=== PATIENT | male | born 1940 | race African-American/Black ===

== ENCOUNTER 2018-04-10 12:35 | Inpatient (IN) | payer MEDICARE ==
[~2018-04-10] VITALS: Ht 167.6 cm; Wt 79.8 kg
--- NOTE | 2018-04-10 14:04 | RAD ---
Portable chest, 04/10/2018: HISTORY: Dizziness, slurred speech, left-sided weakness The heart size and pulmonary vascularity are normal. There is calcific plaquing of the aorta. There is mild linear atelectasis or scarring in the lung bases. The upper lung elias are clear. There is no evidence of pleural fluid or pneumothorax. Moderate hypertrophic spurring is present in the spine. IMPRESSION: Mild bibasilar linear atelectasis and/or scarring. Electronically signed by: Bright Silverio MD (04/10/2018 2:01 PM) [facility]
[2018-04-10 14:13] LABS: BASO # 0.1 x10^3/uL (0.0-0.2); BASO % 1 % (0-3); EOS # 0.2 x10^3/uL (0.0-0.7); EOS % 4 % (0-3); HEMATOCRIT 43.5 % (39.0-53.0); HEMOGLOBIN 14.8 g/dL (13.0-17.5); LYMPH # 1.6 x10^3/uL (1.0-4.8); LYMPH % 24 % (24-48); MEAN CORPUSCULAR HEMOGLOBIN 33 pg (25-35); MEAN CORPUSCULAR HGB CONC 34 g/dL (31-37); MEAN CORPUSCULAR VOLUME 98 fL (79-100); MONO # 0.5 x10^3/uL (0.0-1.1); MONO % 8 % (0-9); NEUT # 4.1 x10^3uL (1.8-7.7); NEUT % 63 % (31-73); PLATELET COUNT 226 x10^3/uL (140-400); RED BLOOD COUNT 4.46 x10^6/uL (4.30-5.70); RED CELL DISTRIBUTION WIDTH 13.3 % (11.5-14.5); WHITE BLOOD COUNT 6.5 x10^3/uL (4.0-11.0)
[2018-04-10 14:22] LABS: PROTHROMBIN TIME PATIENT 12.4 SEC (11.7-14.0)
[2018-04-10 14:26] LABS: CALCIUM 9.8 mg/dL (8.5-10.1); CREATININE 0.9 mg/dL (0.7-1.3); POTASSIUM 4.1 mmol/L (3.5-5.1)
[2018-04-10 14:31] LABS: ALBUMIN 3.8 g/dL (3.4-5.0); BARBITURATES NEG (NEG); BENZODIAZEPINES NEG (NEG); CANNABINOIDS NEG (NEG); COCAINE NEG (NEG); MAGNESIUM 2.2 mg/dL (1.8-2.4); METHADONE NEG (NEG); OPIATES NEG (NEG); PHENCYCLIDINE NEG (NEG); TOTAL PROTEIN 7.6 g/dL (6.4-8.2)
[2018-04-10 14:32] LABS: AMPHETAMINE/METHAMPHETAMINE NEG (NEG)
--- NOTE | 2018-04-10 14:32 | RAD ---
CT of the head without contrast, 04/10/2018: HISTORY: Weakness, dizziness, fall, slurred speech There is mild bilateral cerebral atrophy. There are moderate bilateral patchy deep white matter lucencies compatible with chronic ischemic change. The ventricles are within normal limits in size. There is no shift of the midline structures. There is no evidence of acute intracranial hemorrhage or mass effect. A tiny lucency along the lateral aspect of the right caudate nucleus is compatible with an old lacunar infarct. No abnormal extra-axial fluid collection or mass is seen. A bony defect in the mastoid sinus region is presumably postsurgical. IMPRESSION: 1. Moderate patchy deep white matter lucencies compatible with chronic ischemic change. 2. Tiny old lacunar infarct in the anterior aspect of the right basal ganglia. 3. No acute intracranial abnormality is detected. 4. MR scanning would be more sensitive method of evaluation, if clinically indicated. PQRS Compliance Statement: One or more of the following individualized dose reduction techniques were utilized for this examination: 1. Automated exposure control 2. Adjustment of the mA and/or kV according to patient size 3. Use of iterative reconstruction technique Electronically signed by: Bright Silverio MD (04/10/2018 2:29 PM) [facility]
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
[2018-04-10] MEDS ORDERED: IBUPROFEN 400 MG TABLET. PO PRN (15:15)
[2018-04-10] MEDS ORDERED: ASPIRIN ENTERIC COATED 325 MG TABLET.DR. PO ONE (15:15)
[2018-04-10] MEDS ORDERED: MAGNESIUM HYDROXIDE 2,400 MG/30 ML ORAL.SUSP. PO PRN (15:15)
[2018-04-10] MEDS ORDERED: LABETALOL 20 MG/4 ML DISP.SYRIN. IVP PRN (15:15)
[2018-04-10] MEDS ORDERED: oxyCODONE IR 5 MG TABLET PO PRN (15:15)
[2018-04-10] MEDS ORDERED: MORPHINE SULFATE 2 MG/ML VIAL. IV PRN (15:15)
[2018-04-10] MEDS ORDERED: LABETALOL 20 MG/4 ML DISP.SYRIN. IVP ONE (15:15)
[2018-04-10] MEDS ORDERED: ASPIRIN 325 MG TABLET PO ONE (15:15)
[2018-04-10] MEDS ORDERED: CALCIUM CARBONATE 500 MG TAB.CHEW PO PRN (15:15)
[2018-04-10] MEDS ORDERED: MAG HYDROX/ALUMINUM HYD/SIMETH 30 ML ORAL.SUSP PO PRN (15:15)
[2018-04-10] MEDS ORDERED: ONDANSETRON PF 4 MG/2 ML VIAL. IV PRN ×2 (15:15)
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
[2018-04-10] MEDS ORDERED: MINERAL OIL/PETROLATUM TOPICAL CREAM 113GM JAR. TP PRN (15:30)
--- NOTE | 2018-04-10 15:32 | PHYS DOC ---
Past Medical History Past Medical History: No Pertinent History Alcohol Use: None Drug Use: None Adult General Chief Complaint Chief Complaint: DIZZY/LIGHT HEADED HPI HPI Patient is a 77 year old male with no significant medical history who presents today complaining of left-sided weakness, slurred speech, and dizziness when up and moving that began yesterday. Patient states symptoms began at 12/ noon yesterday. He states he has trouble moving his left upper extremity as well as left lower extremity. Patient states he felt this morning due to difficulty ambulating, denies any loss of consciousness. Denies any headache, chest pain or shortness of breath. PCP Dr. Mitchell Winters Review of Systems Review of Systems Constitutional: Denies fever or chills [] Eyes: Denies change in visual acuity, redness, or eye pain [] HENT: Denies nasal congestion or sore throat [] Respiratory: Denies cough or shortness of breath [] Cardiovascular: No additional information not addressed in HPI [] GI: Denies abdominal pain, nausea, vomiting, bloody stools or diarrhea [] : Denies dysuria or hematuria [] Musculoskeletal: Denies back pain or joint pain [] Integument: Denies rash or skin lesions [] Neurologic: Reports dizziness and left-sided weakness. Denies headache, focal weakness or sensory changes [] All other systems were reviewed and found to be within normal limits, except as documented in this note. Current Medications Current Medications Allergies Allergies Physical Exam Physical Exam Constitutional: Well developed, well nourished, no acute distress, non-toxic appearance. [] HENT: Normocephalic, atraumatic, bilateral external ears normal, oropharynx moist, no oral exudates, nose normal. [] Eyes: PERRLA, EOMI, conjunctiva normal, no discharge. [] Neck: Normal range of motion, no tenderness, supple, no stridor. [] Cardiovascular:Heart rate regular rhythm, no murmur [] Lungs & Thorax: Bilateral breath sounds clear to auscultation [] Abdomen: Bowel sounds normal, soft, no tenderness, no masses, no pulsatile masses. [] Skin: Warm, dry, no erythema, no rash. [] Back: No tenderness, no CVA tenderness. [] Extremities: No tenderness, no cyanosis, no clubbing, no edema. [] Neurologic: Alert and oriented X 3, normal motor function, normal sensory function, no focal deficits noted. Cranial nerves II through XII intact. Slight weakness noted on the left upper extremity and left lower extremity and physical exam. Psychologic: Affect normal, judgement normal, mood normal. [] Current Patient Data Vital Signs Vital Signs Date Time Temp Pulse Resp B/P (MAP) Pulse Ox O2 Delivery O2 Flow Rate FiO2 04/10/18 14:30 64 14 98 04/10/18 13:16 98.1 149/84 (105) Room Air 98.1 Lab Values Laboratory Tests Test 04/10/18 14:00 White Blood Count 6.5 x10^3/uL (4.0-11.0) Red Blood Count 4.46 x10^6/uL (4.30-5.70) Hemoglobin 14.8 g/dL (13.0-17.5) Hematocrit 43.5 % (39.0-53.0) Mean Corpuscular Volume 98 fL (79-100) Mean Corpuscular Hemoglobin 33 pg (25-35) Mean Corpuscular Hemoglobin Concent 34 g/dL (31-37) Red Cell Distribution Width 13.3 % (11.5-14.5) Platelet Count 226 x10^3/uL (140-400) Neutrophils (%) (Auto) 63 % (31-73) Lymphocytes (%) (Auto) 24 % (24-48) Monocytes (%) (Auto) 8 % (0-9) Eosinophils (%) (Auto) 4 % (0-3) H Basophils (%) (Auto) 1 % (0-3) Neutrophils # (Auto) 4.1 x10^3uL (1.8-7.7) Lymphocytes # (Auto) 1.6 x10^3/uL (1.0-4.8) Monocytes # (Auto) 0.5 x10^3/uL (0.0-1.1) Eosinophils # (Auto) 0.2 x10^3/uL (0.0-0.7) Basophils # (Auto) 0.1 x10^3/uL (0.0-0.2) Prothrombin Time 12.4 SEC (11.7-14.0) Prothrombin Time INR 1.0 (0.8-1.1) PTT 26 SEC (24-38) Sodium Level 139 mmol/L (136-145) Potassium Level 4.1 mmol/L (3.5-5.1) Chloride Level 103 mmol/L (98-107) Carbon Dioxide Level 27 mmol/L (21-32) Anion Gap 9 (6-14) Blood Urea Nitrogen 16 mg/dL (8-26) Creatinine 0.9 mg/dL (0.7-1.3) Estimated GFR (Cockcroft-Gault) 99.0 BUN/Creatinine Ratio 18 (6-20) Glucose Level 116 mg/dL (70-99) H Calcium Level 9.8 mg/dL (8.5-10.1) Magnesium Level 2.2 mg/dL (1.8-2.4) Total Bilirubin 1.0 mg/dL (0.2-1.0) Aspartate Amino Transferase (AST) 19 U/L (15-37) Alanine Aminotransferase (ALT) 20 U/L (16-63) Alkaline Phosphatase 69 U/L (46-116) Troponin I Quantitative < 0.017 ng/mL (0.000-0.055) CQ-Uko-N-Type Natriuretic Peptide 52 pg/mL (0-449) Total Protein 7.6 g/dL (6.4-8.2) Albumin 3.8 g/dL (3.4-5.0) Albumin/Globulin Ratio 1.0 (1.0-1.7) Urine Opiates Screen Neg (NEG) Urine Methadone Screen Neg (NEG) Urine Barbiturates Neg (NEG) Urine Phencyclidine Screen Neg (NEG) Urine Amphetamine/Methamphetamine Neg (NEG) Urine Benzodiazepines Screen Neg (NEG) Urine Cocaine Screen Neg (NEG) Urine Cannabinoids Screen Neg (NEG) Urine Ethyl Alcohol Neg (NEG) Laboratory Tests 04/10/18 14:00 Laboratory Tests 04/10/18 14:00 EKG EKG 13:[address] Momin sinus rhythma Hr 61 no STEMI[] Radiology/Procedures Radiology/Procedures []PROCEDURE: PORTABLE CHEST 1V Portable chest, 04/10/2018: HISTORY: Dizziness, slurred speech, left-sided weakness The heart size and pulmonary vascularity are normal. There is calcific plaquing of the aorta. There is mild linear atelectasis or scarring in the lung bases. The upper lung elias are clear. There is no evidence of pleural fluid or pneumothorax. Moderate hypertrophic spurring is present in the spine. IMPRESSION: Mild bibasilar linear atelectasis and/or scarring. Electronically signed by: Bright Silverio MD (04/10/2018 2:01 PM) [facility] DICTATED and SIGNED BY: BRIGHT SILVERIO MD DATE: 04/10/18 1400 PROCEDURE: CT HEAD WO CONTRAST CT of the head without contrast, 04/10/2018: HISTORY: Weakness, dizziness, fall, slurred speech There is mild bilateral cerebral atrophy. There are moderate bilateral patchy deep white matter lucencies compatible with chronic ischemic change. The ventricles are within normal limits in size. There is no shift of the midline structures. There is no evidence of acute intracranial hemorrhage or mass effect. A tiny lucency along the lateral aspect of the right caudate nucleus is compatible with an old lacunar infarct. No abnormal extra-axial fluid collection or mass is seen. A bony defect in the mastoid sinus region is presumably postsurgical. IMPRESSION: 1. Moderate patchy deep white matter lucencies compatible with chronic ischemic change. 2. Tiny old lacunar infarct in the anterior aspect of the right basal ganglia. 3. No acute intracranial abnormality is detected. 4. MR scanning would be more sensitive method of evaluation, if clinically indicated. PQRS Compliance Statement: One or more of the following individualized dose reduction techniques were utilized for this examination: 1. Automated exposure control 2. Adjustment of the mA and/or kV according to patient size 3. Use of iterative reconstruction technique Electronically signed by: Bright Silverio MD (04/10/2018 2:29 PM) [facility] DICTATED and SIGNED BY: BRIGHT SILVERIO MD DATE: 04/10/18 1425 PROCEDURE: BRAIN W/O CONTRAST MRI of the brain without contrast 04/10/2018 Clinical History: Dizziness with left-sided weakness. Slurred speech. Technique: Unenhanced T1-weighted sagittal and axial, T2-weighted axial and coronal and FLAIR, gradient echo and diffusion-weighted axial images of the brain were obtained. Findings: Comparison is made to the patient's CT scan of the head dated 04/10/2018. There is generalized parenchymal atrophy. Patchy, confluent and multiple focal areas of increased signal intensity are seen within the periventricular and subcortical white matter of both cerebral hemispheres along with the vashti on the FLAIR and T2-weighted images consistent with areas of fairly extensive small vessel ischemic disease. Multiple areas of restricted diffusion are seen scattered throughout the right frontal and parietal lobes. These measure 4 mm to 1.6 cm in size. A 5 mm area of restricted diffusion is seen involving the posterior right temporal lobe. These are consistent with areas of acute ischemia/infarction. There is no significant surrounding edema or associated mass effect at this time. No additional acute parenchymal abnormality is seen. No extra-axial fluid collection is seen. Mild to moderate mucosal thickening in seen scattered throughout the paranasal sinuses. There are small bilateral mastoid effusions. Normal flow voids are seen within the major vascular structures surrounding the brain parenchyma. Impression: Multiple areas of acute ischemia/infarction are seen involving the posterior right temporal lobe and the right frontal and parietal lobes as outlined above. There is no significant surrounding edema or associated mass effect at this time. These findings were discussed with the emergency department. Electronically signed by: Lokesh Raman MD (04/10/2018 4:15 PM) [id number] DICTATED and SIGNED BY: LOKESH RAMAN MD DATE: 04/10/18 1609 Course & Med Decision Making Course & Med Decision Making Pertinent Labs and Imaging studies reviewed. (See chart for details) This is a 77-year-old male patient presenting to the ED today with left-sided weakness, slurred speech, dizziness that began yesterday. Stroke scale 6 BP on arrival 149/84 Patient's labs are negative for any acute findings. CT of the head was negative for any acute findings, noted for old lacunar. 15:09 Consulted with who requested we order an MRI for patient. Admitted under DR. Valadez MRI was done and noted for- Multiple areas of acute ischemia/infarction are seen involving the posterior right temporal lobe and the right frontal and parietal lobes. There is no significant surrounding edema or associated mass effect at this time. 16:[address] Tavarez who is in the Ed with patient right now. Dragon Disclaimer Dragon Disclaimer This electronic medical record was generated, in whole or in part, using a voice recognition dictation system. Departure Departure Impression: Primary Impression: Left-sided weakness Additional Impressions: Slurred speech Stroke Disposition: 09 ADMITTED INPATIENT Condition: STABLE Referrals: ULISSES NOWAK MD (PCP) NIHSS Stroke Scale NIH Stroke Scale: NIH Stroke Scale Response (Comments) Value Level of Consciousness: 0 Alert/Responsive 0 LOC Questions: 0 Answers both correctly 0 LOC Commands: 0 Performs both tasks 0 Best Gaze: 0 Normal 0 Visual: 0 No visual loss 0 Facial Palsy: 1 Minor paralysis 1 Motor - Left Arm 2 Some effort 2 Motor - Right Arm 0 No drift 0 Motor - Left Leg 2 Some effort 2 Motor: Right Leg 0 No drift 0 Limb Ataxia: 1 One limb 1 Sensory: 0 No loss 0 Best Language: 0 Normal 0 Dysathria: 0 Normal 0 Extinction and Inattention: 0 Normal 0 Total 6 Problem Qualifiers Additional Impressions: Stroke CVA mechanism: unspecified Qualified Codes: I63.9 - Cerebral infarction, unspecified ROD CHURCHILL APRN Apr 10, 2018 15:32
[2018-04-10] MEDS ORDERED: ENALAPRILAT 1.25 MG/ML VIAL. IVP PRN ×2 (15:45→16:30)
--- NOTE | 2018-04-10 16:17 | RAD ---
MRI of the brain without contrast 04/10/2018 Clinical History: Dizziness with left-sided weakness. Slurred speech. Technique: Unenhanced T1-weighted sagittal and axial, T2-weighted axial and coronal and FLAIR, gradient echo and diffusion-weighted axial images of the brain were obtained. Findings: Comparison is made to the patient's CT scan of the head dated 04/10/2018. There is generalized parenchymal atrophy. Patchy, confluent and multiple focal areas of increased signal intensity are seen within the periventricular and subcortical white matter of both cerebral hemispheres along with the vashti on the FLAIR and T2-weighted images consistent with areas of fairly extensive small vessel ischemic disease. Multiple areas of restricted diffusion are seen scattered throughout the right frontal and parietal lobes. These measure 4 mm to 1.6 cm in size. A 5 mm area of restricted diffusion is seen involving the posterior right temporal lobe. These are consistent with areas of acute ischemia/infarction. There is no significant surrounding edema or associated mass effect at this time. No additional acute parenchymal abnormality is seen. No extra-axial fluid collection is seen. Mild to moderate mucosal thickening in seen scattered throughout the paranasal sinuses. There are small bilateral mastoid effusions. Normal flow voids are seen within the major vascular structures surrounding the brain parenchyma. Impression: Multiple areas of acute ischemia/infarction are seen involving the posterior right temporal lobe and the right frontal and parietal lobes as outlined above. There is no significant surrounding edema or associated mass effect at this time. These findings were discussed with the emergency department. Electronically signed by: Lokesh Raman MD (04/10/2018 4:15 PM) [id number]
[2018-04-10 17:00] VITALS: BP 176/91
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
[2018-04-10 19:37] VITALS: BP 125/71
[2018-04-10] MEDS ORDERED: ATORVASTATIN CALCIUM 10 MG TABLET. PO SCH (21:00)
[2018-04-10] MEDS: ENOXAPARIN 40 MG/0.4 ML SYRINGE. SQ SCH (21:19)
[2018-04-10 23:31] VITALS: BP 159/69
[2018-04-11] VITALS (7 sets, daily range): BP systolic 121–178; BP diastolic 56–93
[2018-04-11 00:54] LABS: BILIRUBIN,URINE NEGATIVE (NEG); CLARITY,URINE CLEAR; COLOR,URINE YELLOW; NITRITE,URINE NEGATIVE (NEG); PH,URINE 5.5; PROTEIN,URINE NEGATIVE (NEG-TRACE)
[2018-04-11 01:09] LABS: BACTERIA,URINE 0 /HPF (0-FEW); RBC,URINE RARE /HPF (0-2); WBC,URINE RARE /HPF (0-4)
[2018-04-11 04:29] LABS: CHOLESTEROL/HDL RATIO 3.6
[2018-04-11] MEDS ORDERED: ASPIRIN ENTERIC COATED 325 MG TABLET.DR. PO SCH (08:00)
--- NOTE | 2018-04-11 08:28 | RAD ---
Carotid ultrasound, 04/10/2018: HISTORY: Dizziness, slurred speech, left-sided weakness Duplex evaluation of the carotid arteries and neck was performed including grayscale, color-flow and spectral Doppler analysis. There is moderate intimal thickening in the carotid arteries bilaterally with mild smooth plaquing at the left carotid bifurcation. The peak systolic velocity in the left internal carotid artery is 73 cm/s with an end-diastolic velocity of 19 cm/s and an internal carotid to common carotid artery ratio of 0.8. The findings suggest luminal narrowing in the 0-50 percent diameter range. There is extensive partially calcified plaque at the right carotid bifurcation. There is a prominent velocity acceleration in the proximal right internal carotid artery up to 360 cm/s. The end-diastolic velocity at that level is 162 cm/s. The internal carotid to common carotid artery ratio is 4.7. These Doppler findings suggest luminal narrowing in the 70-99 percent diameter range. Antegrade flow is present in both vertebral arteries in the neck. IMPRESSION: 1. Mild atherosclerotic plaquing at the left carotid bifurcation with underlying luminal narrowing in the 0-50 percent diameter range. 2. Moderate to severe atherosclerotic plaquing at the right carotid bifurcation with Doppler evidence of narrowing of the proximal right internal carotid artery in the 70-99 percent diameter range. Note: The findings were called to the patient's nurse on the floor at 8:24 AM on 04/11/2018. Note: Stenosis calculations for CT, MRA and conventional angiography are based upon determination of the distal ICA diameter in accordance with the NASCET methodology. Stenosis calculations for Doppler studies are derived from validated velocity criteria which are known to correlate with NASCET methodology of determining stenosis. Electronically signed by: Bright Silverio MD (04/11/2018 8:25 AM) [facility]
[2018-04-11] MEDS: AMINO AC 3%/ELECTROLYTE/GLYCER 1,000 ML IV SCH ×2 (10:16→23:17)
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
--- NOTE | 2018-04-11 10:57 | PDOC ---
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% History of Present Illness History of Present Illness Multiple strokes on MRI Neurology aware and has ordered echo with bubble study Called by RN this morning, 70-99% high-grade stenosis right ICA bifurcation Patient failed swallow Pt did ambulate around the halls with physical therapy yesterday Plan: [facility]As surgery consult-I have discussed with the service Continue aspirin maybe per rectum for now since failed swallow Start some ProcalAmine Echo with bubble today Intermittent speech eval PT OT-I have reviewed rehabilitation options with family and they seemed agreeable Further conditions pending above course Discussed with RN at bedside Vitals Vitals Vital Signs Date Time Temp Pulse Resp B/P (MAP) Pulse Ox O2 Delivery O2 Flow Rate FiO2 04/11/18 07:20 98.4 66 18 121/56 (77) 97 Room Air 98.4 Physical Exam General: Alert, Oriented X3, No acute distress Heart: Regular rate, Normal S1, Normal S2 Abdomen: Soft, No tenderness Extremities: Normal pulses Skin: No breakdown, Other (very dry skin) Labs LABS Laboratory Tests Test 04/10/18 14:00 04/11/18 00:30 04/11/18 03:15 White Blood Count 6.5 x10^3/uL (4.0-11.0) Red Blood Count 4.46 x10^6/uL (4.30-5.70) Hemoglobin 14.8 g/dL (13.0-17.5) Hematocrit 43.5 % (39.0-53.0) Mean Corpuscular Volume 98 fL (79-100) Mean Corpuscular Hemoglobin 33 pg (25-35) Mean Corpuscular Hemoglobin Concent 34 g/dL (31-37) Red Cell Distribution Width 13.3 % (11.5-14.5) Platelet Count 226 x10^3/uL (140-400) Neutrophils (%) (Auto) 63 % (31-73) Lymphocytes (%) (Auto) 24 % (24-48) Monocytes (%) (Auto) 8 % (0-9) Eosinophils (%) (Auto) 4 % (0-3) Basophils (%) (Auto) 1 % (0-3) Neutrophils # (Auto) 4.1 x10^3uL (1.8-7.7) Lymphocytes # (Auto) 1.6 x10^3/uL (1.0-4.8) Monocytes # (Auto) 0.5 x10^3/uL (0.0-1.1) Eosinophils # (Auto) 0.2 x10^3/uL (0.0-0.7) Basophils # (Auto) 0.1 x10^3/uL (0.0-0.2) Prothrombin Time 12.4 SEC (11.7-14.0) Prothromb Time International Ratio 1.0 (0.8-1.1) Activated Partial Thromboplast Time 26 SEC (24-38) Sodium Level 139 mmol/L (136-145) Potassium Level 4.1 mmol/L (3.5-5.1) Chloride Level 103 mmol/L (98-107) Carbon Dioxide Level 27 mmol/L (21-32) Anion Gap 9 (6-14) Blood Urea Nitrogen 16 mg/dL (8-26) Creatinine 0.9 mg/dL (0.7-1.3) Estimated GFR (Cockcroft-Gault) 99.0 BUN/Creatinine Ratio 18 (6-20) Glucose Level 116 mg/dL (70-99) Calcium Level 9.8 mg/dL (8.5-10.1) Magnesium Level 2.2 mg/dL (1.8-2.4) Total Bilirubin 1.0 mg/dL (0.2-1.0) Aspartate Amino Transf (AST/SGOT) 19 U/L (15-37) Alanine Aminotransferase (ALT/SGPT) 20 U/L (16-63) Alkaline Phosphatase 69 U/L (46-116) Troponin I Quantitative < 0.017 ng/mL (0.000-0.055) HV-Fmg-J-Type Natriuretic Peptide 52 pg/mL (0-449) Total Protein 7.6 g/dL (6.4-8.2) Albumin 3.8 g/dL (3.4-5.0) Albumin/Globulin Ratio 1.0 (1.0-1.7) Thyroid Stimulating Hormone (TSH) 0.659 uIU/mL (0.358-3.74) Urine Opiates Screen Neg (NEG) Urine Methadone Screen Neg (NEG) Urine Barbiturates Neg (NEG) Urine Phencyclidine Screen Neg (NEG) Urine Amphetamine/Methamphetamine Neg (NEG) Urine Benzodiazepines Screen Neg (NEG) Urine Cocaine Screen Neg (NEG) Urine Cannabinoids Screen Neg (NEG) Urine Ethyl Alcohol Neg (NEG) Urine Collection Type Unknown Urine Color Yellow Urine Clarity Clear Urine pH 5.5 Urine Specific [place] 1.020 Urine Protein Negative mg/dL (NEG-TRACE) Urine Glucose (UA) Negative mg/dL (NEG) Urine Ketones (Stick) Trace mg/dL (NEG) Urine Blood Negative (NEG) Urine Nitrite Negative (NEG) Urine Bilirubin Negative (NEG) Urine Urobilinogen Dipstick 1.0 mg/dL (0.2 mg/dL) Urine Leukocyte Esterase Negative (NEG) Urine RBC Rare /HPF (0-2) Urine WBC Rare /HPF (0-4) Urine Squamous Epithelial Cells None /LPF Urine Bacteria 0 /HPF (0-FEW) Urine Mucus Mod /LPF Triglycerides Level 56 mg/dL (0-150) Cholesterol Level 242 mg/dL (0-200) LDL Cholesterol, Calculated 164 mg/dL (0-100) VLDL Cholesterol, Calculated 11 mg/dL (0-40) Non-HDL Cholesterol Calculated 175 mg/dL (0-129) HDL Cholesterol 67 mg/dL (40-60) Cholesterol/HDL Ratio 3.6 Review of Systems Review of Systems Pt voices no complaints Assessment and Plan Assessmemt and Plan Problems Medical Problems: (1) Brain TIA Status: Acute (2) Left-sided weakness Status: Acute (3) Slurred speech Status: Acute (4) Stroke Status: Acute Comment Review of Relevant I have reviewed the following items patsy (where applicable) has been applied. Labs Laboratory Tests Test 04/10/18 14:00 04/11/18 00:30 04/11/18 03:15 White Blood Count 6.5 x10^3/uL (4.0-11.0) Red Blood Count 4.46 x10^6/uL (4.30-5.70) Hemoglobin 14.8 g/dL (13.0-17.5) Hematocrit 43.5 % (39.0-53.0) Mean Corpuscular Volume 98 fL (79-100) Mean Corpuscular Hemoglobin 33 pg (25-35) Mean Corpuscular Hemoglobin Concent 34 g/dL (31-37) Red Cell Distribution Width 13.3 % (11.5-14.5) Platelet Count 226 x10^3/uL (140-400) Neutrophils (%) (Auto) 63 % (31-73) Lymphocytes (%) (Auto) 24 % (24-48) Monocytes (%) (Auto) 8 % (0-9) Eosinophils (%) (Auto) 4 % (0-3) Basophils (%) (Auto) 1 % (0-3) Neutrophils # (Auto) 4.1 x10^3uL (1.8-7.7) Lymphocytes # (Auto) 1.6 x10^3/uL (1.0-4.8) Monocytes # (Auto) 0.5 x10^3/uL (0.0-1.1) Eosinophils # (Auto) 0.2 x10^3/uL (0.0-0.7) Basophils # (Auto) 0.1 x10^3/uL (0.0-0.2) Prothrombin Time 12.4 SEC (11.7-14.0) Prothromb Time International Ratio 1.0 (0.8-1.1) Activated Partial Thromboplast Time 26 SEC (24-38) Sodium Level 139 mmol/L (136-145) Potassium Level 4.1 mmol/L (3.5-5.1) Chloride Level 103 mmol/L (98-107) Carbon Dioxide Level 27 mmol/L (21-32) Anion Gap 9 (6-14) Blood Urea Nitrogen 16 mg/dL (8-26) Creatinine 0.9 mg/dL (0.7-1.3) Estimated GFR (Cockcroft-Gault) 99.0 BUN/Creatinine Ratio 18 (6-20) Glucose Level 116 mg/dL (70-99) Calcium Level 9.8 mg/dL (8.5-10.1) Magnesium Level 2.2 mg/dL (1.8-2.4) Total Bilirubin 1.0 mg/dL (0.2-1.0) Aspartate Amino Transf (AST/SGOT) 19 U/L (15-37) Alanine Aminotransferase (ALT/SGPT) 20 U/L (16-63) Alkaline Phosphatase 69 U/L (46-116) Troponin I Quantitative < 0.017 ng/mL (0.000-0.055) SC-Ghu-B-Type Natriuretic Peptide 52 pg/mL (0-449) Total Protein 7.6 g/dL (6.4-8.2) Albumin 3.8 g/dL (3.4-5.0) Albumin/Globulin Ratio 1.0 (1.0-1.7) Thyroid Stimulating Hormone (TSH) 0.659 uIU/mL (0.358-3.74) Urine Opiates Screen Neg (NEG) Urine Methadone Screen Neg (NEG) Urine Barbiturates Neg (NEG) Urine Phencyclidine Screen Neg (NEG) Urine Amphetamine/Methamphetamine Neg (NEG) Urine Benzodiazepines Screen Neg (NEG) Urine Cocaine Screen Neg (NEG) Urine Cannabinoids Screen Neg (NEG) Urine Ethyl Alcohol Neg (NEG) Urine Collection Type Unknown Urine Color Yellow Urine Clarity Clear Urine pH 5.5 [address]rine Specific [place] 1.020 Urine Protein Negative mg/dL (NEG-TRACE) Urine Glucose (UA) Negative mg/dL (NEG) Urine Ketones (Stick) Trace mg/dL (NEG) Urine Blood Negative (NEG) Urine Nitrite Negative (NEG) Urine Bilirubin Negative (NEG) Urine Urobilinogen Dipstick 1.0 mg/dL (0.2 mg/dL) Urine Leukocyte Esterase Negative (NEG) Urine RBC Rare /HPF (0-2) Urine WBC Rare /HPF (0-4) Urine Squamous Epithelial Cells None /LPF Urine Bacteria 0 /HPF (0-FEW) Urine Mucus Mod /LPF Triglycerides Level 56 mg/dL (0-150) Cholesterol Level 242 mg/dL (0-200) LDL Cholesterol, Calculated 164 mg/dL (0-100) VLDL Cholesterol, Calculated 11 mg/dL (0-40) Non-HDL Cholesterol Calculated 175 mg/dL (0-129) HDL Cholesterol 67 mg/dL (40-60) Cholesterol/HDL Ratio 3.6 Laboratory Tests Test 04/10/18 14:00 04/11/18 00:30 04/11/18 03:15 White Blood Count 6.5 x10^3/uL (4.0-11.0) Red Blood Count 4.46 x10^6/uL (4.30-5.70) Hemoglobin 14.8 g/dL (13.0-17.5) Hematocrit 43.5 % (39.0-53.0) Mean Corpuscular Volume 98 fL (79-100) Mean Corpuscular Hemoglobin 33 pg (25-35) Mean Corpuscular Hemoglobin Concent 34 g/dL (31-37) Red Cell Distribution Width 13.3 % (11.5-14.5) Platelet Count 226 x10^3/uL (140-400) Neutrophils (%) (Auto) 63 % (31-73) Lymphocytes (%) (Auto) 24 % (24-48) Monocytes (%) (Auto) 8 % (0-9) Eosinophils (%) (Auto) 4 % (0-3) Basophils (%) (Auto) 1 % (0-3) Neutrophils # (Auto) 4.1 x10^3uL (1.8-7.7) Lymphocytes # (Auto) 1.6 x10^3/uL (1.0-4.8) Monocytes # (Auto) 0.5 x10^3/uL (0.0-1.1) Eosinophils # (Auto) 0.2 x10^3/uL (0.0-0.7) Basophils # (Auto) 0.1 x10^3/uL (0.0-0.2) Prothrombin Time 12.4 SEC (11.7-14.0) Prothromb Time International Ratio 1.0 (0.8-1.1) Activated Partial Thromboplast Time 26 SEC (24-38) Sodium Level 139 mmol/L (136-145) Potassium Level 4.1 mmol/L (3.5-5.1) Chloride Level 103 mmol/L (98-107) Carbon Dioxide Level 27 mmol/L (21-32) Anion Gap 9 (6-14) Blood Urea Nitrogen 16 mg/dL (8-26) Creatinine 0.9 mg/dL (0.7-1.3) Estimated GFR (Cockcroft-Gault) 99.0 BUN/Creatinine Ratio 18 (6-20) Glucose Level 116 mg/dL (70-99) Calcium Level 9.8 mg/dL (8.5-10.1) Magnesium Level 2.2 mg/dL (1.8-2.4) Total Bilirubin 1.0 mg/dL (0.2-1.0) Aspartate Amino Transf (AST/SGOT) 19 U/L (15-37) Alanine Aminotransferase (ALT/SGPT) 20 U/L (16-63) Alkaline Phosphatase 69 U/L (46-116) Troponin I Quantitative < 0.017 ng/mL (0.000-0.055) KG-Vhe-G-Type Natriuretic Peptide 52 pg/mL (0-449) Total Protein 7.6 g/dL (6.4-8.2) Albumin 3.8 g/dL (3.4-5.0) Albumin/Globulin Ratio 1.0 (1.0-1.7) Thyroid Stimulating Hormone (TSH) 0.659 uIU/mL (0.358-3.74) Urine Opiates Screen Neg (NEG) Urine Methadone Screen Neg (NEG) Urine Barbiturates Neg (NEG) Urine Phencyclidine Screen Neg (NEG) Urine Amphetamine/Methamphetamine Neg (NEG) Urine Benzodiazepines Screen Neg (NEG) Urine Cocaine Screen Neg (NEG) Urine Cannabinoids Screen Neg (NEG) Urine Ethyl Alcohol Neg (NEG) Urine Collection Type Unknown Urine Color Yellow Urine Clarity Clear Urine pH 5.5 [address]rine Specific [place] 1.020 Urine Protein Negative mg/dL (NEG-TRACE) Urine Glucose (UA) Negative mg/dL (NEG) Urine Ketones (Stick) Trace mg/dL (NEG) Urine Blood Negative (NEG) Urine Nitrite Negative (NEG) Urine Bilirubin Negative (NEG) Urine Urobilinogen Dipstick 1.0 mg/dL (0.2 mg/dL) Urine Leukocyte Esterase Negative (NEG) Urine RBC Rare /HPF (0-2) Urine WBC Rare /HPF (0-4) Urine Squamous Epithelial Cells None /LPF Urine Bacteria 0 /HPF (0-FEW) Urine Mucus Mod /LPF Triglycerides Level 56 mg/dL (0-150) Cholesterol Level 242 mg/dL (0-200) LDL Cholesterol, Calculated 164 mg/dL (0-100) VLDL Cholesterol, Calculated 11 mg/dL (0-40) Non-HDL Cholesterol Calculated 175 mg/dL (0-129) HDL Cholesterol 67 mg/dL (40-60) Cholesterol/HDL Ratio 3.6 Medications Current Medications Ondansetron HCl (Zofran) 4 mg PRN Q4HRS PRN IV NAUSEA/VOMITING; Start at 15:15; Status UNV Aspirin (Kamran Aspirin) 325 mg 1X ONCE PO ; Start 10/24/18 at 15:15; Stop at 15:20; Status DC Ondansetron HCl (Zofran) 4 mg PRN Q6HRS PRN IV NAUSEA/VOMITING; Start at 15:15 Al Hydroxide/Mg Hydroxide (Mylanta Plus Xs) 30 ml PRN Q3HRS PRN PO HEARTBURN / GAS; Start 04/10/18 at 15:15 Calcium Carbonate/ Glycine (Tums) 500 mg PRN Q3HRS PRN PO UPSET STOMACH; Start 04/10/18 at 15:15 Oxycodone HCl (Roxicodone) 5 mg PRN Q3HRS PRN PO MODERATE-SEVERE PAIN; Start 04/10/18 at 15:15 Morphine Sulfate (Morphine Sulfate) 1 mg PRN Q1HR PRN IV PAIN; Start 04/10/18 at 15:15 Acetaminophen (Tylenol) 650 mg PRN Q6HRS PRN PO Headaches, Temp > 101.5F; Start 04/10/18 at 15:15 Ibuprofen (Motrin) 400 mg PRN Q6HRS PRN PO MILD PAIN; Start 04/10/18 at 15:15 ; Stop 04/11/18 at 08:36; Status DC Magnesium Hydroxide (Milk Of Magnesia) 2,400 mg PRN Q12HR PRN PO CONSTIPATION; Start 04/10/18 at 15:15 Enoxaparin Sodium (Lovenox 40mg Syringe) 40 mg Q24H SQ Last administered on at 21:19; Start 04/10/18 at 21:00 Aspirin (Ecotrin) 325 mg DAILYWBKFT PO Last administered on 04/11/18at 08:48; Start 04/11/18 at 08:00 Aspirin (Ecotrin) 325 mg 1X ONCE PO ; Start 04/10/18 at 15:15; Stop 04/10/18 at 15:16; Status UNV Labetalol HCl (Normodyne Iv Push) 20 mg PRN Q2HR PRN IVP HYPERTENSION, SEE COMMENTS; Start 04/10/18 at 15:15; Stop 04/10/18 at 15:36; Status DC Labetalol HCl (Normodyne Iv Push) 10 mg 1X ONCE IVP ; Start 04/10/18 at 15:15 ; Stop 04/10/18 at 15:36; Status DC Multi-Ingred Cream/Lotion/Oil/ Oint (Hydrocerin Cream) 1 gerson PRN Q1HR PRN TP DRY SKIN / SCALING; Start 04/10/18 at 15:30 Enalaprilat (Vasotec Inj) 1.25 mg PRN Q6HRS PRN IVP HYPERTENSION, SEE COMMENTS ; Start 04/10/18 at 15:45; Stop 04/10/18 at 16:37; Status DC Enalaprilat (Vasotec Inj) 1.25 mg PRN Q6HRS PRN IVP HYPERTENSION, SEE COMMENTS ; Start 04/10/18 at 16:30 Atorvastatin Calcium (Lipitor) 10 mg QHS PO ; Start 04/10/18 at 21:00 Influenza Virus Vaccine (Afluria Trivalent [id number] Syringe) 0.5 ml ONCE ONCE VAX IM Last administered on 04/10/18at 21:26; Start 04/10/18 at 18:30; Stop 04/10/18 at 18:34; Status DC Amino Acids/ Glycerin/ Electrolytes 1,000 ml @ 80 mls/hr [id number] IV Last administered on 04/11/18at 10:16; Start 04/11/18 at 09:00 Vitals/I & O Vital Sign - Last 24 Hours 04/10/18 04/10/18 04/10/18 04/10/18 13:16 14:01 14:30 14:59 Temp 98.1 98.1 Pulse 68 56 64 72 Resp 16 16 14 18 B/P (MAP) 149/84 (105) Pulse Ox 98 98 98 98 O2 Delivery Room Air 04/10/18 04/10/18 04/10/18 04/10/18 15:15 15:24 16:10 17:00 Temp 98.1 97.5 98.1 97.5 Pulse 54 62 54 83 Resp 16 18 20 B/P (MAP) 162/76 176/91 (119) Pulse Ox 98 98 96 O2 Delivery Room Air 04/10/18 04/10/18 04/10/18 04/10/18 17:00 19:37 20:05 23:31 Temp 97.7 97.8 97.7 97.8 Pulse 69 87 Resp 18 18 B/P (MAP) 125/71 (89) 159/69 (99) Pulse Ox 97 98 O2 Delivery Room Air Room Air Room Air Room Air 04/11/18 04/11/18 03:00 07:20 Temp 98.1 98.4 98.1 98.4 Pulse 75 66 Resp 18 18 B/P (MAP) 149/84 (105) 121/56 (77) Pulse Ox 95 97 O2 Delivery Room Air Room Air Intake and Output 04/10/18 04/10/18 04/11/18 15:00 23:00 07:00 Intake Total 0 ml Output Total 150 ml Balance -150 ml KELY ZAMORA MD Apr 11, 2018 10:56
[2018-04-11] MEDS: ASPIRIN 300 MG SUPP.RECT PR SCH (12:00)
--- NOTE | 2018-04-11 12:58 | CARD ---
MR#: [id number] Date of Study: 04/11/2018 Ordering Physician: CHADWICK MEDEL, Referring Physician: KELY ZAMORA Tech: Mercy Unger EILEEN APPROVED REPORT EXAM: Two-dimensional and M-mode echocardiogram with Doppler and color Doppler. Other Information Quality : Good INDICATION CVA/TIA Echo Enhancing Agent Agent/Amount Used: Agitated Saline 8mL 2D DIMENSIONS RVDd2.1 (2.9-3.5cm)Left Atrium(2D)3.2 (1.6-4.0cm) IVSd1.3 (0.7-1.1cm)Aortic Root(2D)2.4 (2.0-3.7cm) LVDd4.1 (3.9-5.9cm)LVOT Diameter2.1 (1.8-2.4cm) PWd1.3 (0.7-1.1cm)LVDs2.4 (2.5-4.0cm) FS (%) 30.0 %SV51.5 ml LVEF(%)60.0 (>50%) Aortic Valve AoV Peak Asim.152.2cm/sAoV VTI29.8cm AO Peak GR.9.3mmHgLVOT Peak Asim.102.1cm/s AO Mean GR.5mmHgAVA (VMAX)2.29cm2 BRE (VTI)2.82hi1LV P 1/2 Kzfu616as Mitral Valve MV E Dvucforj38.6cm/sMV DECEL [id number] MV A Jsofzytf778.1cm/sE/A Ratio0.6 Tricuspid Valve TR P. Dunamrjd841jw/sRAP DVZXAVFN1reFj TR Peak Gr.95dkHfYWKN77wpZy Pulmonary Vein S1 Oqxswjdi95.8cm/sD2 Bicemljw53.2cm/s LEFT VENTRICLE The left ventricle is normal size. There is mild concentric left ventricular hypertrophy. The left ve ntricular systolic function is normal. The Ejection Fraction is 55-60%. There is normal LV segmental wall motion. Transmitral Doppler flow pattern is Grade I-abnormal relaxation pattern. RIGHT VENTRICLE The right ventricle is normal size. The right ventricular systolic function is normal. ATRIA The left atrium size is normal. The right atrium size is normal. The interatrial septum is intact wit h no evidence for an atrial septal defect or patent foramen ovale as noted on 2-D or Doppler imaging. Injection of bubbles documented no interatrial shunt. AORTIC VALVE The aortic valve is calcified but opens well. Doppler and Color Flow revealed mild aortic regurgitati on. There is no significant aortic valvular stenosis. MITRAL VALVE The mitral valve is calcified but opens well. There is no evidence of mitral valve prolapse. There is no mitral valve stenosis. Doppler and Color Flow revealed no mitral valve regurgitation noted. TRICUSPID VALVE The tricuspid valve is normal in structure and function. Doppler and Color Flow revealed trace tricus pid regurgitation. The PA pressure was estimated at 24 mmHg. There is no tricuspid valve stenosis. PULMONIC VALVE The pulmonic valve is not well visualized. Doppler and Color Flow revealed no pulmonic valvular regur gitation. There is no pulmonic valvular stenosis. GREAT VESSELS The aortic root is normal in size. The ascending aorta is normal in size. The IVC was not visualized. PERICARDIAL EFFUSION There is no evidence of significant pericardial effusion. Critical Notification Critical Value: No <Conclusion> The left ventricular systolic function is normal. The Ejection Fraction is 55-60%. There is normal LV segmental wall motion. Transmitral Doppler flow pattern is Grade I-abnormal relaxation pattern. Mild aortic regurgitation. Trace tricuspid regurgitation. The PA pressure was estimated at 24 mmHg. There is no evidence of significant pericardial effusion. Injection of bubbles documented no interatrial shunt. Signed by : Dagoberto Londono, Electronically Approved : 04/11/2018 12:57:16
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
[2018-04-11] MEDS: ENOXAPARIN 40 MG/0.4 ML SYRINGE. SQ SCH (20:48)
[2018-04-11] MEDS: ATORVASTATIN CALCIUM 40 MG TABLET. PO SCH (20:48)
[2018-04-12] MEDS ORDERED: HALOPERIDOL LACTATE 5 MG/ML VIAL. IVP ONE (04:30)
[2018-04-12] MEDS ORDERED: HALOPERIDOL LACTATE 5 MG/ML VIAL. IM ONE (04:30)
[2018-04-12] MEDS ORDERED: HEPARIN SODIUM 5,000 UNIT in IV RINGERS,LACTATED 500ML 500 ML IRR ONE (06:00)
[2018-04-12] MEDS ORDERED: LIDOCAINE 1% PF 30ML 48 ML, SODIUM BICARBONATE VIAL 12 MEQ in TOTAL VOLUME SYRINGE 60 ML ID ONE (06:00)
[2018-04-12 07:00] VITALS: BP 177/83
[2018-04-12] MEDS ORDERED: BARIUM SULFATE 40% (APPLE) 148 GM PWD. PO ONE (10:45)
[2018-04-12 11:00] VITALS: BP 135/83
--- NOTE | 2018-04-12 11:22 | RAD ---
Video dysphasia study, 04/12/2018: History: Dysphasia The swallowing mechanism was examined fluoroscopically in the lateral projection with the patient ingested a variety of food materials mixed with barium. 1.5 minutes of fluoroscopy time was utilized. One video fluoroscopic loop was recorded by a member of the speech Department. When ingesting the thin liquids there was premature spillage of the barium from the vallecula into the piriform sinuses prior to initiation of pharyngeal peristalsis. This resulted in laryngeal penetration and lyly aspiration when the patient ingested thin liquids through the straw. This did elicit a cough reflex. When the thicker materials were utilized there was a lesser degree of premature spillage and no further laryngeal penetration or aspiration. The patient ingested the pudding consistency material and the barium coated solids without difficulty. There was very little vallecular or piriform sinus residue. IMPRESSION: 1. One episode of aspiration of the thin liquids related to delayed initiation of pharyngeal peristalsis and premature spillage from the vallecula. 2. No aspiration was observed with the thicker materials.
--- NOTE | 2018-04-12 12:40 | PDOC ---
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 Met enceph sec to stroke and possibly cognitive delay/vs undiagnosed dementia Accelerated hypertension POA Never smoker, never drinker Dry skin Dysphagia, neurogenic - failed swallow HIgh grade stenosis, Rt ICA bifurcation 70-99% - OP vasc sx appt has been set up History of Present Illness History of Present Illness Multiple strokes on MRI BUbble Study is negative-I have provided a copy and discussed findings with the had a lot of questions about rehabilitation, about vasc surgery plans for the high-grade ICA stenosis on RT on US Discussed with vascular surgery, no acute intervention currently but there is a follow-up set up already next week PT recommends [facility] he failed swallow, [employer] recommends video swallow Plan: social work for rehabilitation screening Video swallow today Continue aspirin per rectum Continue ProcalAmine for now since nothing by mouth Now has a sitter-this will cause problems in discharging to rehabilitation if sitter remains We'll give some Haldol or Ativan during the night Agitation started last night 04/11/18 Vitals Vitals Vital Signs Date Time Temp Pulse Resp B/P (MAP) Pulse Ox O2 Delivery O2 Flow Rate FiO2 04/12/18 11:00 99.9 75 16 135/83 (100) 97 Room Air 99.9 Physical Exam General: Alert, Oriented X3, No acute distress Heart: Regular rate, Normal S1, Normal S2 Abdomen: Soft, No tenderness Extremities: Normal pulses Skin: No breakdown, Other (very dry skin) Review of Systems Review of Systems Confused, sitter present, limited rOS Assessment and Plan Assessmemt and Plan Problems Medical Problems: (1) Brain TIA Status: Acute (2) Left-sided weakness Status: Acute (3) Slurred speech Status: Acute (4) Stroke Status: Acute Comment Review of Relevant I have reviewed the following items patsy (where applicable) has been applied. Labs Laboratory Tests Test 04/10/18 14:00 04/11/18 00:30 04/11/18 03:15 White Blood Count 6.5 x10^3/uL (4.0-11.0) Red Blood Count 4.46 x10^6/uL (4.30-5.70) Hemoglobin 14.8 g/dL (13.0-17.5) Hematocrit 43.5 % (39.0-53.0) Mean Corpuscular Volume 98 fL (79-100) Mean Corpuscular Hemoglobin 33 pg (25-35) Mean Corpuscular Hemoglobin Concent 34 g/dL (31-37) Red Cell Distribution Width 13.3 % (11.5-14.5) Platelet Count 226 x10^3/uL (140-400) Neutrophils (%) (Auto) 63 % (31-73) Lymphocytes (%) (Auto) 24 % (24-48) Monocytes (%) (Auto) 8 % (0-9) Eosinophils (%) (Auto) 4 % (0-3) Basophils (%) (Auto) 1 % (0-3) Neutrophils # (Auto) 4.1 x10^3uL (1.8-7.7) Lymphocytes # (Auto) 1.6 x10^3/uL (1.0-4.8) Monocytes # (Auto) 0.5 x10^3/uL (0.0-1.1) Eosinophils # (Auto) 0.2 x10^3/uL (0.0-0.7) Basophils # (Auto) 0.1 x10^3/uL (0.0-0.2) Prothrombin Time 12.4 SEC (11.7-14.0) Prothromb Time International Ratio 1.0 (0.8-1.1) Activated Partial Thromboplast Time 26 SEC (24-38) Sodium Level 139 mmol/L (136-145) Potassium Level 4.1 mmol/L (3.5-5.1) Chloride Level 103 mmol/L (98-107) Carbon Dioxide Level 27 mmol/L (21-32) Anion Gap 9 (6-14) Blood Urea Nitrogen 16 mg/dL (8-26) Creatinine 0.9 mg/dL (0.7-1.3) Estimated GFR (Cockcroft-Gault) 99.0 BUN/Creatinine Ratio 18 (6-20) Glucose Level 116 mg/dL (70-99) Calcium Level 9.8 mg/dL (8.5-10.1) Magnesium Level 2.2 mg/dL (1.8-2.4) Total Bilirubin 1.0 mg/dL (0.2-1.0) Aspartate Amino Transf (AST/SGOT) 19 U/L (15-37) Alanine Aminotransferase (ALT/SGPT) 20 U/L (16-63) Alkaline Phosphatase 69 U/L (46-116) Troponin I Quantitative < 0.017 ng/mL (0.000-0.055) WB-Mrg-L-Type Natriuretic Peptide 52 pg/mL (0-449) Total Protein 7.6 g/dL (6.4-8.2) Albumin 3.8 g/dL (3.4-5.0) Albumin/Globulin Ratio 1.0 (1.0-1.7) Thyroid Stimulating Hormone (TSH) 0.659 uIU/mL (0.358-3.74) Urine Opiates Screen Neg (NEG) Urine Methadone Screen Neg (NEG) Urine Barbiturates Neg (NEG) Urine Phencyclidine Screen Neg (NEG) Urine Amphetamine/Methamphetamine Neg (NEG) Urine Benzodiazepines Screen Neg (NEG) Urine Cocaine Screen Neg (NEG) Urine Cannabinoids Screen Neg (NEG) Urine Ethyl Alcohol Neg (NEG) Urine Collection Type Unknown Urine Color Yellow Urine Clarity Clear Urine pH 5.5 Urine Specific [place] 1.020 Urine Protein Negative mg/dL (NEG-TRACE) Urine Glucose (UA) Negative mg/dL (NEG) Urine Ketones (Stick) Trace mg/dL (NEG) Urine Blood Negative (NEG) Urine Nitrite Negative (NEG) Urine Bilirubin Negative (NEG) Urine Urobilinogen Dipstick 1.0 mg/dL (0.2 mg/dL) Urine Leukocyte Esterase Negative (NEG) Urine RBC Rare /HPF (0-2) Urine WBC Rare /HPF (0-4) Urine Squamous Epithelial Cells None /LPF Urine Bacteria 0 /HPF (0-FEW) Urine Mucus Mod /LPF Triglycerides Level 56 mg/dL (0-150) Cholesterol Level 242 mg/dL (0-200) LDL Cholesterol, Calculated 164 mg/dL (0-100) VLDL Cholesterol, Calculated 11 mg/dL (0-40) Non-HDL Cholesterol Calculated 175 mg/dL (0-129) HDL Cholesterol 67 mg/dL (40-60) Cholesterol/HDL Ratio 3.6 Medications Current Medications Ondansetron HCl (Zofran) 4 mg PRN Q4HRS PRN IV NAUSEA/VOMITING; Start at 15:15; Status UNV Aspirin (Kamran Aspirin) 325 mg 1X ONCE PO ; Start 04/10/18 at 15:15; Stop 10/ 24/18 at 15:20; Status DC Ondansetron HCl (Zofran) 4 mg PRN Q6HRS PRN IV NAUSEA/VOMITING; Start at 15:15 Al Hydroxide/Mg Hydroxide (Mylanta Plus Xs) 30 ml PRN Q3HRS PRN PO HEARTBURN / GAS; Start 04/10/18 at 15:15 Calcium Carbonate/ Glycine (Tums) 500 mg PRN Q3HRS PRN PO UPSET STOMACH; Start 04/10/18 at 15:15 Oxycodone HCl (Roxicodone) 5 mg PRN Q3HRS PRN PO MODERATE-SEVERE PAIN; Start 04/10/18 at 15:15; Stop 04/11/18 at 10:58; Status DC Morphine Sulfate (Morphine Sulfate) 1 mg PRN Q1HR PRN IV PAIN; Start 04/10/18 at 15:15 Acetaminophen (Tylenol) 650 mg PRN Q6HRS PRN PO Headaches, Temp > 101.5F; Start 04/10/18 at 15:15 Ibuprofen (Motrin) 400 mg PRN Q6HRS PRN PO MILD PAIN; Start 04/10/18 at 15:15 ; Stop 04/11/18 at 08:36; Status DC Magnesium Hydroxide (Milk Of Magnesia) 2,400 mg PRN Q12HR PRN PO CONSTIPATION; Start 04/10/18 at 15:15; Stop 04/11/18 at 10:58; Status DC Enoxaparin Sodium (Lovenox 40mg Syringe) 40 mg Q24H SQ Last administered on at 20:48; Start 04/10/18 at 21:00 Aspirin (Ecotrin) 325 mg DAILYWBKFT PO Last administered on 04/11/18at 08:48; Start 04/11/18 at 08:00; Stop 04/11/18 at 10:58; Status DC Aspirin (Ecotrin) 325 mg 1X ONCE PO ; Start 04/10/18 at 15:15; Stop 04/10/18 at 15:16; Status UNV Labetalol HCl (Normodyne Iv Push) 20 mg PRN Q2HR PRN IVP HYPERTENSION, SEE COMMENTS; Start 04/10/18 at 15:15; Stop 04/10/18 at 15:36; Status DC Labetalol HCl (Normodyne Iv Push) 10 mg 1X ONCE IVP ; Start 04/10/18 at 15:15 ; Stop 04/10/18 at 15:36; Status DC Multi-Ingred Cream/Lotion/Oil/ Oint (Hydrocerin Cream) 1 gerson PRN Q1HR PRN TP DRY SKIN / SCALING; Start 04/10/18 at 15:30 Enalaprilat (Vasotec Inj) 1.25 mg PRN Q6HRS PRN IVP HYPERTENSION, SEE COMMENTS ; Start 04/10/18 at 15:45; Stop 04/10/18 at 16:37; Status DC Enalaprilat (Vasotec Inj) 1.25 mg PRN Q6HRS PRN IVP HYPERTENSION, SEE COMMENTS ; Start 04/10/18 at 16:30 Atorvastatin Calcium (Lipitor) 10 mg QHS PO ; Start 04/10/18 at 21:00; Stop at 10:58; Status DC Influenza Virus Vaccine (Afluria Trivalent [id number] Syringe) 0.5 ml ONCE ONCE VAX IM Last administered on 04/10/18at 21:26; Start 04/10/18 at 18:30; Stop 04/10/18 at 18:34; Status DC Amino Acids/ Glycerin/ Electrolytes 1,000 ml @ 80 mls/hr [id number] IV Last administered on 04/11/18at 23:17; Start 04/11/18 at 09:00 Aspirin (Aspirin) 300 mg DAILY AR ; Start 04/11/18 at 12:00 Atorvastatin Calcium (Lipitor) 40 mg QHS PO ; Start 04/11/18 at 21:00 Heparin Sodium (Porcine) 5000 unit/Ringer's Solution 505 ml @ 505 mls/hr 1X ONCE IRR ; Start 04/12/18 at 06:00; Stop 04/12/18 at 06:59; Status Cancel Lidocaine HCl 48 ml/Sodium Bicarbonate 12 meq/Miscellaneous 60 ml @ 60 mls/hr 1X ONCE ID ; Start 04/12/18 at 06:00; Stop 04/12/18 at 06:59; Status Cancel Lorazepam (Ativan) 1 mg PRN Q4HRS PRN IV ANXIETY / AGITATION Last administered on 04/12/18at 03:43; Start 04/11/18 at 13:15 Haloperidol Lactate (Haldol Inj) 1 mg 1X ONCE IM ; Start 04/12/18 at 04:30; Stop 04/12/18 at 04:30; Status DC Haloperidol Lactate (Haldol Inj) 1 mg 1X ONCE IVP ; Start 04/12/18 at 04:30; Stop 04/12/18 at 04:31; Status DC Barium Sulfate (Varibar Thin Liquid Apple) 148 gm 1X ONCE PO ; Start 04/12/18 at 10:45; Stop 04/12/18 at 10:46; Status DC Vitals/I & O Vital Sign - Last 24 Hours 04/11/18 04/11/18 04/11/18 04/11/18 15:30 19:51 19:51 20:00 Temp 97.9 98.4 97.9 98.4 Pulse 87 84 73 Resp 20 20 B/P (MAP) 156/80 (105) 178/93 (121) 135/70 (91) Pulse Ox 97 100 O2 Delivery Room Air Room Air Room Air 04/11/18 04/12/18 04/12/18 04/12/18 23:56 03:10 07:00 11:00 Temp 98.3 99.7 99.9 98.3 99.7 99.9 Pulse 84 86 75 Resp 20 20 16 16 B/P (MAP) 156/90 (112) 177/83 (114) 135/83 (100) Pulse Ox 96 95 97 O2 Delivery Room Air Room Air Room Air Intake and Output 04/11/18 04/11/18 04/12/18 15:00 23:00 07:00 Intake Total 0 ml 0 ml Output Total 3 ml 350 ml Balance 0 ml -3 ml -350 ml KELY ZAMORA MD Apr 12, 2018 12:40
[2018-04-12] MEDS ORDERED: HALOPERIDOL LACTATE 5 MG/ML VIAL. IVP PRN (12:45)
[2018-04-12] MEDS: ASPIRIN 300 MG SUPP.RECT PR SCH (15:22)
[2018-04-12 15:32] VITALS: BP 177/67
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
[2018-04-12] MEDS: AMINO AC 3%/ELECTROLYTE/GLYCER 1,000 ML IV SCH ×2 (17:31→21:19)
[2018-04-12 19:43] VITALS: BP 128/72
[2018-04-12] MEDS: ATORVASTATIN CALCIUM 40 MG TABLET. PO SCH (20:10)
[2018-04-12] MEDS: ENOXAPARIN 40 MG/0.4 ML SYRINGE. SQ SCH (20:16)
[2018-04-13] VITALS (7 sets, daily range): BP systolic 133–182; BP diastolic 67–116
[2018-04-13] MEDS: ASPIRIN 300 MG SUPP.RECT PR SCH (08:08)
[2018-04-13] MEDS: AMINO AC 3%/ELECTROLYTE/GLYCER 1,000 ML IV SCH ×2 (08:38→20:00)
--- NOTE | 2018-04-13 12:28 | PDOC ---
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 Met enceph sec to stroke and possibly cognitive delay/vs undiagnosed dementia Accelerated hypertension POA Never smoker, never drinker Dry skin Dysphagia, neurogenic - failed swallow HIgh grade stenosis, Rt ICA bifurcation 70-99% - OP vasc sx appt has been set up History of Present Illness History of Present Illness Multiple strokes on MRI BUbble Study is negative-I have provided a copy and discussed findings with the Passed swallow, dysphagia 1 on thickened liquids now Again other family members are asking about vascular surgery for the ICA-they had a lot of questions and was quite apprehensive about surgery Asking about a pill that can dissolve the clot Discussed with vascular surgery, no acute intervention currently but there is a follow-up set up already next week PT recommends [facility] Plan: social work for rehabilitation screening Cont dysphagia, cont procalamine for now for supplementation Check ASA to PO from [place] Some agitation 2 days ago and seems that medications are still lingering Decreased morphine and Ativan to much lower dose SW rehab dc on Sunday Vitals Vitals Vital Signs Date Time Temp Pulse Resp B/P (MAP) Pulse Ox O2 Delivery O2 Flow Rate FiO2 04/13/18 11:05 98.8 95 19 145/80 (101) 97 Room Air 98.8 Physical Exam General: Alert, Oriented X3, No acute distress Heart: Regular rate, Normal S1, Normal S2 Abdomen: Soft, No tenderness Extremities: Normal pulses Skin: No breakdown, Other (very dry skin) Review of Systems Review of Systems Sleep I did not awaken Assessment and Plan Assessmemt and Plan Problems Medical Problems: (1) Brain TIA Status: Acute (2) Left-sided weakness Status: Acute (3) Slurred speech Status: Acute (4) Stroke Status: Acute Comment Review of Relevant I have reviewed the following items patsy (where applicable) has been applied. Medications Current Medications Ondansetron HCl (Zofran) 4 mg PRN Q4HRS PRN IV NAUSEA/VOMITING; Start at 15:15; Status UNV Aspirin (Kamran Aspirin) 325 mg 1X ONCE PO ; Start 04/10/18 at 15:15; Stop at 15:20; Status DC Ondansetron HCl (Zofran) 4 mg PRN Q6HRS PRN IV NAUSEA/VOMITING; Start at 15:15 Al Hydroxide/Mg Hydroxide (Mylanta Plus Xs) 30 ml PRN Q3HRS PRN PO HEARTBURN / GAS; Start 04/10/18 at 15:15 Calcium Carbonate/ Glycine (Tums) 500 mg PRN Q3HRS PRN PO UPSET STOMACH; Start 04/10/18 at 15:15 Oxycodone HCl (Roxicodone) 5 mg PRN Q3HRS PRN PO MODERATE-SEVERE PAIN; Start 04/10/18 at 15:15; Stop 04/11/18 at 10:58; Status DC Morphine Sulfate (Morphine Sulfate) 1 mg PRN Q1HR PRN IV PAIN; Start 04/10/18 at 15:15 Acetaminophen (Tylenol) 650 mg PRN Q6HRS PRN PO Headaches, Temp > 101.5F; Start 04/10/18 at 15:15 Ibuprofen (Motrin) 400 mg PRN Q6HRS PRN PO MILD PAIN; Start 04/10/18 at 15:15 ; Stop 04/11/18 at 08:36; Status DC Magnesium Hydroxide (Milk Of Magnesia) 2,400 mg PRN Q12HR PRN PO CONSTIPATION; Start 04/10/18 at 15:15; Stop 04/11/18 at 10:58; Status DC Enoxaparin Sodium (Lovenox 40mg Syringe) 40 mg Q24H SQ Last administered on at 20:16; Start 04/10/18 at 21:00 Aspirin (Ecotrin) 325 mg DAILYWBKFT PO Last administered on 04/11/18at 08:48; Start 04/11/18 at 08:00; Stop 04/11/18 at 10:58; Status DC Aspirin (Ecotrin) 325 mg 1X ONCE PO ; Start 04/10/18 at 15:15; Stop 04/10/18 at 15:16; Status UNV Labetalol HCl (Normodyne Iv Push) 20 mg PRN Q2HR PRN IVP HYPERTENSION, SEE COMMENTS; Start 04/10/18 at 15:15; Stop 04/10/18 at 15:36; Status DC Labetalol HCl (Normodyne Iv Push) 10 mg 1X ONCE IVP ; Start 04/10/18 at 15:15 ; Stop 04/10/18 at 15:36; Status DC Multi-Ingred Cream/Lotion/Oil/ Oint (Hydrocerin Cream) 1 gerson PRN Q1HR PRN TP DRY SKIN / SCALING; Start 04/10/18 at 15:30 Enalaprilat (Vasotec Inj) 1.25 mg PRN Q6HRS PRN IVP HYPERTENSION, SEE COMMENTS ; Start 04/10/18 at 15:45; Stop 04/10/18 at 16:37; Status DC Enalaprilat (Vasotec Inj) 1.25 mg PRN Q6HRS PRN IVP HYPERTENSION, SEE COMMENTS Last administered on 04/13/18at 08:08; Start 04/10/18 at 16:30 Atorvastatin Calcium (Lipitor) 10 mg QHS PO ; Start 04/10/18 at 21:00; Stop at 10:58; Status DC Influenza Virus Vaccine (Afluria Trivalent [id number] Syringe) 0.5 ml ONCE ONCE VAX IM Last administered on 04/10/18at 21:26; Start 04/10/18 at 18:30; Stop 04/10/18 at 18:34; Status DC Amino Acids/ Glycerin/ Electrolytes 1,000 ml @ 80 mls/hr [id number] IV Last administered on 04/13/18at 08:38; Start 04/11/18 at 09:00 Aspirin (Aspirin) 300 mg DAILY GA Last administered on 04/13/18at 08:08; Start 04/11/18 at 12:00 Atorvastatin Calcium (Lipitor) 40 mg QHS PO Last administered on 04/12/18at 20: 10; Start 04/11/18 at 21:00 Heparin Sodium (Porcine) 5000 unit/Ringer's Solution 505 ml @ 505 mls/hr 1X ONCE IRR ; Start 04/12/18 at 06:00; Stop 04/12/18 at 06:59; Status Cancel Lidocaine HCl 48 ml/Sodium Bicarbonate 12 meq/Miscellaneous 60 ml @ 60 mls/hr 1X ONCE ID ; Start 04/12/18 at 06:00; Stop 04/12/18 at 06:59; Status Cancel Lorazepam (Ativan) 1 mg PRN Q4HRS PRN IV ANXIETY / AGITATION Last administered on 04/12/18at 03:43; Start 04/11/18 at 13:15; Stop 04/12/18 at 12:41; Status DC Haloperidol Lactate (Haldol Inj) 1 mg 1X ONCE IM ; Start 04/12/18 at 04:30; Stop 04/12/18 at 04:30; Status DC Haloperidol Lactate (Haldol Inj) 1 mg 1X ONCE IVP ; Start 04/12/18 at 04:30; Stop 04/12/18 at 04:31; Status DC Barium Sulfate (Varibar Thin Liquid Apple) 148 gm 1X ONCE PO ; Start 04/12/18 at 10:45; Stop 04/12/18 at 10:46; Status DC Lorazepam (Ativan) 2 mg PRN Q4HRS PRN IV ANXIETY / AGITATION; Start 04/12/18 at 12:45 Haloperidol Lactate (Haldol Inj) 5 mg PRN Q6HRS PRN IVP AGITATION 2nd choice; Start 04/12/18 at 12:45 Vitals/I & O Vital Sign - Last 24 Hours 04/12/18 04/12/18 04/12/18 04/12/18 15:32 19:43 20:00 23:18 Temp 98.2 97.9 98.2 97.9 Pulse 75 90 Resp 20 20 20 B/P (MAP) 177/67 (103) 128/72 (90) Pulse Ox 95 95 O2 Delivery Room Air Room Air Room Air Room Air 04/13/18 04/13/18 04/13/18 04/13/18 03:54 07:50 08:00 08:00 Temp 98.0 97.9 98.0 97.9 Pulse 69 138 Resp 20 20 B/P (MAP) 153/75 (101) 182/116 (138) Pulse Ox 95 97 O2 Delivery Room Air Room Air Room Air Room Air 04/13/18 04/13/18 04/13/18 08:08 08:35 11:05 Temp 98.8 98.8 Pulse 82 73 95 Resp 19 B/P (MAP) 182/116 166/81 (109) 145/80 (101) Pulse Ox 97 O2 Delivery Room Air Intake and Output 04/12/18 04/12/18 04/13/18 15:00 23:00 07:00 Intake Total 600 ml 0 ml Balance 600 ml 0 ml KELY ZAMORA MD Apr 13, 2018 12:28
[2018-04-13] MEDS ORDERED: MORPHINE SULFATE 2 MG/ML VIAL. IV PRN (12:30)
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
[2018-04-13] MEDS: ATORVASTATIN CALCIUM 40 MG TABLET. PO SCH (20:15)
[2018-04-13] MEDS: ENOXAPARIN 40 MG/0.4 ML SYRINGE. SQ SCH (20:16)
[2018-04-14 03:00] VITALS: BP 141/71
[2018-04-14] MEDS: AMINO AC 3%/ELECTROLYTE/GLYCER 1,000 ML IV SCH ×2 (05:31→18:53)
[2018-04-14 07:50] VITALS: BP 138/50
[2018-04-14] MEDS: ASPIRIN ENTERIC COATED 325 MG TABLET.DR. PO SCH (08:46)
[2018-04-14 11:14] VITALS: BP 145/71
[2018-04-14] MEDS ORDERED: ASPI325T11 PO (11:59)
[2018-04-14] MEDS ORDERED: LORA-434 PO (11:59)
[2018-04-14] MEDS ORDERED: ATOR40TA59 PO (11:59)
--- NOTE | 2018-04-14 12:02 | PDOC3 ---
Discharge Summary Visit Information Date of Admission: Apr 10, 2018 Date of Discharge: Apr 14, 2018 Admitting Diagnosis Comment: Multiple areas of acute ischemia/infarction posterior right temporal lobe and the right frontal and parietal lobes .Old right basal ganglia infarct on CT Met enceph sec to stroke and possibly cognitive delay/vs undiagnosed dementia Accelerated hypertension POA Never smoker, never drinker Dry skin Dysphagia, neurogenic - failed swallow HIgh grade stenosis, Rt ICA bifurcation 70-99% - OP vasc sx appt has been set up Final Diagnosis Problems Medical Problems: (1) Brain TIA Status: Acute (2) Left-sided weakness Status: Acute (3) Slurred speech Status: Acute (4) Stroke Status: Acute Brief Hospital Course Allergies Allergies Coded Allergies Type Severity Reaction Last Updated Verified No Known Drug Allergies 04/10/18 No Vital Signs Vital Signs Date Time Temp Pulse Resp B/P (MAP) Pulse Ox O2 Delivery O2 Flow Rate FiO2 04/14/18 11:14 98.1 82 18 145/71 (95) 96 Room Air 98.1 Brief Hospital Course Mr. Lopez is a 77 old [place] male with good ADLs prior to admission, came from home, comes in because of acute stroke, CVA on multiple areas, right frontal right parietal lobes. Neg bubble study. He has evidence of old right basal ganglia infarct on CT but with no residuals. Course remarkable for dysphagia and dementia or encephalopathy needing Haldol , Ativan. Now passed swallow, on dysphagia diet. Initially we were giving aspirin per rectum. Now back to aspirin per oral. Blood pressure good. Allow permissive hypertension. Accepted at [facility]. Full code, course remarkable for consulting vasc surgery because of significant stenosis ICA in the light of acute CVA. He already has a follow-up with vascular surgery at [facility] that has been arranged by vascular surgery [employer]> might need stenting., Consults performed vas surgery neurology Procedures performed brain imaging, ultrasound carotids Discharge disposition to [facility] dc 34 mins Discharge Information Condition at Discharge: Improved, Stable Disposition/Orders: Other (snu) Scheduled Aspirin (Aspirin Ec) 325 Mg Tablet., 325 MG PO DAILYWBKFT, #30 Prescribed by: KELY ZAMORA on 04/14/18 1159 Atorvastatin Calcium (Atorvastatin Calcium) 40 Mg Tablet, 40 MG PO QHS, #30 Prescribed by: KELY ZAMORA on 04/14/18 1159 Lorazepam (Ativan) 1 Mg Tablet, 1 MG PO TID, #30 Prescribed by: KELY ZAMORA on 04/14/18 1159 KELY ZAMORA MD Apr 14, 2018 12:02
--- NOTE | 2018-04-14 12:12 | DISCH ---
DISCHARGE DISCHARGE INFORMATION: DISCHARGE DATE: Apr 14, 2018 FINAL DIAGNOSIS Problems Medical Problems: (1) Brain TIA Status: Acute (2) Left-sided weakness Status: Acute (3) Slurred speech Status: Acute (4) Stroke Status: Acute CODE STATUS: Code Status: Full PENITENTIARY: SNF STAY <30 DAYS: Yes HOSPICE: HOSPICE: No HOSPICE EVAL & TREAT: No LTAC: ADMIT TO LTAC: No POST DISCHARGE ORDERS: ACTIVITY ORDERS: Activity as tolerated WEIGHT BEARING STATUS: As tolerated DIET AFTER DISCHARGE: Cardiac CHECKS AFTER DISCHARGE: CHECKS AFTER DISCHARGE: Check blood press - daily TREATMENT/EQUIPMENT ORDERS: ADAPTIVE EQUIPMENT NEEDED: Four wheeled walker Physical Therapy For: Evalulation/Treatment Occupational Therapy For: Evaluation/Treatment Speech Language Pathology For: Swallow Cognition DISCHARGE MEDICATIONS: Home Meds Active Scripts Lorazepam (ATIVAN) 1 Mg Tablet, 1 MG PO TID, #30 TAB Prov:KELY ZAMORA MD 04/14/18 Aspirin (ASPIRIN EC) 325 Mg Tablet.dr, 325 MG PO DAILYWBKFT, #30 TAB.SR Prov:KELY ZAMORA MD 04/14/18 Atorvastatin Calcium (ATORVASTATIN CALCIUM) 40 Mg Tablet, 40 MG PO QHS, #30 TAB Prov:KELY ZAMORA MD 04/14/18 KELY ZAMORA MD Apr 14, 2018 12:12
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
[2018-04-14 15:19] VITALS: BP 158/75
[2018-04-14] MEDS: ACETAMINOPHEN 325 MG TABLET. PO PRN (15:25)
[2018-04-14] MEDS ORDERED: BISACODYL 10 MG SUPP.RECT. PR ONE (15:30)
--- NOTE | 2018-04-14 16:25 | RAD ---
Examination: CT HEAD WO CONTRAST History: MS changes. Stroke. F/U
PREVIOUS Comparison/Correlation: CT head without contrast 04/10/2018, MRI brain without contrast 04/10/2018 Findings: The topogram is normal. Axial images of the head were obtained without contrast. Atrophy and chronic ischemic changes white matter are present. There is progression of low-attenuation involving the right frontal deep white matter superiorly. This low-attenuation extends to the right basal ganglia more inferiorly. Old right caudate head lacunar infarct is present. No intracranial hemorrhage, midline shift, or significant mass effect. Impression: Infarct involving the right high frontal deep white matter and adjacent basal ganglia is more evident in the interval as compared to 04/10/2018 CT head without contrast. No intracranial hemorrhage or significant mass effect. Electronically signed by: Cipriano Akhtar MD (04/14/2018 4:22 PM) [facility]
[2018-04-14 19:30] VITALS: BP 167/73
[2018-04-14] MEDS: ATORVASTATIN CALCIUM 40 MG TABLET. PO SCH (20:54)
[2018-04-14] MEDS: ENOXAPARIN 40 MG/0.4 ML SYRINGE. SQ SCH (20:54)
[2018-04-14 23:30] VITALS: BP 167/69
[2018-04-15] MEDS: ACETAMINOPHEN 325 MG TABLET. PO PRN (00:28)
[2018-04-15 03:50] VITALS: BP 136/58
[2018-04-15] MEDS: AMINO AC 3%/ELECTROLYTE/GLYCER 1,000 ML IV SCH (06:09)
[2018-04-15 07:37] VITALS: BP 150/79
[2018-04-15] MEDS: ASPIRIN ENTERIC COATED 325 MG TABLET.DR. PO SCH (08:00)
[2018-04-15 11:06] VITALS: BP 139/78
--- NOTE | 2018-04-15 12:17 | PDOC ---
PROGRESS NOTES Assessment Problems Medical Problems: (1) Brain TIA Status: Acute (2) Left-sided weakness Status: Acute (3) Slurred speech Status: Acute (4) Stroke Status: Acute Acute multiple right frontal, parietal and temporal lobe infarcts. Repeat head CT unremarkable Metabolic encephalopathy. Plan ASA 325 mg daily. Lipitor 40 mg HS. Consulted Vascular Surgery for carotid artery stenosis, agree with deferring endarterectomy and tell he has had some rehab. Rehab, transfer to inpatient facility anytime. Discussed with family Subjective He denies pain Objective Vital Signs Date Time Temp Pulse Resp B/P (MAP) Pulse Ox O2 Delivery O2 Flow Rate FiO2 04/15/18 11:06 98.9 67 20 139/78 (98) 97 Room Air 98.9 Intake and Output 04/15/18 07:00 Intake Total 610 ml Balance 610 ml Intake Oral 610 ml # Voids 6 PHYSICAL EXAM Alert. Oriented to person, Follows a few commands, does not know date or location. PERRL. EOMI. CN: left central facial weakness, otherwise no focal findings. Muscle tone: Increased on left Muscle strength: 1-2/5 left hemiparesis DTR: 1+ Plantar reflex: extensor on left, flexor on right Gait: not examined in bed. Sensory exam: no abnormal findings. No cerebellar signs elicited out of proportion to the left hemiparesis Review of Relevant I have reviewed the following items patsy (where applicable) has been applied. Labs Laboratory Tests Test 04/14/18 14:40 Glucose (Fingerstick) 103 mg/dL (70-99) Laboratory Tests Test 04/14/18 14:40 Glucose (Fingerstick) 103 mg/dL (70-99) Medications Current Medications Ondansetron HCl (Zofran) 4 mg PRN Q4HRS PRN IV NAUSEA/VOMITING; Start at 15:15; Status UNV Aspirin (Kamran Aspirin) 325 mg 1X ONCE PO ; Start 04/10/18 at 15:15; Stop at 15:20; Status DC Ondansetron HCl (Zofran) 4 mg PRN Q6HRS PRN IV NAUSEA/VOMITING; Start at 15:15 Al Hydroxide/Mg Hydroxide (Mylanta Plus Xs) 30 ml PRN Q3HRS PRN PO HEARTBURN / GAS; Start 04/10/18 at 15:15 Calcium Carbonate/ Glycine (Tums) 500 mg PRN Q3HRS PRN PO UPSET STOMACH; Start 04/10/18 at 15:15 Oxycodone HCl (Roxicodone) 5 mg PRN Q3HRS PRN PO MODERATE-SEVERE PAIN; Start 04/10/18 at 15:15; Stop 04/11/18 at 10:58; Status DC Morphine Sulfate (Morphine Sulfate) 1 mg PRN Q1HR PRN IV PAIN; Start 04/10/18 at 15:15; Stop 04/13/18 at 12:26; Status DC Acetaminophen (Tylenol) 650 mg PRN Q6HRS PRN PO Headaches, Temp > 101.5F Last administered on 04/15/18at 00:28; Start 04/10/18 at 15:15 Ibuprofen (Motrin) 400 mg PRN Q6HRS PRN PO MILD PAIN; Start 04/10/18 at 15:15 ; Stop 04/11/18 at 08:36; Status DC Magnesium Hydroxide (Milk Of Magnesia) 2,400 mg PRN Q12HR PRN PO CONSTIPATION; Start 04/10/18 at 15:15; Stop 04/11/18 at 10:58; Status DC Enoxaparin Sodium (Lovenox 40mg Syringe) 40 mg Q24H SQ Last administered on at 20:54; Start 04/10/18 at 21:00 Aspirin (Ecotrin) 325 mg DAILYWBKFT PO Last administered on 04/11/18at 08:48; Start 04/11/18 at 08:00; Stop 04/11/18 at 10:58; Status DC Aspirin (Ecotrin) 325 mg 1X ONCE PO ; Start 04/10/18 at 15:15; Stop 04/10/18 at 15:16; Status UNV Labetalol HCl (Normodyne Iv Push) 20 mg PRN Q2HR PRN IVP HYPERTENSION, SEE COMMENTS; Start 04/10/18 at 15:15; Stop 04/10/18 at 15:36; Status DC Labetalol HCl (Normodyne Iv Push) 10 mg 1X ONCE IVP ; Start 04/10/18 at 15:15 ; Stop 04/10/18 at 15:36; Status DC Multi-Ingred Cream/Lotion/Oil/ Oint (Hydrocerin Cream) 1 gerson PRN Q1HR PRN TP DRY SKIN / SCALING; Start 04/10/18 at 15:30 Enalaprilat (Vasotec Inj) 1.25 mg PRN Q6HRS PRN IVP HYPERTENSION, SEE COMMENTS ; Start 04/10/18 at 15:45; Stop 04/10/18 at 16:37; Status DC Enalaprilat (Vasotec Inj) 1.25 mg PRN Q6HRS PRN IVP HYPERTENSION, SEE COMMENTS Last administered on 04/13/18at 08:08; Start 04/10/18 at 16:30 Atorvastatin Calcium (Lipitor) 10 mg QHS PO ; Start 04/10/18 at 21:00; Stop at 10:58; Status DC Influenza Virus Vaccine (Afluria Trivalent [id number] Syringe) 0.5 ml ONCE ONCE VAX IM Last administered on 04/10/18at 21:26; Start 04/10/18 at 18:30; Stop 04/10/18 at 18:34; Status DC Amino Acids/ Glycerin/ Electrolytes 1,000 ml @ 80 mls/hr [id number] IV Last administered on 04/15/18at 06:09; Start 04/11/18 at 09:00 Aspirin (Aspirin) 300 mg DAILY OK Last administered on 04/13/18at 08:08; Start 04/11/18 at 12:00; Stop 04/13/18 at 12:26; Status DC Atorvastatin Calcium (Lipitor) 40 mg QHS PO Last administered on 04/14/18at 20: 54; Start 04/11/18 at 21:00 Heparin Sodium (Porcine) 5000 unit/Ringer's Solution 505 ml @ 505 mls/hr 1X ONCE IRR ; Start 04/12/18 at 06:00; Stop 04/12/18 at 06:59; Status Cancel Lidocaine HCl 48 ml/Sodium Bicarbonate 12 meq/Miscellaneous 60 ml @ 60 mls/hr 1X ONCE ID ; Start 04/12/18 at 06:00; Stop 04/12/18 at 06:59; Status Cancel Lorazepam (Ativan) 1 mg PRN Q4HRS PRN IV ANXIETY / AGITATION Last administered on 04/12/18at 03:43; Start 04/11/18 at 13:15; Stop 04/12/18 at 12:41; Status DC Haloperidol Lactate (Haldol Inj) 1 mg 1X ONCE IM ; Start 04/12/18 at 04:30; Stop 04/12/18 at 04:30; Status DC Haloperidol Lactate (Haldol Inj) 1 mg 1X ONCE IVP ; Start 04/12/18 at 04:30; Stop 04/12/18 at 04:31; Status DC Barium Sulfate (Varibar Thin Liquid Apple) 148 gm 1X ONCE PO ; Start 04/12/18 at 10:45; Stop 04/12/18 at 10:46; Status DC Lorazepam (Ativan) 2 mg PRN Q4HRS PRN IV ANXIETY / AGITATION; Start 04/12/18 at 12:45; Stop 04/13/18 at 12:26; Status DC Haloperidol Lactate (Haldol Inj) 5 mg PRN Q6HRS PRN IVP AGITATION 2nd choice; Start 04/12/18 at 12:45 Lorazepam (Ativan) 1 mg PRN Q4HRS PRN IV ANXIETY / AGITATION; Start 04/13/18 at 12:30 Morphine Sulfate (Morphine Sulfate) 1 mg PRN Q2HR PRN IV PAIN Last administered on 04/15/18at 01:28; Start 04/13/18 at 12:30 Aspirin (Ecotrin) 325 mg DAILYWBKFT PO Last administered on 04/15/18at 08:00; Start 04/14/18 at 08:00 Bisacodyl (Dulcolax Supp) 10 mg 1X ONCE OK Last administered on 04/14/18at 15: 30; Start 04/14/18 at 15:30; Stop 04/14/18 at 15:35; Status DC Active Scripts Active Ativan (Lorazepam) 1 Mg Tablet 1 Mg PO TID Aspirin Ec (Aspirin) 325 Mg Tablet.dr 325 Mg PO DAILYWBKFT Atorvastatin Calcium 40 Mg Tablet 40 Mg PO QHS Vitals/I & O Vital Sign - Last 24 Hours 04/14/18 04/14/18 04/14/18 04/14/18 15:19 19:30 20:00 23:30 Temp 98.2 97.9 98.2 98.2 97.9 98.2 Pulse 90 79 86 Resp 18 20 20 B/P (MAP) 158/75 (102) 167/73 (104) 167/69 (101) Pulse Ox 100 95 96 O2 Delivery Room Air Room Air Room Air Room Air 04/15/18 04/15/18 04/15/18 04/15/18 01:28 01:58 03:50 07:37 Temp 98.0 98.9 98.0 98.9 Pulse 70 74 Resp 20 20 B/P (MAP) 136/58 (84) 150/79 (102) Pulse Ox 96 98 O2 Delivery Room Air Room Air Room Air Room Air 04/15/18 04/15/18 04/15/18 08:00 09:35 11:06 Temp 98.9 98.9 Pulse 67 Resp 20 B/P (MAP) 139/78 (98) Pulse Ox 97 O2 Delivery Room Air Room Air Room Air Intake and Output 04/14/18 04/14/18 04/15/18 15:00 23:00 07:00 Intake Total 240 ml 320 ml 50 ml Balance 240 ml 320 ml [address] yesterday:: The topogram is normal. Axial images of the head were obtained without contrast. Atrophy and chronic ischemic changes white matter are present. There is progression of low-attenuation involving the right frontal deep white matter superiorly. This low-attenuation extends to the right basal ganglia more inferiorly. Old right caudate head lacunar infarct is present. No intracranial hemorrhage, midline shift, or significant mass effect. Impression: Infarct involving the right high frontal deep white matter and adjacent basal ganglia is more evident in the interval as compared to 04/10/2018 CT head without contrast. No intracranial hemorrhage or significant mass effect. JOSE CRUZ LATHAM MD Apr 15, 2018 12:17
== END 2018-04-15 14:15 | DRG 64 ==
LOC: ER 12:35 → 6 SOUTH 14:51
PROVIDERS: ADMIT Internal Medicine; ATTEND Internal Medicine
DX: I63.9 Cerebral infarction, unspecified (principal); G93.41 Metabolic encephalopathy; G81.94 Hemiplegia, unspecified affecting left nondominant side; F03.90 Unspecified dementia, unspecified severity, without behavioral disturbance, psychotic disturbance, mood disturbance, and anxiety; I10 Essential (primary) hypertension; I65.21 Occlusion and stenosis of right carotid artery; R13.19 Other dysphagia; E66.3 Overweight; R26.9 Unspecified abnormalities of gait and mobility; Z68.28 Body mass index [BMI] 28.0-28.9, adult; Z87.891 Personal history of nicotine dependence; Z79.82 Long term (current) use of aspirin; Z86.73 Personal history of transient ischemic attack (TIA), and cerebral infarction without residual deficits; Z82.3 Family history of stroke; Z82.49 Family history of ischemic heart disease and other diseases of the circulatory system
CPT/HCPCS: 99285; C8929; 36415; 70450; 70551; 71045; 74230; 80053; 80061; 80307; 81001; 82962; 83735; 83880; 84443; 84484; 85025; 85610; 85730; 90471; 90756; 93005; 93880; J1650; J2060; J2270; 92526; 92610; 92611; 97110; 97530; 97535; G0479; Q2035

== ENCOUNTER 2018-04-17 12:18 | Inpatient (IN) | payer MEDICARE ==
[~2018-04-17] VITALS: Ht 165.1 cm; Wt 74.8 kg
[~2018-04-17 12:18] MED LIST: ASPI325T11 PO; ATOR40TA59 PO; LORA-434 PO
--- NOTE | 2018-04-17 13:08 | PHYS DOC ---
Past Medical History Past Medical History: CVA Alcohol Use: None Drug Use: None Adult General Chief Complaint Chief Complaint: NEURO SYMPTOMS/DEFICITS HPI HPI Patient is a 77 year old male who presents with worsening left sided weakness. Patient was recently admitted due to a CVA. His reports that since Sunday, 3 days ago, he's had worsening left-sided weakness. Patient was being evaluated today for the possibility of a carotid endarterectomy and was sent from that physician's office to the emergency department. Patient is currently in an out patient rehabilitation facility. History is limited from the patient due to somnolence, and reports that he has not had any sedation medicine for the past several days since arriving at the rehabilitation facility. Patient's denies any cough. And she was not aware of any fever until the temperature was taken in the emergency department. Review of Systems Review of Systems Constitutional: Denies fever or chills [] Eyes: Denies change in visual acuity, redness, or eye pain [] HENT: Denies nasal congestion or sore throat [] Respiratory: Denies cough or shortness of breath [] Cardiovascular: No chest pain or palpitation[] GI: Denies abdominal pain, nausea, vomiting, bloody stools or diarrhea [] : Denies dysuria or hematuria [] Musculoskeletal: Denies back pain or joint pain [] Integument: Denies rash or skin lesions [] Neurologic: See history of present illness[] Endocrine: Denies polyuria or polydipsia [] All other systems were reviewed and found to be within normal limits, except as documented in this note. Current Medications Current Medications Current Medications Medications (Trade) Dose Ordered Sig/Stephan Start Time Stop Time Status Last Admin Dose Admin Sodium Chloride 1,000 ml @ 125 mls/hr 1X ONCE 04/17/18 14:30 04/17/18 22:29 04/17/18 15:58 125 MLS/HR Allergies Allergies Allergies Coded Allergies Type Severity Reaction Last Updated Verified No Known Drug Allergies 04/10/18 No Physical Exam Physical Exam Constitutional: Well developed, well nourished, somnolent, maintaining his airway, non-toxic appearance. [] HENT: Normocephalic, atraumatic, bilateral external ears normal, oropharynx moist, no oral exudates, nose normal. [] Eyes: PERRLA, EOMI, conjunctiva normal, no discharge. [] Neck: Normal range of motion, no tenderness, supple, no stridor. [] Cardiovascular:Heart rate regular rhythm, no murmur [] Lungs & Thorax: Bilateral breath sounds clear to auscultation [] Abdomen: Bowel sounds normal, soft, no tenderness, no masses, no pulsatile masses. [] Skin: Warm, dry, no erythema, no rash. [] Back: No tenderness, no CVA tenderness. [] Extremities: No tenderness, no cyanosis, no clubbing, ROM intact, no edema. [] Neurologic: Somnolent, arousable with verbal stimuli, oriented 3, no motor function in the left upper or lower extremity. [] Psychologic: Not evaluated. [] Current Patient Data Vital Signs Vital Signs Date Time Temp Pulse Resp B/P (MAP) Pulse Ox O2 Delivery O2 Flow Rate FiO2 04/17/18 14:30 82 20 97 04/17/18 12:35 99.1 144/79 (100) Room Air 99.1 Lab Values Laboratory Tests Test 04/17/18 13:00 04/17/18 13:20 Urine Collection Type Unknown Urine Color Ina Urine Clarity Clear Urine pH 5.0 Urine Specific [place] 1.025 Urine Protein Negative mg/dL (NEG-TRACE) Urine Glucose (UA) Negative mg/dL (NEG) Urine Ketones (Stick) Trace mg/dL (NEG) Urine Blood Negative (NEG) Urine Nitrite Negative (NEG) Urine Bilirubin Small (NEG) Urine Urobilinogen Dipstick 1.0 mg/dL (0.2 mg/dL) Urine Leukocyte Esterase Negative (NEG) Urine RBC Occ /HPF (0-2) Urine WBC 1-4 /HPF (0-4) Urine Squamous Epithelial Cells Few /LPF Urine Bacteria 0 /HPF (0-FEW) Urine Hyaline Casts Many /HPF Urine Mucus Marked /LPF White Blood Count 8.4 x10^3/uL (4.0-11.0) Red Blood Count 4.60 x10^6/uL (4.30-5.70) Hemoglobin 15.2 g/dL (13.0-17.5) Hematocrit 44.3 % (39.0-53.0) Mean Corpuscular Volume 96 fL (79-100) Mean Corpuscular Hemoglobin 33 pg (25-35) Mean Corpuscular Hemoglobin Concent 34 g/dL (31-37) Red Cell Distribution Width 12.8 % (11.5-14.5) Platelet Count 257 x10^3/uL (140-400) Neutrophils (%) (Auto) 78 % (31-73) H Lymphocytes (%) (Auto) 13 % (24-48) L Monocytes (%) (Auto) 8 % (0-9) Eosinophils (%) (Auto) 1 % (0-3) Basophils (%) (Auto) 0 % (0-3) Neutrophils # (Auto) 6.5 x10^3uL (1.8-7.7) Lymphocytes # (Auto) 1.1 x10^3/uL (1.0-4.8) Monocytes # (Auto) 0.6 x10^3/uL (0.0-1.1) Eosinophils # (Auto) 0.1 x10^3/uL (0.0-0.7) Basophils # (Auto) 0.0 x10^3/uL (0.0-0.2) Prothrombin Time 13.6 SEC (11.7-14.0) Prothrombin Time INR 1.1 (0.8-1.1) PTT 29 SEC (24-38) Sodium Level 140 mmol/L (136-145) Potassium Level 4.3 mmol/L (3.5-5.1) Chloride Level 102 mmol/L (98-107) Carbon Dioxide Level 27 mmol/L (21-32) Anion Gap 11 (6-14) Blood Urea Nitrogen 33 mg/dL (8-26) H Creatinine 1.0 mg/dL (0.7-1.3) Estimated GFR (Cockcroft-Gault) 87.7 BUN/Creatinine Ratio 33 (6-20) H Glucose Level 119 mg/dL (70-99) H Calcium Level 10.0 mg/dL (8.5-10.1) Magnesium Level 2.3 mg/dL (1.8-2.4) Total Bilirubin 0.9 mg/dL (0.2-1.0) Aspartate Amino Transferase (AST) 23 U/L (15-37) Alanine Aminotransferase (ALT) 27 U/L (16-63) Alkaline Phosphatase 81 U/L (46-116) Ammonia 12 mcmol/L (11-34) Troponin I Quantitative < 0.017 ng/mL (0.000-0.055) Total Protein 8.0 g/dL (6.4-8.2) Albumin 3.8 g/dL (3.4-5.0) Albumin/Globulin Ratio 0.9 (1.0-1.7) L Laboratory Tests 04/17/18 13:20 Laboratory Tests 04/17/18 13:20 EKG EKG [] Radiology/Procedures Radiology/Procedures [] Course & Med Decision Making Course & Med Decision Making Pertinent Labs and Imaging studies reviewed. (See chart for details) [] Dragon Disclaimer Dragon Disclaimer This electronic medical record was generated, in whole or in part, using a voice recognition dictation system. Departure Departure Impression: Primary Impression: Stroke Disposition: ADMITTED INPATIENT Admitting Physician: Xie. Almeida Condition: STABLE Referrals: ULISSES NOWAK MD (PCP) Problem Qualifiers Primary Impression: Stroke CVA mechanism: unspecified Qualified Codes: I63.9 - Cerebral infarction, unspecified DEBORAH COHEN DO Apr 17, 2018 13:08
[2018-04-17 13:20] LABS: BILIRUBIN,URINE SMALL (NEG); CLARITY,URINE CLEAR; COLOR,URINE AMBER; NITRITE,URINE NEGATIVE (NEG); PROTEIN,URINE NEGATIVE (NEG-TRACE)
--- NOTE | 2018-04-17 13:26 | RAD ---
Portable chest, 04/17/2018: HISTORY: Altered mental status, fever Comparison is made to a study from 04/10/2018. The heart is at the upper limits of normal in size. There is calcific plaquing the aorta. The pulmonary vascularity is normal. No pulmonary infiltrate is seen. There is no evidence of pleural fluid. Contrast material in the colon is apparently secondary to a recent video dysphagia study. IMPRESSION: No acute cardiopulmonary abnormality is detected. Electronically signed by: Bright Silverio MD (04/17/2018 1:22 PM) [facility]
[2018-04-17 13:31] LABS: HYALINE CASTS, URINE MANY /HPF; SQUAMOUS EPITHELIAL CELL,UR FEW /LPF
[2018-04-17 13:32] LABS: BACTERIA,URINE 0 /HPF (0-FEW); RBC,URINE OCC /HPF (0-2)
[2018-04-17 13:39] LABS: BASO % 0 % (0-3); EOS # 0.1 x10^3/uL (0.0-0.7); EOS % 1 % (0-3); HEMATOCRIT 44.3 % (39.0-53.0); HEMOGLOBIN 15.2 g/dL (13.0-17.5); LYMPH # 1.1 x10^3/uL (1.0-4.8); LYMPH % 13 % (24-48); MEAN CORPUSCULAR HEMOGLOBIN 33 pg (25-35); MEAN CORPUSCULAR HGB CONC 34 g/dL (31-37); MEAN CORPUSCULAR VOLUME 96 fL (79-100); MONO # 0.6 x10^3/uL (0.0-1.1); MONO % 8 % (0-9); NEUT # 6.5 x10^3uL (1.8-7.7); NEUT % 78 % (31-73); PLATELET COUNT 257 x10^3/uL (140-400); RED CELL DISTRIBUTION WIDTH 12.8 % (11.5-14.5); WHITE BLOOD COUNT 8.4 x10^3/uL (4.0-11.0)
[2018-04-17 13:48] LABS: GFR 87.7; POTASSIUM 4.3 mmol/L (3.5-5.1)
[2018-04-17 13:49] LABS: PROTHROMBIN TIME PATIENT 13.6 SEC (11.7-14.0)
[2018-04-17 13:53] LABS: ALBUMIN 3.8 g/dL (3.4-5.0); ALBUMIN/GLOBULIN RATIO 0.9 (1.0-1.7); MAGNESIUM 2.3 mg/dL (1.8-2.4); TOTAL BILIRUBIN 0.9 mg/dL (0.2-1.0)
--- NOTE | 2018-04-17 13:55 | EKG ---
[facility] [address] [place] [address] Test Date: 2018-04-17 Test Time: 12:50:44 Pat Name: LOGAN GARCIA Department: Room: Gender: M [employer] Floorperson: : 1940 Requested By: DEBORAH COHEN Order Number: [id number] Reading MD: Tyrone Chahal Measurements Intervals Bennett Rate: 86 P: 58 NE: 166 QRS: 13 QRSD: 88 T: 67 QT: 344 QTc: 414 Interpretive Statements SINUS RHYTHM LEFT ATRIAL ABNORMALITY NON SPECIFIC T ABNORMALITY ANTERIOR ST ELEVATION ABNORMAL ECG Electronically Signed On 04-22-2018 12:34:17 [employer] by Tyrone Chahal
[2018-04-17] MEDS ORDERED: IV NORMAL SALINE 1000ML BAG 1,000 ML IV ONE ×2 (14:30→17:00)
--- NOTE | 2018-04-17 14:35 | RAD ---
CT HEAD WO CONTRAST Indication: LEFT SIDE WEAKNESS, AMS, S/P CVA X1WEEK, PRIORS SENT Exposure: One or more of the following individualized dose reduction techniques were utilized for this examination: 1. Automated exposure control 2. Adjustment of the mA and/or kV according to patient size 3. Use of iterative reconstruction technique. Comparison: April 14, 2018 Contrast: None FINDINGS: Progression of hypoattenuation in the right frontal and temporal region, with lesser involvement of the right parietal region. This extends into the deep white matter and basal ganglia. This is compatible with further evolution of cerebral infarction. No evidence of acute intracranial hemorrhage or abnormal extra-axial fluid collection. No midline shift. The partially visualized sinuses are clear. Sclerotic change of the mastoids is again identified. IMPRESSION: Progression of low-attenuation associated with right cerebral infarction, now extensively involving the right periventricular white matter in the frontal, temporal and parietal regions. Electronically signed by: Dominic Wright MD (04/17/2018 2:32 PM) [facility]
--- NOTE | 2018-04-17 16:38 | PDOC1 ---
History and Physical Date of Admission Date of Admission 04/17/18 Identification/Chief Complaint Chief Complaint worse stroke symptoms Source Source: Caregiver, Chart review History of Present Illness History of Present Illness Patient is a 77 year old male who presents with worsening left sided weakness. Pt is not communicatable. He said he is at home. at bedside contributes the history. Pt was dced to [facility] on Sunday, with asa, lipitor, diagnosed with rt side stroke with left side weakness. said pt was doing worse since Sunday, but still was dced. He went to see dr. Chua as planed for rt carotid stenosis 70-99% today, who think he is doing worse compared to Sunday and asked them to come back to hosp. said he was able to move left side a little bit, but not since Sunday. ct Today in ER showed worsening rt stroke. on honey thickened liquid diet. Past Medical History Cardiovascular: No pertinent hx Pulmonary: No pertinent hx GI: No pertinent hx Heme/Onc: No pertinent hx Hepatobiliary: No pertinent hx Psych: No pertinent hx Rheumatologic: No pertinent hx Infectious disease: No pertinent hx Renal/: No pertinent hx Endocrine: No pertinent hx Past Surgical History Past Surgical History: Other Family History Family History: Hypertension, Stroke Social History Smoke: No ALCOHOL: none Drugs: None Current Medications Current Medications Current Medications Medications (Trade) Dose Ordered Sig/Stephan Start Time Stop Time Status Last Admin Dose Admin Sodium Chloride 1,000 ml @ 125 mls/hr 1X ONCE 04/17/18 14:30 04/17/18 22:29 04/17/18 15:58 125 MLS/HR Allergies Allergies Allergies Coded Allergies Type Severity Reaction Last Updated Verified No Known Drug Allergies 04/10/18 No ROS Review of System CONSTITUTIONAL: No fever or chills EYES: No recent changes SKIN: No rash or itching CARDIOVASCULAR: No chest pain, syncope, palpitations, or edema RESPIRATORY: No SOB or cough GASTROINTESTINAL: No nausea, vomiting or abdominal pain NEUROLOGICAL: No headaches or weakness ENDOCRINE: No cold or heat intolerance GENITOURINARY: No urgency or frequency of urination MUSCULOSKELETAL: No back pain or joint pain LYMPHATICS: No enlarged lymph nodes PSYCHIATRIC: No anxiety or depression Physical Exam Physical Exam GEN.: No apparent distress. Alert and oriented x0. HEENT: Head is normocephalic, atraumatic NECK: Supple. LUNGS: Clear to auscultation. HEART: RRR, S1, S2 present. Peripheral pulses intact ABDOMEN: Soft, nontender. Positive bowel sounds. EXTREMITIES: Without any cyanosis. left side paralysed. NEUROLOGIC: Normal speech, normal tone PSYCHIATRIC: Normal affect, normal mood. SKIN: No ulcerations Vitals Vitals Vital Signs Date Time Temp Pulse Resp B/P (MAP) Pulse Ox O2 Delivery O2 Flow Rate FiO2 04/17/18 16:03 94 20 96 04/17/18 12:35 99.1 144/79 (100) Room Air 99.1 Labs Labs Laboratory Tests Test 04/17/18 13:00 04/17/18 13:20 Urine Collection Type Unknown Urine Color Ina Urine Clarity Clear Urine pH 5.0 Urine Specific [place] 1.025 Urine Protein Negative mg/dL (NEG-TRACE) Urine Glucose (UA) Negative mg/dL (NEG) Urine Ketones (Stick) Trace mg/dL (NEG) Urine Blood Negative (NEG) Urine Nitrite Negative (NEG) Urine Bilirubin Small (NEG) Urine Urobilinogen Dipstick 1.0 mg/dL (0.2 mg/dL) Urine Leukocyte Esterase Negative (NEG) Urine RBC Occ /HPF (0-2) Urine WBC 1-4 /HPF (0-4) Urine Squamous Epithelial Cells Few /LPF Urine Bacteria 0 /HPF (0-FEW) Urine Hyaline Casts Many /HPF Urine Mucus Marked /LPF White Blood Count 8.4 x10^3/uL (4.0-11.0) Red Blood Count 4.60 x10^6/uL (4.30-5.70) Hemoglobin 15.2 g/dL (13.0-17.5) Hematocrit 44.3 % (39.0-53.0) Mean Corpuscular Volume 96 fL (79-100) Mean Corpuscular Hemoglobin 33 pg (25-35) Mean Corpuscular Hemoglobin Concent 34 g/dL (31-37) Red Cell Distribution Width 12.8 % (11.5-14.5) Platelet Count 257 x10^3/uL (140-400) Neutrophils (%) (Auto) 78 % (31-73) Lymphocytes (%) (Auto) 13 % (24-48) Monocytes (%) (Auto) 8 % (0-9) Eosinophils (%) (Auto) 1 % (0-3) Basophils (%) (Auto) 0 % (0-3) Neutrophils # (Auto) 6.5 x10^3uL (1.8-7.7) Lymphocytes # (Auto) 1.1 x10^3/uL (1.0-4.8) Monocytes # (Auto) 0.6 x10^3/uL (0.0-1.1) Eosinophils # (Auto) 0.1 x10^3/uL (0.0-0.7) Basophils # (Auto) 0.0 x10^3/uL (0.0-0.2) Prothrombin Time 13.6 SEC (11.7-14.0) Prothromb Time International Ratio 1.1 (0.8-1.1) Activated Partial Thromboplast Time 29 SEC (24-38) Sodium Level 140 mmol/L (136-145) Potassium Level 4.3 mmol/L (3.5-5.1) Chloride Level 102 mmol/L (98-107) Carbon Dioxide Level 27 mmol/L (21-32) Anion Gap 11 (6-14) Blood Urea Nitrogen 33 mg/dL (8-26) Creatinine 1.0 mg/dL (0.7-1.3) Estimated GFR (Cockcroft-Gault) 87.7 BUN/Creatinine Ratio 33 (6-20) Glucose Level 119 mg/dL (70-99) Calcium Level 10.0 mg/dL (8.5-10.1) Magnesium Level 2.3 mg/dL (1.8-2.4) Total Bilirubin 0.9 mg/dL (0.2-1.0) Aspartate Amino Transf (AST/SGOT) 23 U/L (15-37) Alanine Aminotransferase (ALT/SGPT) 27 U/L (16-63) Alkaline Phosphatase 81 U/L (46-116) Ammonia 12 mcmol/L (11-34) Troponin I Quantitative < 0.017 ng/mL (0.000-0.055) Total Protein 8.0 g/dL (6.4-8.2) Albumin 3.8 g/dL (3.4-5.0) Albumin/Globulin Ratio 0.9 (1.0-1.7) Laboratory Tests Test 04/17/18 13:00 04/17/18 13:20 Urine Collection Type Unknown Urine Color Ina Urine Clarity Clear Urine pH 5.0 Urine Specific [place] 1.025 Urine Protein Negative mg/dL (NEG-TRACE) Urine Glucose (UA) Negative mg/dL (NEG) Urine Ketones (Stick) Trace mg/dL (NEG) Urine Blood Negative (NEG) Urine Nitrite Negative (NEG) Urine Bilirubin Small (NEG) Urine Urobilinogen Dipstick 1.0 mg/dL (0.2 mg/dL) Urine Leukocyte Esterase Negative (NEG) Urine RBC Occ /HPF (0-2) Urine WBC 1-4 /HPF (0-4) Urine Squamous Epithelial Cells Few /LPF Urine Bacteria 0 /HPF (0-FEW) Urine Hyaline Casts Many /HPF Urine Mucus Marked /LPF White Blood Count 8.4 x10^3/uL (4.0-11.0) Red Blood Count 4.60 x10^6/uL (4.30-5.70) Hemoglobin 15.2 g/dL (13.0-17.5) Hematocrit 44.3 % (39.0-53.0) Mean Corpuscular Volume 96 fL (79-100) Mean Corpuscular Hemoglobin 33 pg (25-35) Mean Corpuscular Hemoglobin Concent 34 g/dL (31-37) Red Cell Distribution Width 12.8 % (11.5-14.5) Platelet Count 257 x10^3/uL (140-400) Neutrophils (%) (Auto) 78 % (31-73) Lymphocytes (%) (Auto) 13 % (24-48) Monocytes (%) (Auto) 8 % (0-9) Eosinophils (%) (Auto) 1 % (0-3) Basophils (%) (Auto) 0 % (0-3) Neutrophils # (Auto) 6.5 x10^3uL (1.8-7.7) Lymphocytes # (Auto) 1.1 x10^3/uL (1.0-4.8) Monocytes # (Auto) 0.6 x10^3/uL (0.0-1.1) Eosinophils # (Auto) 0.1 x10^3/uL (0.0-0.7) Basophils # (Auto) 0.0 x10^3/uL (0.0-0.2) Prothrombin Time 13.6 SEC (11.7-14.0) Prothromb Time International Ratio 1.1 (0.8-1.1) Activated Partial Thromboplast Time 29 SEC (24-38) Sodium Level 140 mmol/L (136-145) Potassium Level 4.3 mmol/L (3.5-5.1) Chloride Level 102 mmol/L (98-107) Carbon Dioxide Level 27 mmol/L (21-32) Anion Gap 11 (6-14) Blood Urea Nitrogen 33 mg/dL (8-26) Creatinine 1.0 mg/dL (0.7-1.3) Estimated GFR (Cockcroft-Gault) 87.7 BUN/Creatinine Ratio 33 (6-20) Glucose Level 119 mg/dL (70-99) Calcium Level 10.0 mg/dL (8.5-10.1) Magnesium Level 2.3 mg/dL (1.8-2.4) Total Bilirubin 0.9 mg/dL (0.2-1.0) Aspartate Amino Transf (AST/SGOT) 23 U/L (15-37) Alanine Aminotransferase (ALT/SGPT) 27 U/L (16-63) Alkaline Phosphatase 81 U/L (46-116) Ammonia 12 mcmol/L (11-34) Troponin I Quantitative < 0.017 ng/mL (0.000-0.055) Total Protein 8.0 g/dL (6.4-8.2) Albumin 3.8 g/dL (3.4-5.0) Albumin/Globulin Ratio 0.9 (1.0-1.7) VTE Prophylaxis Ordered VTE Prophylaxis Devices: Yes VTE Pharmacological Prophylaxi: Yes Assessment/Plan Assessment/Plan worsening recent acute ischemia/infarction extensively involving the right periventricular white matter in the frontal, temporal and parietal regions .Old right basal ganglia infarct on CT Met enceph sec to stroke and possibly cognitive delay/vs undiagnosed dementia Accelerated hypertension POA Never smoker, never drinker Dry skin Dysphagia, neurogenic on honey thicken liquid HIgh grade stenosis, Rt ICA bifurcation 70-99% plan: neuro consult npo, swallow eval if can take po, resume asa, lipitor add plavix for now ivf gentle PTOT dvt ppx vascular consult to see if wanna do endarterectomy SANDIP SAINI MD Apr 17, 2018 16:38
[2018-04-17] MEDS ORDERED: MORPHINE SULFATE 2 MG/ML VIAL. IV PRN (16:45)
[2018-04-17] MEDS ORDERED: CLOPIDOGREL BISULFATE 75 MG TABLET PO ONE (16:45)
[2018-04-17] MEDS ORDERED: ONDANSETRON PF 4 MG/2 ML VIAL. IV PRN (16:45)
[2018-04-17] MEDS ORDERED: LABETALOL 20 MG/4 ML DISP.SYRIN. IVP PRN (16:45)
[2018-04-17] MEDS ORDERED: traMADol 50 MG TABLET PO PRN (16:45)
[2018-04-17] MEDS ORDERED: ACETAMINOPHEN 325 MG TABLET. PO PRN (16:45)
[2018-04-17] MEDS ORDERED: DOCUSATE SODIUM 100 MG CAPSULE. PO PRN (16:45)
[2018-04-17 20:00] VITALS: BP 165/60
[2018-04-17] MEDS: ATORVASTATIN CALCIUM 40 MG TABLET. PO SCH (20:48)
[2018-04-17] MEDS ORDERED: ASPIRIN 300 MG SUPP.RECT PR SCH (21:00)
[2018-04-17 23:51] VITALS: BP 168/65
[2018-04-18 03:21] VITALS: BP 153/75
[2018-04-18 07:00] VITALS: BP 140/69
[2018-04-18] MEDS ORDERED: ASPIRIN ENTERIC COATED 325 MG TABLET.DR. PO SCH (08:00)
[2018-04-18 08:57] LABS: BASO # 0.1 x10^3/uL (0.0-0.2); BASO % 1 % (0-3); EOS # 0.3 x10^3/uL (0.0-0.7); EOS % 3 % (0-3); HEMOGLOBIN 14.5 g/dL (13.0-17.5); LYMPH # 1.9 x10^3/uL (1.0-4.8); LYMPH % 23 % (24-48); MEAN CORPUSCULAR HEMOGLOBIN 33 pg (25-35); MEAN CORPUSCULAR HGB CONC 34 g/dL (31-37); MEAN CORPUSCULAR VOLUME 97 fL (79-100); MONO # 0.8 x10^3/uL (0.0-1.1); MONO % 10 % (0-9); NEUT # 5.3 x10^3uL (1.8-7.7); NEUT % 63 % (31-73); PLATELET COUNT 241 x10^3/uL (140-400); RED BLOOD COUNT 4.44 x10^6/uL (4.30-5.70); RED CELL DISTRIBUTION WIDTH 12.8 % (11.5-14.5); WHITE BLOOD COUNT 8.4 x10^3/uL (4.0-11.0)
[2018-04-18] MEDS ORDERED: IOHEXOL 300 MG/ML 100ML VIAL. IV ONE (09:00)
[2018-04-18] MEDS ORDERED: ENOXAPARIN 40 MG/0.4 ML SYRINGE. SQ SCH (09:00)
[2018-04-18 09:25] LABS: CALCIUM 9.3 mg/dL (8.5-10.1); CREATININE 0.9 mg/dL (0.7-1.3); POTASSIUM 4.1 mmol/L (3.5-5.1)
--- NOTE | 2018-04-18 10:29 | PDOC ---
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 endarterectomy Vitals Vitals Vital Signs Date Time Temp Pulse Resp B/P (MAP) Pulse Ox O2 Delivery O2 Flow Rate FiO2 04/18/18 07:00 99.3 79 18 140/69 (92) 98 Nasal Cannula 2.0 99.3 Physical Exam Physical Exam Physical Exam GEN.: No apparent distress. HEENT: Head is normocephalic, atraumatic NECK: Supple. LUNGS: Clear to auscultation. HEART: RRR, S1, S2 present. Peripheral pulses intact ABDOMEN: Soft, nontender. Positive bowel sounds. EXTREMITIES: no cyanosis. left side paralysis. General: Cooperative Abdomen: Soft Extremities: No cyanosis Labs LABS Laboratory Tests Test 04/17/18 13:00 04/17/18 13:20 04/18/18 08:30 Urine Collection Type Unknown Urine Color Ina Urine Clarity Clear Urine pH 5.0 Urine Specific [place] 1.025 Urine Protein Negative mg/dL (NEG-TRACE) Urine Glucose (UA) Negative mg/dL (NEG) Urine Ketones (Stick) Trace mg/dL (NEG) Urine Blood Negative (NEG) Urine Nitrite Negative (NEG) Urine Bilirubin Small (NEG) Urine Urobilinogen Dipstick 1.0 mg/dL (0.2 mg/dL) Urine Leukocyte Esterase Negative (NEG) Urine RBC Occ /HPF (0-2) Urine WBC 1-4 /HPF (0-4) Urine Squamous Epithelial Cells Few /LPF Urine Bacteria 0 /HPF (0-FEW) Urine Hyaline Casts Many /HPF Urine Mucus Marked /LPF White Blood Count 8.4 x10^3/uL (4.0-11.0) 8.4 x10^3/uL (4.0-11.0) Red Blood Count 4.60 x10^6/uL (4.30-5.70) 4.44 x10^6/uL (4.30-5.70) Hemoglobin 15.2 g/dL (13.0-17.5) 14.5 g/dL (13.0-17.5) Hematocrit 44.3 % (39.0-53.0) 43.0 % (39.0-53.0) Mean Corpuscular Volume 96 fL (79-100) 97 fL (79-100) Mean Corpuscular Hemoglobin 33 pg (25-35) 33 pg (25-35) Mean Corpuscular Hemoglobin Concent 34 g/dL (31-37) 34 g/dL (31-37) Red Cell Distribution Width 12.8 % (11.5-14.5) 12.8 % (11.5-14.5) Platelet Count 257 x10^3/uL (140-400) 241 x10^3/uL (140-400) Neutrophils (%) (Auto) 78 % (31-73) 63 % (31-73) Lymphocytes (%) (Auto) 13 % (24-48) 23 % (24-48) Monocytes (%) (Auto) 8 % (0-9) 10 % (0-9) Eosinophils (%) (Auto) 1 % (0-3) 3 % (0-3) Basophils (%) (Auto) 0 % (0-3) 1 % (0-3) Neutrophils # (Auto) 6.5 x10^3uL (1.8-7.7) 5.3 x10^3uL (1.8-7.7) Lymphocytes # (Auto) 1.1 x10^3/uL (1.0-4.8) 1.9 x10^3/uL (1.0-4.8) Monocytes # (Auto) 0.6 x10^3/uL (0.0-1.1) 0.8 x10^3/uL (0.0-1.1) Eosinophils # (Auto) 0.1 x10^3/uL (0.0-0.7) 0.3 x10^3/uL (0.0-0.7) Basophils # (Auto) 0.0 x10^3/uL (0.0-0.2) 0.1 x10^3/uL (0.0-0.2) Prothrombin Time 13.6 SEC (11.7-14.0) Prothromb Time International Ratio 1.1 (0.8-1.1) Activated Partial Thromboplast Time 29 SEC (24-38) Sodium Level 140 mmol/L (136-145) 144 mmol/L (136-145) Potassium Level 4.3 mmol/L (3.5-5.1) 4.1 mmol/L (3.5-5.1) Chloride Level 102 mmol/L (98-107) 107 mmol/L (98-107) Carbon Dioxide Level 27 mmol/L (21-32) 27 mmol/L (21-32) Anion Gap 11 (6-14) 10 (6-14) Blood Urea Nitrogen 33 mg/dL (8-26) 31 mg/dL (8-26) Creatinine 1.0 mg/dL (0.7-1.3) 0.9 mg/dL (0.7-1.3) Estimated GFR (Cockcroft-Gault) 87.7 99.0 BUN/Creatinine Ratio 33 (6-20) Glucose Level 119 mg/dL (70-99) 99 mg/dL (70-99) Calcium Level 10.0 mg/dL (8.5-10.1) 9.3 mg/dL (8.5-10.1) Magnesium Level 2.3 mg/dL (1.8-2.4) Total Bilirubin 0.9 mg/dL (0.2-1.0) Aspartate Amino Transf (AST/SGOT) 23 U/L (15-37) Alanine Aminotransferase (ALT/SGPT) 27 U/L (16-63) Alkaline Phosphatase 81 U/L (46-116) Ammonia 12 mcmol/L (11-34) Troponin I Quantitative < 0.017 ng/mL (0.000-0.055) Total Protein 8.0 g/dL (6.4-8.2) Albumin 3.8 g/dL (3.4-5.0) Albumin/Globulin Ratio 0.9 (1.0-1.7) Assessment and Plan Assessmemt and Plan Problems Medical Problems: (1) Stroke Status: Acute Comment Review of Relevant I have reviewed the following items patsy (where applicable) has been applied. Labs Laboratory Tests Test 04/17/18 13:00 04/17/18 13:20 04/18/18 08:30 Urine Collection Type Unknown Urine Color Ina Urine Clarity Clear Urine pH 5.0 Urine Specific [place] 1.025 Urine Protein Negative mg/dL (NEG-TRACE) Urine Glucose (UA) Negative mg/dL (NEG) Urine Ketones (Stick) Trace mg/dL (NEG) Urine Blood Negative (NEG) Urine Nitrite Negative (NEG) Urine Bilirubin Small (NEG) Urine Urobilinogen Dipstick 1.0 mg/dL (0.2 mg/dL) Urine Leukocyte Esterase Negative (NEG) Urine RBC Occ /HPF (0-2) Urine WBC 1-4 /HPF (0-4) Urine Squamous Epithelial Cells Few /LPF Urine Bacteria 0 /HPF (0-FEW) Urine Hyaline Casts Many /HPF Urine Mucus Marked /LPF White Blood Count 8.4 x10^3/uL (4.0-11.0) 8.4 x10^3/uL (4.0-11.0) Red Blood Count 4.60 x10^6/uL (4.30-5.70) 4.44 x10^6/uL (4.30-5.70) Hemoglobin 15.2 g/dL (13.0-17.5) 14.5 g/dL (13.0-17.5) Hematocrit 44.3 % (39.0-53.0) 43.0 % (39.0-53.0) Mean Corpuscular Volume 96 fL (79-100) 97 fL (79-100) Mean Corpuscular Hemoglobin 33 pg (25-35) 33 pg (25-35) Mean Corpuscular Hemoglobin Concent 34 g/dL (31-37) 34 g/dL (31-37) Red Cell Distribution Width 12.8 % (11.5-14.5) 12.8 % (11.5-14.5) Platelet Count 257 x10^3/uL (140-400) 241 x10^3/uL (140-400) Neutrophils (%) (Auto) 78 % (31-73) 63 % (31-73) Lymphocytes (%) (Auto) 13 % (24-48) 23 % (24-48) Monocytes (%) (Auto) 8 % (0-9) 10 % (0-9) Eosinophils (%) (Auto) 1 % (0-3) 3 % (0-3) Basophils (%) (Auto) 0 % (0-3) 1 % (0-3) Neutrophils # (Auto) 6.5 x10^3uL (1.8-7.7) 5.3 x10^3uL (1.8-7.7) Lymphocytes # (Auto) 1.1 x10^3/uL (1.0-4.8) 1.9 x10^3/uL (1.0-4.8) Monocytes # (Auto) 0.6 x10^3/uL (0.0-1.1) 0.8 x10^3/uL (0.0-1.1) Eosinophils # (Auto) 0.1 x10^3/uL (0.0-0.7) 0.3 x10^3/uL (0.0-0.7) Basophils # (Auto) 0.0 x10^3/uL (0.0-0.2) 0.1 x10^3/uL (0.0-0.2) Prothrombin Time 13.6 SEC (11.7-14.0) Prothromb Time International Ratio 1.1 (0.8-1.1) Activated Partial Thromboplast Time 29 SEC (24-38) Sodium Level 140 mmol/L (136-145) 144 mmol/L (136-145) Potassium Level 4.3 mmol/L (3.5-5.1) 4.1 mmol/L (3.5-5.1) Chloride Level 102 mmol/L (98-107) 107 mmol/L (98-107) Carbon Dioxide Level 27 mmol/L (21-32) 27 mmol/L (21-32) Anion Gap 11 (6-14) 10 (6-14) Blood Urea Nitrogen 33 mg/dL (8-26) 31 mg/dL (8-26) Creatinine 1.0 mg/dL (0.7-1.3) 0.9 mg/dL (0.7-1.3) Estimated GFR (Cockcroft-Gault) 87.7 99.0 BUN/Creatinine Ratio 33 (6-20) Glucose Level 119 mg/dL (70-99) 99 mg/dL (70-99) Calcium Level 10.0 mg/dL (8.5-10.1) 9.3 mg/dL (8.5-10.1) Magnesium Level 2.3 mg/dL (1.8-2.4) Total Bilirubin 0.9 mg/dL (0.2-1.0) Aspartate Amino Transf (AST/SGOT) 23 U/L (15-37) Alanine Aminotransferase (ALT/SGPT) 27 U/L (16-63) Alkaline Phosphatase 81 U/L (46-116) Ammonia 12 mcmol/L (11-34) Troponin I Quantitative < 0.017 ng/mL (0.000-0.055) Total Protein 8.0 g/dL (6.4-8.2) Albumin 3.8 g/dL (3.4-5.0) Albumin/Globulin Ratio 0.9 (1.0-1.7) Laboratory Tests Test 04/17/18 13:00 04/17/18 13:20 04/18/18 08:30 Urine Collection Type Unknown Urine Color Ina Urine Clarity Clear Urine pH 5.0 Urine Specific [place] 1.025 Urine Protein Negative mg/dL (NEG-TRACE) Urine Glucose (UA) Negative mg/dL (NEG) Urine Ketones (Stick) Trace mg/dL (NEG) Urine Blood Negative (NEG) Urine Nitrite Negative (NEG) Urine Bilirubin Small (NEG) Urine Urobilinogen Dipstick 1.0 mg/dL (0.2 mg/dL) Urine Leukocyte Esterase Negative (NEG) Urine RBC Occ /HPF (0-2) Urine WBC 1-4 /HPF (0-4) Urine Squamous Epithelial Cells Few /LPF Urine Bacteria 0 /HPF (0-FEW) Urine Hyaline Casts Many /HPF Urine Mucus Marked /LPF White Blood Count 8.4 x10^3/uL (4.0-11.0) 8.4 x10^3/uL (4.0-11.0) Red Blood Count 4.60 x10^6/uL (4.30-5.70) 4.44 x10^6/uL (4.30-5.70) Hemoglobin 15.2 g/dL (13.0-17.5) 14.5 g/dL (13.0-17.5) Hematocrit 44.3 % (39.0-53.0) 43.0 % (39.0-53.0) Mean Corpuscular Volume 96 fL (79-100) 97 fL (79-100) Mean Corpuscular Hemoglobin 33 pg (25-35) 33 pg (25-35) Mean Corpuscular Hemoglobin Concent 34 g/dL (31-37) 34 g/dL (31-37) Red Cell Distribution Width 12.8 % (11.5-14.5) 12.8 % (11.5-14.5) Platelet Count 257 x10^3/uL (140-400) 241 x10^3/uL (140-400) Neutrophils (%) (Auto) 78 % (31-73) 63 % (31-73) Lymphocytes (%) (Auto) 13 % (24-48) 23 % (24-48) Monocytes (%) (Auto) 8 % (0-9) 10 % (0-9) Eosinophils (%) (Auto) 1 % (0-3) 3 % (0-3) Basophils (%) (Auto) 0 % (0-3) 1 % (0-3) Neutrophils # (Auto) 6.5 x10^3uL (1.8-7.7) 5.3 x10^3uL (1.8-7.7) Lymphocytes # (Auto) 1.1 x10^3/uL (1.0-4.8) 1.9 x10^3/uL (1.0-4.8) Monocytes # (Auto) 0.6 x10^3/uL (0.0-1.1) 0.8 x10^3/uL (0.0-1.1) Eosinophils # (Auto) 0.1 x10^3/uL (0.0-0.7) 0.3 x10^3/uL (0.0-0.7) Basophils # (Auto) 0.0 x10^3/uL (0.0-0.2) 0.1 x10^3/uL (0.0-0.2) Prothrombin Time 13.6 SEC (11.7-14.0) Prothromb Time International Ratio 1.1 (0.8-1.1) Activated Partial Thromboplast Time 29 SEC (24-38) Sodium Level 140 mmol/L (136-145) 144 mmol/L (136-145) Potassium Level 4.3 mmol/L (3.5-5.1) 4.1 mmol/L (3.5-5.1) Chloride Level 102 mmol/L (98-107) 107 mmol/L (98-107) Carbon Dioxide Level 27 mmol/L (21-32) 27 mmol/L (21-32) Anion Gap 11 (6-14) 10 (6-14) Blood Urea Nitrogen 33 mg/dL (8-26) 31 mg/dL (8-26) Creatinine 1.0 mg/dL (0.7-1.3) 0.9 mg/dL (0.7-1.3) Estimated GFR (Cockcroft-Gault) 87.7 99.0 BUN/Creatinine Ratio 33 (6-20) Glucose Level 119 mg/dL (70-99) 99 mg/dL (70-99) Calcium Level 10.0 mg/dL (8.5-10.1) 9.3 mg/dL (8.5-10.1) Magnesium Level 2.3 mg/dL (1.8-2.4) Total Bilirubin 0.9 mg/dL (0.2-1.0) Aspartate Amino Transf (AST/SGOT) 23 U/L (15-37) Alanine Aminotransferase (ALT/SGPT) 27 U/L (16-63) Alkaline Phosphatase 81 U/L (46-116) Ammonia 12 mcmol/L (11-34) Troponin I Quantitative < 0.017 ng/mL (0.000-0.055) Total Protein 8.0 g/dL (6.4-8.2) Albumin 3.8 g/dL (3.4-5.0) Albumin/Globulin Ratio 0.9 (1.0-1.7) Medications Current Medications Sodium Chloride 1,000 ml @ 125 mls/hr 1X ONCE IV Last administered on at 15:58; Start 04/17/18 at 14:30; Stop 04/17/18 at 22:29; Status DC Aspirin (Ecotrin) 325 mg DAILYWBKFT PO ; Start 04/18/18 at 08:00; Stop 04/18/18 at 08:00; Status DC Atorvastatin Calcium (Lipitor) 40 mg QHS PO ; Start 04/17/18 at 21:00 Acetaminophen (Tylenol) 650 mg PRN Q6HRS PRN PO FEVER; Start 04/17/18 at 16:45 Ondansetron HCl (Zofran) 4 mg PRN Q6HRS PRN IV NAUSEA/VOMITING; Start at 16:45 Morphine Sulfate (Morphine Sulfate) 2 mg PRN Q2HR PRN IV MODERATE TO SEVERE PAIN; Start 04/17/18 at 16:45 Tramadol HCl (Ultram) 50 mg PRN Q6HRS PRN PO MILD TO MODERATE PAIN; Start at 16:45 Docusate Sodium (Colace) 100 mg PRN DAILY PRN PO CONSTIPATION; Start 04/17/18 at 16:45 Labetalol HCl (Normodyne Iv Push) 20 mg PRN Q2HR PRN IVP HYPERTENSION, SEE COMMENTS; Start 04/17/18 at 16:45 Clopidogrel Bisulfate (Plavix) 300 mg 1X ONCE PO ; Start 04/17/18 at 16:45; Stop 04/17/18 at 16:49; Status DC Sodium Chloride 1,000 ml @ 75 mls/hr 1X ONCE IV Last administered on at 23:05; Start 04/17/18 at 17:00; Stop 04/18/18 at 06:19; Status DC Enoxaparin Sodium (Lovenox 40mg Syringe) 40 mg DAILY SQ ; Start 04/18/18 at 09: 00; Stop 04/18/18 at 09:00; Status DC Aspirin (Aspirin) 300 mg DAILY OR Last administered on 04/17/18at 23:05; Start 04/17/18 at 21:00 Iohexol (Omnipaque 300 Mg/ml) 75 ml 1X ONCE IV ; Start 04/18/18 at 09:00; Stop 04/18/18 at 09:01; Status DC Active Scripts Active Aspirin Ec (Aspirin) 325 Mg Tablet.dr 325 Mg PO DAILYWBKFT Atorvastatin Calcium 40 Mg Tablet 40 Mg PO QHS Vitals/I & O Vital Sign - Last 24 Hours 04/17/18 04/17/18 04/17/18 04/17/18 12:35 13:30 14:30 15:30 Temp 99.1 99.1 Pulse 95 84 82 76 Resp 20 20 20 22 B/P (MAP) 144/79 (100) Pulse Ox 86 96 97 96 O2 Delivery Room Air 04/17/18 04/17/18 04/17/18 04/17/18 16:03 16:30 17:30 18:30 Pulse 94 70 88 92 Resp 20 20 20 20 Pulse Ox 96 99 96 98 04/17/18 04/17/18 04/17/18 04/17/18 19:00 20:00 20:00 23:51 Temp 98.0 98.0 98.0 98.0 Pulse 92 83 85 Resp 20 18 18 B/P (MAP) 165/60 (95) 168/65 (99) Pulse Ox 99 98 98 O2 Delivery Nasal Cannula Room Air Nasal Cannula O2 Flow Rate 2.0 2.0 04/18/18 04/18/18 03:21 07:00 Temp 97.8 99.3 97.8 99.3 Pulse 83 79 Resp 18 18 B/P (MAP) 153/75 (101) 140/69 (92) Pulse Ox 97 98 O2 Delivery Nasal Cannula Nasal Cannula O2 Flow Rate 2.0 2.0 Intake and Output 04/17/18 04/17/18 04/18/18 15:00 23:00 07:00 Intake Total 450 ml Balance 450 ml GANESH ASENCIO MD Apr 18, 2018 10:29
--- NOTE | 2018-04-18 10:33 | PDOC2 ---
CONSULT Date of Consult Date of Consult DATE: 04/18/18 TIME: 10:30 Past Medical History Cardiovascular: No pertinent hx Pulmonary: No pertinent hx GI: No pertinent hx Heme/Onc: No pertinent hx Hepatobiliary: No pertinent hx Psych: No pertinent hx Rheumatologic: No pertinent hx Infectious disease: No pertinent hx Renal/: No pertinent hx Endocrine: No pertinent hx Past Surgical History Past Surgical History: Other Family History Family History: Hypertension, Stroke Social History No ALCOHOL: none Drugs: None Lives: with Family Current Problem List Problem List Problems Medical Problems: (1) Stroke Status: Acute Current Medications Current Medications Current Medications Sodium Chloride 1,000 ml @ 125 mls/hr 1X ONCE IV Last administered on at 15:58; Start 04/17/18 at 14:30; Stop 04/17/18 at 22:29; Status DC Aspirin (Ecotrin) 325 mg DAILYWBKFT PO ; Start 04/18/18 at 08:00; Stop 04/18/18 at 08:00; Status DC Atorvastatin Calcium (Lipitor) 40 mg QHS PO ; Start 04/17/18 at 21:00 Acetaminophen (Tylenol) 650 mg PRN Q6HRS PRN PO FEVER; Start 04/17/18 at 16:45 Ondansetron HCl (Zofran) 4 mg PRN Q6HRS PRN IV NAUSEA/VOMITING; Start at 16:45 Morphine Sulfate (Morphine Sulfate) 2 mg PRN Q2HR PRN IV MODERATE TO SEVERE PAIN; Start 04/17/18 at 16:45 Tramadol HCl (Ultram) 50 mg PRN Q6HRS PRN PO MILD TO MODERATE PAIN; Start at 16:45 Docusate Sodium (Colace) 100 mg PRN DAILY PRN PO CONSTIPATION; Start 04/17/18 at 16:45 Labetalol HCl (Normodyne Iv Push) 20 mg PRN Q2HR PRN IVP HYPERTENSION, SEE COMMENTS; Start 04/17/18 at 16:45 Clopidogrel Bisulfate (Plavix) 300 mg 1X ONCE PO ; Start 04/17/18 at 16:45; Stop 04/17/18 at 16:49; Status DC Sodium Chloride 1,000 ml @ 75 mls/hr 1X ONCE IV Last administered on at 23:05; Start 04/17/18 at 17:00; Stop 04/18/18 at 06:19; Status DC Enoxaparin Sodium (Lovenox 40mg Syringe) 40 mg DAILY SQ ; Start 04/18/18 at 09: 00; Stop 04/18/18 at 09:00; Status DC Aspirin (Aspirin) 300 mg DAILY [place] Last administered on 04/17/18at 23:05; Start 04/17/18 at 21:00 Iohexol (Omnipaque 300 Mg/ml) 75 ml 1X ONCE IV ; Start 04/18/18 at 09:00; Stop 04/18/18 at 09:01; Status DC Active Scripts Active Aspirin Ec (Aspirin) 325 Mg Tablet.dr 325 Mg PO DAILYWBKFT Atorvastatin Calcium 40 Mg Tablet 40 Mg PO QHS Allergies Allergies: Coded Allergies: No Known Drug Allergies (Unverified , 04/10/18) Vitals VITALS Vital Signs Date Time Temp Pulse Resp B/P (MAP) Pulse Ox O2 Delivery O2 Flow Rate FiO2 04/18/18 07:00 99.3 79 18 140/69 (92) 98 Nasal Cannula 2.0 99.3 Labs Labs Laboratory Tests Test 04/17/18 13:00 04/17/18 13:20 04/18/18 08:30 Urine Collection Type Unknown Urine Color Ina Urine Clarity Clear Urine pH 5.0 Urine Specific [place] 1.025 Urine Protein Negative mg/dL (NEG-TRACE) Urine Glucose (UA) Negative mg/dL (NEG) Urine Ketones (Stick) Trace mg/dL (NEG) Urine Blood Negative (NEG) Urine Nitrite Negative (NEG) Urine Bilirubin Small (NEG) Urine Urobilinogen Dipstick 1.0 mg/dL (0.2 mg/dL) Urine Leukocyte Esterase Negative (NEG) Urine RBC Occ /HPF (0-2) Urine WBC 1-4 /HPF (0-4) Urine Squamous Epithelial Cells Few /LPF Urine Bacteria 0 /HPF (0-FEW) Urine Hyaline Casts Many /HPF Urine Mucus Marked /LPF White Blood Count 8.4 x10^3/uL (4.0-11.0) 8.4 x10^3/uL (4.0-11.0) Red Blood Count 4.60 x10^6/uL (4.30-5.70) 4.44 x10^6/uL (4.30-5.70) Hemoglobin 15.2 g/dL (13.0-17.5) 14.5 g/dL (13.0-17.5) Hematocrit 44.3 % (39.0-53.0) 43.0 % (39.0-53.0) Mean Corpuscular Volume 96 fL (79-100) 97 fL (79-100) Mean Corpuscular Hemoglobin 33 pg (25-35) 33 pg (25-35) Mean Corpuscular Hemoglobin Concent 34 g/dL (31-37) 34 g/dL (31-37) Red Cell Distribution Width 12.8 % (11.5-14.5) 12.8 % (11.5-14.5) Platelet Count 257 x10^3/uL (140-400) 241 x10^3/uL (140-400) Neutrophils (%) (Auto) 78 % (31-73) 63 % (31-73) Lymphocytes (%) (Auto) 13 % (24-48) 23 % (24-48) Monocytes (%) (Auto) 8 % (0-9) 10 % (0-9) Eosinophils (%) (Auto) 1 % (0-3) 3 % (0-3) Basophils (%) (Auto) 0 % (0-3) 1 % (0-3) Neutrophils # (Auto) 6.5 x10^3uL (1.8-7.7) 5.3 x10^3uL (1.8-7.7) Lymphocytes # (Auto) 1.1 x10^3/uL (1.0-4.8) 1.9 x10^3/uL (1.0-4.8) Monocytes # (Auto) 0.6 x10^3/uL (0.0-1.1) 0.8 x10^3/uL (0.0-1.1) Eosinophils # (Auto) 0.1 x10^3/uL (0.0-0.7) 0.3 x10^3/uL (0.0-0.7) Basophils # (Auto) 0.0 x10^3/uL (0.0-0.2) 0.1 x10^3/uL (0.0-0.2) Prothrombin Time 13.6 SEC (11.7-14.0) Prothromb Time International Ratio 1.1 (0.8-1.1) Activated Partial Thromboplast Time 29 SEC (24-38) Sodium Level 140 mmol/L (136-145) 144 mmol/L (136-145) Potassium Level 4.3 mmol/L (3.5-5.1) 4.1 mmol/L (3.5-5.1) Chloride Level 102 mmol/L (98-107) 107 mmol/L (98-107) Carbon Dioxide Level 27 mmol/L (21-32) 27 mmol/L (21-32) Anion Gap 11 (6-14) 10 (6-14) Blood Urea Nitrogen 33 mg/dL (8-26) 31 mg/dL (8-26) Creatinine 1.0 mg/dL (0.7-1.3) 0.9 mg/dL (0.7-1.3) Estimated GFR (Cockcroft-Gault) 87.7 99.0 BUN/Creatinine Ratio 33 (6-20) Glucose Level 119 mg/dL (70-99) 99 mg/dL (70-99) Calcium Level 10.0 mg/dL (8.5-10.1) 9.3 mg/dL (8.5-10.1) Magnesium Level 2.3 mg/dL (1.8-2.4) Total Bilirubin 0.9 mg/dL (0.2-1.0) Aspartate Amino Transf (AST/SGOT) 23 U/L (15-37) Alanine Aminotransferase (ALT/SGPT) 27 U/L (16-63) Alkaline Phosphatase 81 U/L (46-116) Ammonia 12 mcmol/L (11-34) Troponin I Quantitative < 0.017 ng/mL (0.000-0.055) Total Protein 8.0 g/dL (6.4-8.2) Albumin 3.8 g/dL (3.4-5.0) Albumin/Globulin Ratio 0.9 (1.0-1.7) Laboratory Tests Test 04/17/18 13:00 04/17/18 13:20 04/18/18 08:30 Urine Collection Type Unknown Urine Color Ina Urine Clarity Clear Urine pH 5.0 Urine Specific [place] 1.025 Urine Protein Negative mg/dL (NEG-TRACE) Urine Glucose (UA) Negative mg/dL (NEG) Urine Ketones (Stick) Trace mg/dL (NEG) Urine Blood Negative (NEG) Urine Nitrite Negative (NEG) Urine Bilirubin Small (NEG) Urine Urobilinogen Dipstick 1.0 mg/dL (0.2 mg/dL) Urine Leukocyte Esterase Negative (NEG) Urine RBC Occ /HPF (0-2) Urine WBC 1-4 /HPF (0-4) Urine Squamous Epithelial Cells Few /LPF Urine Bacteria 0 /HPF (0-FEW) Urine Hyaline Casts Many /HPF Urine Mucus Marked /LPF White Blood Count 8.4 x10^3/uL (4.0-11.0) 8.4 x10^3/uL (4.0-11.0) Red Blood Count 4.60 x10^6/uL (4.30-5.70) 4.44 x10^6/uL (4.30-5.70) Hemoglobin 15.2 g/dL (13.0-17.5) 14.5 g/dL (13.0-17.5) Hematocrit 44.3 % (39.0-53.0) 43.0 % (39.0-53.0) Mean Corpuscular Volume 96 fL (79-100) 97 fL (79-100) Mean Corpuscular Hemoglobin 33 pg (25-35) 33 pg (25-35) Mean Corpuscular Hemoglobin Concent 34 g/dL (31-37) 34 g/dL (31-37) Red Cell Distribution Width 12.8 % (11.5-14.5) 12.8 % (11.5-14.5) Platelet Count 257 x10^3/uL (140-400) 241 x10^3/uL (140-400) Neutrophils (%) (Auto) 78 % (31-73) 63 % (31-73) Lymphocytes (%) (Auto) 13 % (24-48) 23 % (24-48) Monocytes (%) (Auto) 8 % (0-9) 10 % (0-9) Eosinophils (%) (Auto) 1 % (0-3) 3 % (0-3) Basophils (%) (Auto) 0 % (0-3) 1 % (0-3) Neutrophils # (Auto) 6.5 x10^3uL (1.8-7.7) 5.3 x10^3uL (1.8-7.7) Lymphocytes # (Auto) 1.1 x10^3/uL (1.0-4.8) 1.9 x10^3/uL (1.0-4.8) Monocytes # (Auto) 0.6 x10^3/uL (0.0-1.1) 0.8 x10^3/uL (0.0-1.1) Eosinophils # (Auto) 0.1 x10^3/uL (0.0-0.7) 0.3 x10^3/uL (0.0-0.7) Basophils # (Auto) 0.0 x10^3/uL (0.0-0.2) 0.1 x10^3/uL (0.0-0.2) Prothrombin Time 13.6 SEC (11.7-14.0) Prothromb Time International Ratio 1.1 (0.8-1.1) Activated Partial Thromboplast Time 29 SEC (24-38) Sodium Level 140 mmol/L (136-145) 144 mmol/L (136-145) Potassium Level 4.3 mmol/L (3.5-5.1) 4.1 mmol/L (3.5-5.1) Chloride Level 102 mmol/L (98-107) 107 mmol/L (98-107) Carbon Dioxide Level 27 mmol/L (21-32) 27 mmol/L (21-32) Anion Gap 11 (6-14) 10 (6-14) Blood Urea Nitrogen 33 mg/dL (8-26) 31 mg/dL (8-26) Creatinine 1.0 mg/dL (0.7-1.3) 0.9 mg/dL (0.7-1.3) Estimated GFR (Cockcroft-Gault) 87.7 99.0 BUN/Creatinine Ratio 33 (6-20) Glucose Level 119 mg/dL (70-99) 99 mg/dL (70-99) Calcium Level 10.0 mg/dL (8.5-10.1) 9.3 mg/dL (8.5-10.1) Magnesium Level 2.3 mg/dL (1.8-2.4) Total Bilirubin 0.9 mg/dL (0.2-1.0) Aspartate Amino Transf (AST/SGOT) 23 U/L (15-37) Alanine Aminotransferase (ALT/SGPT) 27 U/L (16-63) Alkaline Phosphatase 81 U/L (46-116) Ammonia 12 mcmol/L (11-34) Troponin I Quantitative < 0.017 ng/mL (0.000-0.055) Total Protein 8.0 g/dL (6.4-8.2) Albumin 3.8 g/dL (3.4-5.0) Albumin/Globulin Ratio 0.9 (1.0-1.7) Assessment/Plan Assessment/Plan Vascular consult dictated Imp: 1. right hemispheric CVA extension, recurrent with left hemiparesis 2. right carotid artery stenosis, >70% Rec: 1. rehab 2. consider right CEA 4-6 weeks depending on degree of recovery. He is not a candidate for CEA at this time due to risk of intracerebral hemorrhage. Discussed with patient. KELLY SANTOS II, MD Apr 18, 2018 10:33
[2018-04-18 11:00] VITALS: BP 127/68
[2018-04-18 15:00] VITALS: BP 145/79
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
--- NOTE | 2018-04-18 17:08 | RAD ---
CTA of the head and neck with contrast, 04/18/2018: HISTORY: Left-sided weakness, CVA Multidetector CT imaging was performed following an IV bolus injection of iodinated contrast material. Multiplanar reconstructions were produced including MIP images and 3-D volume rendered reconstructions of the major arteries. There is moderate calcific plaquing of the aortic arch. No high-grade stenosis is seen at the cervicocephalic arterial origins from the arch. There is moderate calcific plaquing at the right carotid bifurcation. There is severe stenosis at the right internal carotid artery origin. The residual lumen is estimated at only 1-2 mm. The distal right internal carotid artery is patent up to the level the unga of [place]. The middle cerebral artery is unremarkable. The right anterior cerebral artery is patent but small compared to the left side. No prominent anterior communicating artery is seen. There is mild calcific plaquing at the left carotid bifurcation. There is only minimal associated narrowing of the proximal left internal carotid artery. The distal left internal carotid artery is patent up through the level the unga of [place]. There is mild calcific plaquing involving its cavernous segments. The left anterior cerebral and middle cerebral arteries and their major branches are unremarkable. Both vertebral arteries in the neck are widely patent up through their junction with the basilar artery. The right vertebral artery is dominant. The basilar artery is unremarkable. The posterior cerebral arteries show no abnormality. No large posterior communicating artery is evident. Moderate multilevel hypertrophic degenerative change is present in the cervical spine. IMPRESSION: 1. Moderate calcific plaquing of the right carotid bifurcation with severe focal stenosis of the proximal right internal carotid artery. 2. Minimal calcific plaquing at the left carotid bifurcation without significant stenosis. 3. No major intracranial arterial occlusion is identified. 4. Patent, but small right anterior cerebral artery. PQRS Compliance Statement: One or more of the following individualized dose reduction techniques were utilized for this examination: 1. Automated exposure control 2. Adjustment of the mA and/or kV according to patient size 3. Use of iterative reconstruction technique 4. Electronically signed by: Bright Silverio MD (04/18/2018 5:05 PM) [facility]
[2018-04-18] MEDS: CLOPIDOGREL BISULFATE 75 MG TABLET PO SCH (18:00)
[2018-04-18] MEDS: ASPIRIN ENTERIC COATED 325 MG TABLET.DR. PO SCH (18:00)
[2018-04-18 19:42] VITALS: BP 136/69
[2018-04-18] MEDS: ATORVASTATIN CALCIUM 40 MG TABLET. PO SCH (20:07)
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
[2018-04-19 03:40] VITALS: BP 171/77
[2018-04-19] MEDS ORDERED: HEPARIN SODIUM 5,000 UNIT in IV RINGERS,LACTATED 500ML 500 ML IRR ONE (06:00)
[2018-04-19] MEDS ORDERED: LIDOCAINE 1% PF 30ML 48 ML, SODIUM BICARBONATE VIAL 12 MEQ in TOTAL VOLUME SYRINGE 60 ML ID ONE (06:00)
[2018-04-19 07:00] VITALS: BP 130/79
[2018-04-19] MEDS ORDERED: HYDROmorphone 2 MG/ML VIAL IV PRN (07:00)
[2018-04-19] MEDS ORDERED: fentaNYL PF VIAL 100 MCG/2 ML VIAL IV PRN ×2 (07:00)
[2018-04-19] MEDS ORDERED: PROCHLORPERAZINE 10 MG/2 ML VIAL. IV PRN (07:00)
[2018-04-19] MEDS ORDERED: LIDOCAINE 1% PF 2 ML VIAL. ID PRN (07:00)
[2018-04-19] MEDS ORDERED: MORPHINE SULFATE 2 MG/ML VIAL. IV PRN (07:00)
[2018-04-19] MEDS ORDERED: ONDANSETRON PF 4 MG/2 ML VIAL. IV PRN (07:00)
[2018-04-19] MEDS ORDERED: IV RINGERS,LACTATED 1000ML 1,000 ML IV SCH (07:00)
--- NOTE | 2018-04-19 07:53 | PDOC ---
Provider Note Provider Note Vascular S: Patient seen and examined in room, patient lying in bed, states he "wants to get up to go to bathroom and to check on his kids", he is oriented to being in hospital. O: VSS, afebrile Awake and alert HRR Non-labored respirations Full movement right arm and leg, supervisor paper machine strong, unable to move right arm or leg or supervisor paper machine hand Speech is clear Imp: 1. right hemispheric CVA extension, recurrent with left hemiparesis 2. right carotid artery stenosis, >70% Rec: 1. rehab 2. consider right CEA 4-6 weeks depending on degree of recovery. He is not a candidate for CEA at this time due to risk of intracerebral hemorrhage. Discussed with patient. Will arrange follow up with Dr. Thapa. 05/28/2018 11:00 Continue dual antiplatelet therapy ASA and Plavix FRANCIE OLSEN APRN Apr 19, 2018 07:53
[2018-04-19] MEDS: CLOPIDOGREL BISULFATE 75 MG TABLET PO SCH (09:24)
[2018-04-19] MEDS: ASPIRIN ENTERIC COATED 325 MG TABLET.DR. PO SCH (09:24)
[2018-04-19 09:29] LABS: BASO % 1 % (0-3); EOS % 0 % (0-3); HEMATOCRIT 42.8 % (39.0-53.0); HEMOGLOBIN 14.4 g/dL (13.0-17.5); LYMPH # 1.1 x10^3/uL (1.0-4.8); LYMPH % 12 % (24-48); MEAN CORPUSCULAR HEMOGLOBIN 32 pg (25-35); MEAN CORPUSCULAR HGB CONC 34 g/dL (31-37); MEAN CORPUSCULAR VOLUME 96 fL (79-100); MONO # 0.6 x10^3/uL (0.0-1.1); MONO % 7 % (0-9); NEUT # 7.7 x10^3uL (1.8-7.7); NEUT % 81 % (31-73); PLATELET COUNT 249 x10^3/uL (140-400); RED BLOOD COUNT 4.44 x10^6/uL (4.30-5.70); RED CELL DISTRIBUTION WIDTH 12.9 % (11.5-14.5); WHITE BLOOD COUNT 9.5 x10^3/uL (4.0-11.0)
--- NOTE | 2018-04-19 09:30 | PDOC ---
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 Plan Okay to transfer back to rehabilitation today, but does not want to go back to [facility]. Continue rehabilitation modalities here. Continue aspirin Continue atorvastatin Add clopidogrel Avoid Ativan Carotid revascularization in 2-6 weeks depending on his course Objective Vital Signs Date Time Temp Pulse Resp B/P (MAP) Pulse Ox O2 Delivery O2 Flow Rate FiO2 04/19/18 07:00 98.1 94 16 130/79 (96) 95 Room Air 98.1 04/18/18 15:00 2.0 Intake and Output 04/19/18 07:00 Intake Total 200 ml Balance 200 ml Intake Oral 200 ml # Voids 6 PHYSICAL EXAM Alert. Oriented to place and person. PERRL. EOMI. CN: left homonymous hemianopsia, left central facial weakness. Muscle tone: Increased on the left. Muscle strength: 1-2/5 left hemiparesis DTR: 2+ Plantar reflex: flexor Gait: not examined in bed. Sensory exam: left sided neglect and sensory loss. No cerebellar signs elicited out of proportion to weakness. Review of Relevant I have reviewed the following items patsy (where applicable) has been applied. Labs Laboratory Tests Test 04/17/18 13:00 04/17/18 13:20 04/17/18 13:32 04/18/18 06:30 Urine Collection Type Unknown Urine Color Ina Urine Clarity Clear Urine pH 5.0 Urine Specific [place] 1.025 Urine Protein Negative mg/dL (NEG-TRACE) Urine Glucose (UA) Negative mg/dL (NEG) Urine Ketones (Stick) Trace mg/dL (NEG) Urine Blood Negative (NEG) Urine Nitrite Negative (NEG) Urine Bilirubin Small (NEG) Urine Urobilinogen Dipstick 1.0 mg/dL (0.2 mg/dL) Urine Leukocyte Esterase Negative (NEG) Urine RBC Occ /HPF (0-2) Urine WBC 1-4 /HPF (0-4) Urine Squamous Epithelial Cells Few /LPF Urine Bacteria 0 /HPF (0-FEW) Urine Hyaline Casts Many /HPF Urine Mucus Marked /LPF White Blood Count 8.4 x10^3/uL (4.0-11.0) Red Blood Count 4.60 x10^6/uL (4.30-5.70) Hemoglobin 15.2 g/dL (13.0-17.5) Hematocrit 44.3 % (39.0-53.0) Mean Corpuscular Volume 96 fL (79-100) Mean Corpuscular Hemoglobin 33 pg (25-35) Mean Corpuscular Hemoglobin Concent 34 g/dL (31-37) Red Cell Distribution Width 12.8 % (11.5-14.5) Platelet Count 257 x10^3/uL (140-400) Neutrophils (%) (Auto) 78 % (31-73) Lymphocytes (%) (Auto) 13 % (24-48) Monocytes (%) (Auto) 8 % (0-9) Eosinophils (%) (Auto) 1 % (0-3) Basophils (%) (Auto) 0 % (0-3) Neutrophils # (Auto) 6.5 x10^3uL (1.8-7.7) Lymphocytes # (Auto) 1.1 x10^3/uL (1.0-4.8) Monocytes # (Auto) 0.6 x10^3/uL (0.0-1.1) Eosinophils # (Auto) 0.1 x10^3/uL (0.0-0.7) Basophils # (Auto) 0.0 x10^3/uL (0.0-0.2) Prothrombin Time 13.6 SEC (11.7-14.0) Prothromb Time International Ratio 1.1 (0.8-1.1) Activated Partial Thromboplast Time 29 SEC (24-38) Sodium Level 140 mmol/L (136-145) Potassium Level 4.3 mmol/L (3.5-5.1) Chloride Level 102 mmol/L (98-107) Carbon Dioxide Level 27 mmol/L (21-32) Anion Gap 11 (6-14) Blood Urea Nitrogen 33 mg/dL (8-26) Creatinine 1.0 mg/dL (0.7-1.3) Estimated GFR (Cockcroft-Gault) 87.7 BUN/Creatinine Ratio 33 (6-20) Glucose Level 119 mg/dL (70-99) Calcium Level 10.0 mg/dL (8.5-10.1) Magnesium Level 2.3 mg/dL (1.8-2.4) Total Bilirubin 0.9 mg/dL (0.2-1.0) Aspartate Amino Transf (AST/SGOT) 23 U/L (15-37) Alanine Aminotransferase (ALT/SGPT) 27 U/L (16-63) Alkaline Phosphatase 81 U/L (46-116) Ammonia 12 mcmol/L (11-34) Troponin I Quantitative < 0.017 ng/mL (0.000-0.055) Total Protein 8.0 g/dL (6.4-8.2) Albumin 3.8 g/dL (3.4-5.0) Albumin/Globulin Ratio 0.9 (1.0-1.7) Glucose (Fingerstick) 115 mg/dL (70-99) Nasal Screen MRSA (PCR) Negative (Negative) Test 04/18/18 08:30 White Blood Count 8.4 x10^3/uL (4.0-11.0) Red Blood Count 4.44 x10^6/uL (4.30-5.70) Hemoglobin 14.5 g/dL (13.0-17.5) Hematocrit 43.0 % (39.0-53.0) Mean Corpuscular Volume 97 fL (79-100) Mean Corpuscular Hemoglobin 33 pg (25-35) Mean Corpuscular Hemoglobin Concent 34 g/dL (31-37) Red Cell Distribution Width 12.8 % (11.5-14.5) Platelet Count 241 x10^3/uL (140-400) Neutrophils (%) (Auto) 63 % (31-73) Lymphocytes (%) (Auto) 23 % (24-48) Monocytes (%) (Auto) 10 % (0-9) Eosinophils (%) (Auto) 3 % (0-3) Basophils (%) (Auto) 1 % (0-3) Neutrophils # (Auto) 5.3 x10^3uL (1.8-7.7) Lymphocytes # (Auto) 1.9 x10^3/uL (1.0-4.8) Monocytes # (Auto) 0.8 x10^3/uL (0.0-1.1) Eosinophils # (Auto) 0.3 x10^3/uL (0.0-0.7) Basophils # (Auto) 0.1 x10^3/uL (0.0-0.2) Sodium Level 144 mmol/L (136-145) Potassium Level 4.1 mmol/L (3.5-5.1) Chloride Level 107 mmol/L (98-107) Carbon Dioxide Level 27 mmol/L (21-32) Anion Gap 10 (6-14) Blood Urea Nitrogen 31 mg/dL (8-26) Creatinine 0.9 mg/dL (0.7-1.3) Estimated GFR (Cockcroft-Gault) 99.0 Glucose Level 99 mg/dL (70-99) Calcium Level 9.3 mg/dL (8.5-10.1) Microbiology 04/17/18 Blood Culture - Preliminary, Resulted NO GROWTH AFTER 1 DAY Medications Current Medications Sodium Chloride 1,000 ml @ 125 mls/hr 1X ONCE IV Last administered on at 15:58; Start 04/17/18 at 14:30; Stop 04/17/18 at 22:29; Status DC Aspirin (Ecotrin) 325 mg DAILYWBKFT PO ; Start 04/18/18 at 08:00; Stop 04/18/18 at 08:00; Status DC Atorvastatin Calcium (Lipitor) 40 mg QHS PO Last administered on 04/18/18at 20: 07; Start 04/17/18 at 21:00 Acetaminophen (Tylenol) 650 mg PRN Q6HRS PRN PO FEVER; Start 04/17/18 at 16:45 Ondansetron HCl (Zofran) 4 mg PRN Q6HRS PRN IV NAUSEA/VOMITING; Start at 16:45 Morphine Sulfate (Morphine Sulfate) 2 mg PRN Q2HR PRN IV MODERATE TO SEVERE PAIN; Start 04/17/18 at 16:45 Tramadol HCl (Ultram) 50 mg PRN Q6HRS PRN PO MILD TO MODERATE PAIN; Start at 16:45 Docusate Sodium (Colace) 100 mg PRN DAILY PRN PO CONSTIPATION; Start 04/17/18 at 16:45 Labetalol HCl (Normodyne Iv Push) 20 mg PRN Q2HR PRN IVP HYPERTENSION, SEE COMMENTS; Start 04/17/18 at 16:45 Clopidogrel Bisulfate (Plavix) 300 mg 1X ONCE PO ; Start 04/17/18 at 16:45; Stop 04/17/18 at 16:49; Status DC Sodium Chloride 1,000 ml @ 75 mls/hr 1X ONCE IV Last administered on at 23:05; Start 04/17/18 at 17:00; Stop 04/18/18 at 06:19; Status DC Enoxaparin Sodium (Lovenox 40mg Syringe) 40 mg DAILY SQ ; Start 04/18/18 at 09: 00; Stop 04/18/18 at 09:00; Status DC Aspirin (Aspirin) 300 mg DAILY [place] Last administered on 04/17/18at 23:05; Start 04/17/18 at 21:00; Stop 04/18/18 at 13:33; Status DC Iohexol (Omnipaque 300 Mg/ml) 75 ml 1X ONCE IV Last administered on 04/18/18at 09:00; Start 04/18/18 at 09:00; Stop 04/18/18 at 09:01; Status DC Ondansetron HCl (Zofran) 4 mg PRN Q6HRS PRN IV NAUSEA/VOMITING; Start 04/19/18 at 07:00; Stop 04/20/18 at 06:59 Fentanyl Citrate (Fentanyl 2ml Vial) 25 mcg PRN Q5MIN PRN IV MILD PAIN; Start 04/19/18 at 07:00; Stop 04/20/18 at 06:59 Fentanyl Citrate (Fentanyl 2ml Vial) 50 mcg PRN Q5MIN PRN IV MODERATE TO SEVERE PAIN; Start 04/19/18 at 07:00; Stop 04/20/18 at 06:59 Morphine Sulfate (Morphine Sulfate) 1 mg PRN Q10MIN PRN IV SEVERE PAIN; Start 04/19/18 at 07:00; Stop 04/20/18 at 06:59 Ringer's Solution 1,000 ml @ 30 mls/hr Q24H IV ; Start 04/19/18 at 07:00; Stop 04/19/18 at 18:59 Lidocaine HCl (Xylocaine-Mpf 1% 2ml Vial) 2 ml PRN 1X PRN ID IV START; Start 04/19/18 at 07:00; Stop 04/20/18 at 06:59 Hydromorphone HCl (Dilaudid) 0.5 mg PRN Q10MIN PRN IV SEV PAIN, Second choice; Start 04/19/18 at 07:00; Stop 04/20/18 at 06:59 Prochlorperazine Edisylate (Compazine) 5 mg PACU PRN PRN IV NAUSEA, MRX1; Start 04/19/18 at 07:00; Stop 04/20/18 at 06:59 Aspirin (Ecotrin) 325 mg DAILYWBKFT PO Last administered on 04/18/18at 18:00; Start 04/18/18 at 13:30 Heparin Sodium (Porcine) 5000 unit/Ringer's Solution 505 ml @ 505 mls/hr 1X ONCE IRR ; Start 04/19/18 at 06:00; Stop 04/19/18 at 06:59; Status Cancel Lidocaine HCl 48 ml/Sodium Bicarbonate 12 meq/Miscellaneous 60 ml @ 60 mls/hr 1X ONCE ID ; Start 04/19/18 at 06:00; Stop 04/19/18 at 06:59; Status Cancel Clopidogrel Bisulfate (Plavix) 75 mg DAILYWBKFT PO Last administered on at 18:00; Start 04/18/18 at 17:30 Active Scripts Active Aspirin Ec (Aspirin) 325 Mg Tablet. 325 Mg PO DAILYWBKFT Atorvastatin Calcium 40 Mg Tablet 40 Mg PO QHS Vitals/I & O Vital Sign - Last 24 Hours 04/18/18 04/18/18 04/18/18 04/18/18 11:00 15:00 19:42 20:00 Temp 98.2 93.2 98.1 98.2 93.2 98.1 Pulse 82 78 95 Resp 18 18 16 B/P (MAP) 127/68 (87) 145/79 (101) 136/69 (91) Pulse Ox 99 98 94 O2 Delivery Room Air Nasal Cannula Room Air Room Air O2 Flow Rate 2.0 04/18/18 04/19/18 04/19/18 23:30 03:40 07:00 Temp 98.1 98.1 Pulse 92 94 Resp 16 20 16 B/P (MAP) 171/77 (108) 130/79 (96) Pulse Ox 97 95 O2 Delivery Room Air Room Air Intake and Output 04/18/18 04/18/18 04/19/18 15:00 23:00 07:00 Intake Total 200 ml Balance 200 ml Images There is moderate calcific plaquing of the aortic arch. No high-grade stenosis is seen at the cervicocephalic arterial origins from the arch. There is moderate calcific plaquing at the right carotid bifurcation. There is severe stenosis at the right internal carotid artery origin. The residual lumen is estimated at only 1-2 mm. The distal right internal carotid artery is patent up to the level the [place]. The middle cerebral artery is unremarkable. The right anterior cerebral artery is patent but small compared to the left side. No prominent anterior communicating artery is seen. There is mild calcific plaquing at the left carotid bifurcation. There is only minimal associated narrowing of the proximal left internal carotid artery. The distal left internal carotid artery is patent up through the level the [place]. There is mild calcific plaquing involving its cavernous segments. The left anterior cerebral and middle cerebral arteries and their major branches are unremarkable. Both vertebral arteries in the neck are widely patent up through their junction with the basilar artery. The right vertebral artery is dominant. The basilar artery is unremarkable. The posterior cerebral arteries show no abnormality. No large posterior communicating artery is evident. Moderate multilevel hypertrophic degenerative change is present in the cervical spine. IMPRESSION: 1. Moderate calcific plaquing of the right carotid bifurcation with severe focal stenosis of the proximal right internal carotid artery. 2. Minimal calcific plaquing at the left carotid bifurcation without significant stenosis. 3. No major intracranial arterial occlusion is identified. 4. Patent, but small right anterior cerebral artery. JOSE CRUZ LATHAM MD Apr 19, 2018 09:30
[2018-04-19 09:54] LABS: ALBUMIN 3.5 g/dL (3.4-5.0); ALBUMIN/GLOBULIN RATIO 0.8 (1.0-1.7); CALCIUM 9.7 mg/dL (8.5-10.1); CREATININE 0.9 mg/dL (0.7-1.3); TOTAL BILIRUBIN 1.1 mg/dL (0.2-1.0); TOTAL PROTEIN 8.1 g/dL (6.4-8.2)
--- NOTE | 2018-04-19 10:57 | PDOC ---
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 endarterectomy Vitals Vitals Vital Signs Date Time Temp Pulse Resp B/P (MAP) Pulse Ox O2 Delivery O2 Flow Rate FiO2 04/19/18 08:00 Room Air 04/19/18 07:00 98.1 94 16 130/79 (96) 95 98.1 04/18/18 15:00 2.0 Physical Exam Physical Exam Physical Exam GEN.: No apparent distress. HEENT: Head is normocephalic, atraumatic NECK: Supple. LUNGS: Clear to auscultation. HEART: RRR, S1, S2 present. Peripheral pulses intact ABDOMEN: Soft, nontender. Positive bowel sounds. EXTREMITIES: no cyanosis. left side paralysis. General: Cooperative Abdomen: Soft Extremities: No cyanosis Labs LABS Laboratory Tests Test 04/19/18 08:45 White Blood Count 9.5 x10^3/uL (4.0-11.0) Red Blood Count 4.44 x10^6/uL (4.30-5.70) Hemoglobin 14.4 g/dL (13.0-17.5) Hematocrit 42.8 % (39.0-53.0) Mean Corpuscular Volume 96 fL (79-100) Mean Corpuscular Hemoglobin 32 pg (25-35) Mean Corpuscular Hemoglobin Concent 34 g/dL (31-37) Red Cell Distribution Width 12.9 % (11.5-14.5) Platelet Count 249 x10^3/uL (140-400) Neutrophils (%) (Auto) 81 % (31-73) Lymphocytes (%) (Auto) 12 % (24-48) Monocytes (%) (Auto) 7 % (0-9) Eosinophils (%) (Auto) 0 % (0-3) Basophils (%) (Auto) 1 % (0-3) Neutrophils # (Auto) 7.7 x10^3uL (1.8-7.7) Lymphocytes # (Auto) 1.1 x10^3/uL (1.0-4.8) Monocytes # (Auto) 0.6 x10^3/uL (0.0-1.1) Eosinophils # (Auto) 0.0 x10^3/uL (0.0-0.7) Basophils # (Auto) 0.0 x10^3/uL (0.0-0.2) Sodium Level 143 mmol/L (136-145) Potassium Level 4.0 mmol/L (3.5-5.1) Chloride Level 104 mmol/L (98-107) Carbon Dioxide Level 28 mmol/L (21-32) Anion Gap 11 (6-14) Blood Urea Nitrogen 30 mg/dL (8-26) Creatinine 0.9 mg/dL (0.7-1.3) Estimated GFR (Cockcroft-Gault) 99.0 BUN/Creatinine Ratio 33 (6-20) Glucose Level 120 mg/dL (70-99) Calcium Level 9.7 mg/dL (8.5-10.1) Total Bilirubin 1.1 mg/dL (0.2-1.0) Aspartate Amino Transf (AST/SGOT) 26 U/L (15-37) Alanine Aminotransferase (ALT/SGPT) 29 U/L (16-63) Alkaline Phosphatase 82 U/L (46-116) Total Protein 8.1 g/dL (6.4-8.2) Albumin 3.5 g/dL (3.4-5.0) Albumin/Globulin Ratio 0.8 (1.0-1.7) Assessment and Plan Assessmemt and Plan Problems Medical Problems: (1) Stroke Status: Acute Comment Review of Relevant I have reviewed the following items patsy (where applicable) has been applied. Labs Laboratory Tests Test 04/17/18 13:00 04/17/18 13:20 04/17/18 13:32 04/18/18 06:30 Urine Collection Type Unknown Urine Color Ina Urine Clarity Clear Urine pH 5.0 Urine Specific [place] 1.025 Urine Protein Negative mg/dL (NEG-TRACE) Urine Glucose (UA) Negative mg/dL (NEG) Urine Ketones (Stick) Trace mg/dL (NEG) Urine Blood Negative (NEG) Urine Nitrite Negative (NEG) Urine Bilirubin Small (NEG) Urine Urobilinogen Dipstick 1.0 mg/dL (0.2 mg/dL) Urine Leukocyte Esterase Negative (NEG) Urine RBC Occ /HPF (0-2) Urine WBC 1-4 /HPF (0-4) Urine Squamous Epithelial Cells Few /LPF Urine Bacteria 0 /HPF (0-FEW) Urine Hyaline Casts Many /HPF Urine Mucus Marked /LPF White Blood Count 8.4 x10^3/uL (4.0-11.0) Red Blood Count 4.60 x10^6/uL (4.30-5.70) Hemoglobin 15.2 g/dL (13.0-17.5) Hematocrit 44.3 % (39.0-53.0) Mean Corpuscular Volume 96 fL (79-100) Mean Corpuscular Hemoglobin 33 pg (25-35) Mean Corpuscular Hemoglobin Concent 34 g/dL (31-37) Red Cell Distribution Width 12.8 % (11.5-14.5) Platelet Count 257 x10^3/uL (140-400) Neutrophils (%) (Auto) 78 % (31-73) Lymphocytes (%) (Auto) 13 % (24-48) Monocytes (%) (Auto) 8 % (0-9) Eosinophils (%) (Auto) 1 % (0-3) Basophils (%) (Auto) 0 % (0-3) Neutrophils # (Auto) 6.5 x10^3uL (1.8-7.7) Lymphocytes # (Auto) 1.1 x10^3/uL (1.0-4.8) Monocytes # (Auto) 0.6 x10^3/uL (0.0-1.1) Eosinophils # (Auto) 0.1 x10^3/uL (0.0-0.7) Basophils # (Auto) 0.0 x10^3/uL (0.0-0.2) Prothrombin Time 13.6 SEC (11.7-14.0) Prothromb Time International Ratio 1.1 (0.8-1.1) Activated Partial Thromboplast Time 29 SEC (24-38) Sodium Level 140 mmol/L (136-145) Potassium Level 4.3 mmol/L (3.5-5.1) Chloride Level 102 mmol/L (98-107) Carbon Dioxide Level 27 mmol/L (21-32) Anion Gap 11 (6-14) Blood Urea Nitrogen 33 mg/dL (8-26) Creatinine 1.0 mg/dL (0.7-1.3) Estimated GFR (Cockcroft-Gault) 87.7 BUN/Creatinine Ratio 33 (6-20) Glucose Level 119 mg/dL (70-99) Calcium Level 10.0 mg/dL (8.5-10.1) Magnesium Level 2.3 mg/dL (1.8-2.4) Total Bilirubin 0.9 mg/dL (0.2-1.0) Aspartate Amino Transf (AST/SGOT) 23 U/L (15-37) Alanine Aminotransferase (ALT/SGPT) 27 U/L (16-63) Alkaline Phosphatase 81 U/L (46-116) Ammonia 12 mcmol/L (11-34) Troponin I Quantitative < 0.017 ng/mL (0.000-0.055) Total Protein 8.0 g/dL (6.4-8.2) Albumin 3.8 g/dL (3.4-5.0) Albumin/Globulin Ratio 0.9 (1.0-1.7) Glucose (Fingerstick) 115 mg/dL (70-99) Nasal Screen MRSA (PCR) Negative (Negative) Test 04/18/18 08:30 04/19/18 08:45 White Blood Count 8.4 x10^3/uL (4.0-11.0) 9.5 x10^3/uL (4.0-11.0) Red Blood Count 4.44 x10^6/uL (4.30-5.70) 4.44 x10^6/uL (4.30-5.70) Hemoglobin 14.5 g/dL (13.0-17.5) 14.4 g/dL (13.0-17.5) Hematocrit 43.0 % (39.0-53.0) 42.8 % (39.0-53.0) Mean Corpuscular Volume 97 fL (79-100) 96 fL (79-100) Mean Corpuscular Hemoglobin 33 pg (25-35) 32 pg (25-35) Mean Corpuscular Hemoglobin Concent 34 g/dL (31-37) 34 g/dL (31-37) Red Cell Distribution Width 12.8 % (11.5-14.5) 12.9 % (11.5-14.5) Platelet Count 241 x10^3/uL (140-400) 249 x10^3/uL (140-400) Neutrophils (%) (Auto) 63 % (31-73) 81 % (31-73) Lymphocytes (%) (Auto) 23 % (24-48) 12 % (24-48) Monocytes (%) (Auto) 10 % (0-9) 7 % (0-9) Eosinophils (%) (Auto) 3 % (0-3) 0 % (0-3) Basophils (%) (Auto) 1 % (0-3) 1 % (0-3) Neutrophils # (Auto) 5.3 x10^3uL (1.8-7.7) 7.7 x10^3uL (1.8-7.7) Lymphocytes # (Auto) 1.9 x10^3/uL (1.0-4.8) 1.1 x10^3/uL (1.0-4.8) Monocytes # (Auto) 0.8 x10^3/uL (0.0-1.1) 0.6 x10^3/uL (0.0-1.1) Eosinophils # (Auto) 0.3 x10^3/uL (0.0-0.7) 0.0 x10^3/uL (0.0-0.7) Basophils # (Auto) 0.1 x10^3/uL (0.0-0.2) 0.0 x10^3/uL (0.0-0.2) Sodium Level 144 mmol/L (136-145) 143 mmol/L (136-145) Potassium Level 4.1 mmol/L (3.5-5.1) 4.0 mmol/L (3.5-5.1) Chloride Level 107 mmol/L (98-107) 104 mmol/L (98-107) Carbon Dioxide Level 27 mmol/L (21-32) 28 mmol/L (21-32) Anion Gap 10 (6-14) 11 (6-14) Blood Urea Nitrogen 31 mg/dL (8-26) 30 mg/dL (8-26) Creatinine 0.9 mg/dL (0.7-1.3) 0.9 mg/dL (0.7-1.3) Estimated GFR (Cockcroft-Gault) 99.0 99.0 Glucose Level 99 mg/dL (70-99) 120 mg/dL (70-99) Calcium Level 9.3 mg/dL (8.5-10.1) 9.7 mg/dL (8.5-10.1) BUN/Creatinine Ratio 33 (6-20) Total Bilirubin 1.1 mg/dL (0.2-1.0) Aspartate Amino Transf (AST/SGOT) 26 U/L (15-37) Alanine Aminotransferase (ALT/SGPT) 29 U/L (16-63) Alkaline Phosphatase 82 U/L (46-116) Total Protein 8.1 g/dL (6.4-8.2) Albumin 3.5 g/dL (3.4-5.0) Albumin/Globulin Ratio 0.8 (1.0-1.7) Laboratory Tests Test 04/19/18 08:45 White Blood Count 9.5 x10^3/uL (4.0-11.0) Red Blood Count 4.44 x10^6/uL (4.30-5.70) Hemoglobin 14.4 g/dL (13.0-17.5) Hematocrit 42.8 % (39.0-53.0) Mean Corpuscular Volume 96 fL (79-100) Mean Corpuscular Hemoglobin 32 pg (25-35) Mean Corpuscular Hemoglobin Concent 34 g/dL (31-37) Red Cell Distribution Width 12.9 % (11.5-14.5) Platelet Count 249 x10^3/uL (140-400) Neutrophils (%) (Auto) 81 % (31-73) Lymphocytes (%) (Auto) 12 % (24-48) Monocytes (%) (Auto) 7 % (0-9) Eosinophils (%) (Auto) 0 % (0-3) Basophils (%) (Auto) 1 % (0-3) Neutrophils # (Auto) 7.7 x10^3uL (1.8-7.7) Lymphocytes # (Auto) 1.1 x10^3/uL (1.0-4.8) Monocytes # (Auto) 0.6 x10^3/uL (0.0-1.1) Eosinophils # (Auto) 0.0 x10^3/uL (0.0-0.7) Basophils # (Auto) 0.0 x10^3/uL (0.0-0.2) Sodium Level 143 mmol/L (136-145) Potassium Level 4.0 mmol/L (3.5-5.1) Chloride Level 104 mmol/L (98-107) Carbon Dioxide Level 28 mmol/L (21-32) Anion Gap 11 (6-14) Blood Urea Nitrogen 30 mg/dL (8-26) Creatinine 0.9 mg/dL (0.7-1.3) Estimated GFR (Cockcroft-Gault) 99.0 BUN/Creatinine Ratio 33 (6-20) Glucose Level 120 mg/dL (70-99) Calcium Level 9.7 mg/dL (8.5-10.1) Total Bilirubin 1.1 mg/dL (0.2-1.0) Aspartate Amino Transf (AST/SGOT) 26 U/L (15-37) Alanine Aminotransferase (ALT/SGPT) 29 U/L (16-63) Alkaline Phosphatase 82 U/L (46-116) Total Protein 8.1 g/dL (6.4-8.2) Albumin 3.5 g/dL (3.4-5.0) Albumin/Globulin Ratio 0.8 (1.0-1.7) Microbiology 04/17/18 Blood Culture - Preliminary, Resulted NO GROWTH AFTER 1 DAY Medications Current Medications Sodium Chloride 1,000 ml @ 125 mls/hr 1X ONCE IV Last administered on at 15:58; Start 04/17/18 at 14:30; Stop 04/17/18 at 22:29; Status DC Aspirin (Ecotrin) 325 mg DAILYWBKFT PO ; Start 04/18/18 at 08:00; Stop 04/18/18 at 08:00; Status DC Atorvastatin Calcium (Lipitor) 40 mg QHS PO Last administered on 04/18/18at 20: 07; Start 04/17/18 at 21:00 Acetaminophen (Tylenol) 650 mg PRN Q6HRS PRN PO FEVER; Start 04/17/18 at 16:45 Ondansetron HCl (Zofran) 4 mg PRN Q6HRS PRN IV NAUSEA/VOMITING; Start at 16:45 Morphine Sulfate (Morphine Sulfate) 2 mg PRN Q2HR PRN IV MODERATE TO SEVERE PAIN; Start 04/17/18 at 16:45 Tramadol HCl (Ultram) 50 mg PRN Q6HRS PRN PO MILD TO MODERATE PAIN; Start at 16:45 Docusate Sodium (Colace) 100 mg PRN DAILY PRN PO CONSTIPATION; Start 04/17/18 at 16:45 Labetalol HCl (Normodyne Iv Push) 20 mg PRN Q2HR PRN IVP HYPERTENSION, SEE COMMENTS; Start 04/17/18 at 16:45 Clopidogrel Bisulfate (Plavix) 300 mg 1X ONCE PO ; Start 04/17/18 at 16:45; Stop 04/17/18 at 16:49; Status DC Sodium Chloride 1,000 ml @ 75 mls/hr 1X ONCE IV Last administered on at 23:05; Start 04/17/18 at 17:00; Stop 04/18/18 at 06:19; Status DC Enoxaparin Sodium (Lovenox 40mg Syringe) 40 mg DAILY SQ ; Start 04/18/18 at 09: 00; Stop 04/18/18 at 09:00; Status DC Aspirin (Aspirin) 300 mg DAILY [place] Last administered on 04/17/18at 23:05; Start 04/17/18 at 21:00; Stop 04/18/18 at 13:33; Status DC Iohexol (Omnipaque 300 Mg/ml) 75 ml 1X ONCE IV Last administered on 04/18/18at 09:00; Start 04/18/18 at 09:00; Stop 04/18/18 at 09:01; Status DC Ondansetron HCl (Zofran) 4 mg PRN Q6HRS PRN IV NAUSEA/VOMITING; Start 04/19/18 at 07:00; Stop 04/20/18 at 06:59 Fentanyl Citrate (Fentanyl 2ml Vial) 25 mcg PRN Q5MIN PRN IV MILD PAIN; Start 04/19/18 at 07:00; Stop 04/20/18 at 06:59 Fentanyl Citrate (Fentanyl 2ml Vial) 50 mcg PRN Q5MIN PRN IV MODERATE TO SEVERE PAIN; Start 04/19/18 at 07:00; Stop 04/20/18 at 06:59 Morphine Sulfate (Morphine Sulfate) 1 mg PRN Q10MIN PRN IV SEVERE PAIN; Start 04/19/18 at 07:00; Stop 04/20/18 at 06:59 Ringer's Solution 1,000 ml @ 30 mls/hr Q24H IV ; Start 04/19/18 at 07:00; Stop 04/19/18 at 18:59 Lidocaine HCl (Xylocaine-Mpf 1% 2ml Vial) 2 ml PRN 1X PRN ID IV START; Start 04/19/18 at 07:00; Stop 04/20/18 at 06:59 Hydromorphone HCl (Dilaudid) 0.5 mg PRN Q10MIN PRN IV SEV PAIN, Second choice; Start 04/19/18 at 07:00; Stop 04/20/18 at 06:59 Prochlorperazine Edisylate (Compazine) 5 mg PACU PRN PRN IV NAUSEA, MRX1; Start 04/19/18 at 07:00; Stop 04/20/18 at 06:59 Aspirin (Ecotrin) 325 mg DAILYWBKFT PO Last administered on 04/19/18at 09:24; Start 04/18/18 at 13:30 Heparin Sodium (Porcine) 5000 unit/Ringer's Solution 505 ml @ 505 mls/hr 1X ONCE IRR ; Start 04/19/18 at 06:00; Stop 04/19/18 at 06:59; Status Cancel Lidocaine HCl 48 ml/Sodium Bicarbonate 12 meq/Miscellaneous 60 ml @ 60 mls/hr 1X ONCE ID ; Start 04/19/18 at 06:00; Stop 04/19/18 at 06:59; Status Cancel Clopidogrel Bisulfate (Plavix) 75 mg DAILYWBKFT PO Last administered on at 09:24; Start 04/18/18 at 17:30 Active Scripts Active Aspirin Ec (Aspirin) 325 Mg Tablet. 325 Mg PO DAILYWBKFT Atorvastatin Calcium 40 Mg Tablet 40 Mg PO QHS Vitals/I & O Vital Sign - Last 24 Hours 04/18/18 04/18/18 04/18/18 04/18/18 11:00 15:00 19:42 20:00 Temp 98.2 93.2 98.1 98.2 93.2 98.1 Pulse 82 78 95 Resp 18 18 16 B/P (MAP) 127/68 (87) 145/79 (101) 136/69 (91) Pulse Ox 99 98 94 O2 Delivery Room Air Nasal Cannula Room Air Room Air O2 Flow Rate 2.0 04/18/18 04/19/18 04/19/18 04/19/18 23:30 03:40 07:00 08:00 Temp 98.1 98.1 Pulse 92 94 Resp 16 20 16 B/P (MAP) 171/77 (108) 130/79 (96) Pulse Ox 97 95 O2 Delivery Room Air Room Air Room Air Intake and Output 04/18/18 04/18/18 04/19/18 15:00 23:00 07:00 Intake Total 200 ml Balance 200 ml GANESH ASENCIO MD Apr 19, 2018 10:57
[2018-04-19 11:00] VITALS: BP 148/62
[2018-04-19 15:00] VITALS: BP 129/64
[2018-04-19 19:46] VITALS: BP 135/63
[2018-04-19] MEDS: ATORVASTATIN CALCIUM 40 MG TABLET. PO SCH (21:04)
[2018-04-19 23:41] VITALS: BP_SYST 121; BP_SYST 144; BP_DIAS 56; BP_DIAS 72
[2018-04-20 04:43] LABS: BASO # 0.1 x10^3/uL (0.0-0.2); BASO % 1 % (0-3); EOS # 0.3 x10^3/uL (0.0-0.7); EOS % 3 % (0-3); HEMATOCRIT 43.4 % (39.0-53.0); HEMOGLOBIN 14.5 g/dL (13.0-17.5); LYMPH # 1.6 x10^3/uL (1.0-4.8); LYMPH % 21 % (24-48); MEAN CORPUSCULAR HEMOGLOBIN 33 pg (25-35); MEAN CORPUSCULAR HGB CONC 33 g/dL (31-37); MEAN CORPUSCULAR VOLUME 98 fL (79-100); MONO # 0.6 x10^3/uL (0.0-1.1); MONO % 8 % (0-9); NEUT # 5.2 x10^3uL (1.8-7.7); NEUT % 67 % (31-73); PLATELET COUNT 228 x10^3/uL (140-400); RED BLOOD COUNT 4.45 x10^6/uL (4.30-5.70); RED CELL DISTRIBUTION WIDTH 12.9 % (11.5-14.5); WHITE BLOOD COUNT 7.8 x10^3/uL (4.0-11.0)
[2018-04-20 05:06] LABS: ALBUMIN 3.4 g/dL (3.4-5.0); ALBUMIN/GLOBULIN RATIO 0.9 (1.0-1.7); CALCIUM 9.7 mg/dL (8.5-10.1); CREATININE 0.8 mg/dL (0.7-1.3); GFR 113.4; POTASSIUM 4.4 mmol/L (3.5-5.1); TOTAL BILIRUBIN 1.1 mg/dL (0.2-1.0); TOTAL PROTEIN 7.3 g/dL (6.4-8.2)
[2018-04-20 07:00] VITALS: BP 150/78
--- NOTE | 2018-04-20 08:49 | PDOC ---
PROGRESS NOTES History of Present Illness History of Present Illness Assessment/Plan Assessment/Plan worsening recent acute ischemia/infarction extensively involving the right periventricular white matter in the frontal, temporal and parietal regions .Old right basal ganglia infarct on CT Met enceph sec to stroke and possibly cognitive delay/vs undiagnosed dementia Accelerated hypertension POA Never smoker, never drinker Dry skin Dysphagia, neurogenic on honey thicken liquid HIgh grade stenosis, Rt ICA bifurcation 70-99% Progression of right hemispheric strokes related to right carotid stenosis WANTS to go home and do the [employer] work plan: no ativan neuro following CEA if stable in 4-6 weeks po, resume asa, lipitor plavix ivf gentle PTOT dvt ppx vascular consult ? endarterectomy IN FUTURE NEEDS REHAB BED, AWAIT Vitals Vitals Vital Signs Date Time Temp Pulse Resp B/P (MAP) Pulse Ox O2 Delivery O2 Flow Rate FiO2 04/20/18 03:51 16 Room Air 04/19/18 23:41 98.3 72 144/56 (85) 98 98.3 Physical Exam Physical Exam Physical Exam GEN.: No apparent distress. HEENT: Head is normocephalic, atraumatic NECK: Supple. LUNGS: Clear to auscultation. HEART: RRR, S1, S2 present. Peripheral pulses intact ABDOMEN: Soft, nontender. Positive bowel sounds. EXTREMITIES: no cyanosis. left side paralysis. General: Alert, Cooperative, No acute distress, Other (confused to details) Heart: Regular rate, Normal S1 Lungs: Clear Abdomen: Normal bowel sounds, Soft, No tenderness Extremities: No clubbing, No cyanosis, No edema Labs LABS Laboratory Tests Test 04/20/18 04:15 White Blood Count 7.8 x10^3/uL (4.0-11.0) Red Blood Count 4.45 x10^6/uL (4.30-5.70) Hemoglobin 14.5 g/dL (13.0-17.5) Hematocrit 43.4 % (39.0-53.0) Mean Corpuscular Volume 98 fL (79-100) Mean Corpuscular Hemoglobin 33 pg (25-35) Mean Corpuscular Hemoglobin Concent 33 g/dL (31-37) Red Cell Distribution Width 12.9 % (11.5-14.5) Platelet Count 228 x10^3/uL (140-400) Neutrophils (%) (Auto) 67 % (31-73) Lymphocytes (%) (Auto) 21 % (24-48) Monocytes (%) (Auto) 8 % (0-9) Eosinophils (%) (Auto) 3 % (0-3) Basophils (%) (Auto) 1 % (0-3) Neutrophils # (Auto) 5.2 x10^3uL (1.8-7.7) Lymphocytes # (Auto) 1.6 x10^3/uL (1.0-4.8) Monocytes # (Auto) 0.6 x10^3/uL (0.0-1.1) Eosinophils # (Auto) 0.3 x10^3/uL (0.0-0.7) Basophils # (Auto) 0.1 x10^3/uL (0.0-0.2) Sodium Level 145 mmol/L (136-145) Potassium Level 4.4 mmol/L (3.5-5.1) Chloride Level 108 mmol/L (98-107) Carbon Dioxide Level 30 mmol/L (21-32) Anion Gap 7 (6-14) Blood Urea Nitrogen 31 mg/dL (8-26) Creatinine 0.8 mg/dL (0.7-1.3) Estimated GFR (Cockcroft-Gault) 113.4 BUN/Creatinine Ratio 39 (6-20) Glucose Level 110 mg/dL (70-99) Calcium Level 9.7 mg/dL (8.5-10.1) Total Bilirubin 1.1 mg/dL (0.2-1.0) Aspartate Amino Transf (AST/SGOT) 23 U/L (15-37) Alanine Aminotransferase (ALT/SGPT) 32 U/L (16-63) Alkaline Phosphatase 81 U/L (46-116) Total Protein 7.3 g/dL (6.4-8.2) Albumin 3.4 g/dL (3.4-5.0) Albumin/Globulin Ratio 0.9 (1.0-1.7) Assessment and Plan Assessmemt and Plan Problems Medical Problems: (1) Stroke Status: Acute Comment Review of Relevant I have reviewed the following items patsy (where applicable) has been applied. Labs Laboratory Tests Test 04/19/18 08:45 04/20/18 04:15 White Blood Count 9.5 x10^3/uL (4.0-11.0) 7.8 x10^3/uL (4.0-11.0) Red Blood Count 4.44 x10^6/uL (4.30-5.70) 4.45 x10^6/uL (4.30-5.70) Hemoglobin 14.4 g/dL (13.0-17.5) 14.5 g/dL (13.0-17.5) Hematocrit 42.8 % (39.0-53.0) 43.4 % (39.0-53.0) Mean Corpuscular Volume 96 fL (79-100) 98 fL (79-100) Mean Corpuscular Hemoglobin 32 pg (25-35) 33 pg (25-35) Mean Corpuscular Hemoglobin Concent 34 g/dL (31-37) 33 g/dL (31-37) Red Cell Distribution Width 12.9 % (11.5-14.5) 12.9 % (11.5-14.5) Platelet Count 249 x10^3/uL (140-400) 228 x10^3/uL (140-400) Neutrophils (%) (Auto) 81 % (31-73) 67 % (31-73) Lymphocytes (%) (Auto) 12 % (24-48) 21 % (24-48) Monocytes (%) (Auto) 7 % (0-9) 8 % (0-9) Eosinophils (%) (Auto) 0 % (0-3) 3 % (0-3) Basophils (%) (Auto) 1 % (0-3) 1 % (0-3) Neutrophils # (Auto) 7.7 x10^3uL (1.8-7.7) 5.2 x10^3uL (1.8-7.7) Lymphocytes # (Auto) 1.1 x10^3/uL (1.0-4.8) 1.6 x10^3/uL (1.0-4.8) Monocytes # (Auto) 0.6 x10^3/uL (0.0-1.1) 0.6 x10^3/uL (0.0-1.1) Eosinophils # (Auto) 0.0 x10^3/uL (0.0-0.7) 0.3 x10^3/uL (0.0-0.7) Basophils # (Auto) 0.0 x10^3/uL (0.0-0.2) 0.1 x10^3/uL (0.0-0.2) Sodium Level 143 mmol/L (136-145) 145 mmol/L (136-145) Potassium Level 4.0 mmol/L (3.5-5.1) 4.4 mmol/L (3.5-5.1) Chloride Level 104 mmol/L (98-107) 108 mmol/L (98-107) Carbon Dioxide Level 28 mmol/L (21-32) 30 mmol/L (21-32) Anion Gap 11 (6-14) 7 (6-14) Blood Urea Nitrogen 30 mg/dL (8-26) 31 mg/dL (8-26) Creatinine 0.9 mg/dL (0.7-1.3) 0.8 mg/dL (0.7-1.3) Estimated GFR (Cockcroft-Gault) 99.0 113.4 BUN/Creatinine Ratio 33 (6-20) 39 (6-20) Glucose Level 120 mg/dL (70-99) 110 mg/dL (70-99) Calcium Level 9.7 mg/dL (8.5-10.1) 9.7 mg/dL (8.5-10.1) Total Bilirubin 1.1 mg/dL (0.2-1.0) 1.1 mg/dL (0.2-1.0) Aspartate Amino Transf (AST/SGOT) 26 U/L (15-37) 23 U/L (15-37) Alanine Aminotransferase (ALT/SGPT) 29 U/L (16-63) 32 U/L (16-63) Alkaline Phosphatase 82 U/L (46-116) 81 U/L (46-116) Total Protein 8.1 g/dL (6.4-8.2) 7.3 g/dL (6.4-8.2) Albumin 3.5 g/dL (3.4-5.0) 3.4 g/dL (3.4-5.0) Albumin/Globulin Ratio 0.8 (1.0-1.7) 0.9 (1.0-1.7) Laboratory Tests Test 04/20/18 04:15 White Blood Count 7.8 x10^3/uL (4.0-11.0) Red Blood Count 4.45 x10^6/uL (4.30-5.70) Hemoglobin 14.5 g/dL (13.0-17.5) Hematocrit 43.4 % (39.0-53.0) Mean Corpuscular Volume 98 fL (79-100) Mean Corpuscular Hemoglobin 33 pg (25-35) Mean Corpuscular Hemoglobin Concent 33 g/dL (31-37) Red Cell Distribution Width 12.9 % (11.5-14.5) Platelet Count 228 x10^3/uL (140-400) Neutrophils (%) (Auto) 67 % (31-73) Lymphocytes (%) (Auto) 21 % (24-48) Monocytes (%) (Auto) 8 % (0-9) Eosinophils (%) (Auto) 3 % (0-3) Basophils (%) (Auto) 1 % (0-3) Neutrophils # (Auto) 5.2 x10^3uL (1.8-7.7) Lymphocytes # (Auto) 1.6 x10^3/uL (1.0-4.8) Monocytes # (Auto) 0.6 x10^3/uL (0.0-1.1) Eosinophils # (Auto) 0.3 x10^3/uL (0.0-0.7) Basophils # (Auto) 0.1 x10^3/uL (0.0-0.2) Sodium Level 145 mmol/L (136-145) Potassium Level 4.4 mmol/L (3.5-5.1) Chloride Level 108 mmol/L (98-107) Carbon Dioxide Level 30 mmol/L (21-32) Anion Gap 7 (6-14) Blood Urea Nitrogen 31 mg/dL (8-26) Creatinine 0.8 mg/dL (0.7-1.3) Estimated GFR (Cockcroft-Gault) 113.4 BUN/Creatinine Ratio 39 (6-20) Glucose Level 110 mg/dL (70-99) Calcium Level 9.7 mg/dL (8.5-10.1) Total Bilirubin 1.1 mg/dL (0.2-1.0) Aspartate Amino Transf (AST/SGOT) 23 U/L (15-37) Alanine Aminotransferase (ALT/SGPT) 32 U/L (16-63) Alkaline Phosphatase 81 U/L (46-116) Total Protein 7.3 g/dL (6.4-8.2) Albumin 3.4 g/dL (3.4-5.0) Albumin/Globulin Ratio 0.9 (1.0-1.7) Microbiology 04/17/18 Blood Culture - Preliminary, Resulted NO GROWTH AFTER 2 DAYS Medications Current Medications Sodium Chloride 1,000 ml @ 125 mls/hr 1X ONCE IV Last administered on at 15:58; Start 04/17/18 at 14:30; Stop 04/17/18 at 22:29; Status DC Aspirin (Ecotrin) 325 mg DAILYWBKFT PO ; Start 04/18/18 at 08:00; Stop 04/18/18 at 08:00; Status DC Atorvastatin Calcium (Lipitor) 40 mg QHS PO Last administered on 04/19/18at 21: 04; Start 04/17/18 at 21:00 Acetaminophen (Tylenol) 650 mg PRN Q6HRS PRN PO FEVER; Start 04/17/18 at 16:45 Ondansetron HCl (Zofran) 4 mg PRN Q6HRS PRN IV NAUSEA/VOMITING; Start at 16:45 Morphine Sulfate (Morphine Sulfate) 2 mg PRN Q2HR PRN IV MODERATE TO SEVERE PAIN; Start 04/17/18 at 16:45 Tramadol HCl (Ultram) 50 mg PRN Q6HRS PRN PO MILD TO MODERATE PAIN; Start at 16:45 Docusate Sodium (Colace) 100 mg PRN DAILY PRN PO CONSTIPATION; Start 04/17/18 at 16:45 Labetalol HCl (Normodyne Iv Push) 20 mg PRN Q2HR PRN IVP HYPERTENSION, SEE COMMENTS; Start 04/17/18 at 16:45 Clopidogrel Bisulfate (Plavix) 300 mg 1X ONCE PO ; Start 04/17/18 at 16:45; Stop 04/17/18 at 16:49; Status DC Sodium Chloride 1,000 ml @ 75 mls/hr 1X ONCE IV Last administered on at 23:05; Start 04/17/18 at 17:00; Stop 04/18/18 at 06:19; Status DC Enoxaparin Sodium (Lovenox 40mg Syringe) 40 mg DAILY SQ ; Start 04/18/18 at 09: 00; Stop 04/18/18 at 09:00; Status DC Aspirin (Aspirin) 300 mg DAILY [place] Last administered on 04/17/18at 23:05; Start 04/17/18 at 21:00; Stop 04/18/18 at 13:33; Status DC Iohexol (Omnipaque 300 Mg/ml) 75 ml 1X ONCE IV Last administered on 04/18/18at 09:00; Start 04/18/18 at 09:00; Stop 04/18/18 at 09:01; Status DC Ondansetron HCl (Zofran) 4 mg PRN Q6HRS PRN IV NAUSEA/VOMITING; Start 04/19/18 at 07:00; Stop 04/19/18 at 17:04; Status DC Fentanyl Citrate (Fentanyl 2ml Vial) 25 mcg PRN Q5MIN PRN IV MILD PAIN; Start 04/19/18 at 07:00; Stop 04/19/18 at 17:01; Status DC Fentanyl Citrate (Fentanyl 2ml Vial) 50 mcg PRN Q5MIN PRN IV MODERATE TO SEVERE PAIN; Start 04/19/18 at 07:00; Stop 04/19/18 at 17:02; Status DC Morphine Sulfate (Morphine Sulfate) 1 mg PRN Q10MIN PRN IV SEVERE PAIN; Start 04/19/18 at 07:00; Stop 04/19/18 at 17:03; Status DC Ringer's Solution 1,000 ml @ 30 mls/hr Q24H IV ; Start 04/19/18 at 07:00; Stop 04/19/18 at 17:09; Status DC Lidocaine HCl (Xylocaine-Mpf 1% 2ml Vial) 2 ml PRN 1X PRN ID IV START; Start 04/19/18 at 07:00; Stop 04/19/18 at 17:09; Status DC Hydromorphone HCl (Dilaudid) 0.5 mg PRN Q10MIN PRN IV SEV PAIN, Second choice; Start 04/19/18 at 07:00; Stop 04/19/18 at 17:03; Status DC Prochlorperazine Edisylate (Compazine) 5 mg PACU PRN PRN IV NAUSEA, MRX1; Start 04/19/18 at 07:00; Stop 04/19/18 at 17:04; Status DC Aspirin (Ecotrin) 325 mg DAILYWBKFT PO Last administered on 04/19/18at 09:24; Start 04/18/18 at 13:30 Heparin Sodium (Porcine) 5000 unit/Ringer's Solution 505 ml @ 505 mls/hr 1X ONCE IRR ; Start 04/19/18 at 06:00; Stop 04/19/18 at 06:59; Status Cancel Lidocaine HCl 48 ml/Sodium Bicarbonate 12 meq/Miscellaneous 60 ml @ 60 mls/hr 1X ONCE ID ; Start 04/19/18 at 06:00; Stop 04/19/18 at 06:59; Status Cancel Clopidogrel Bisulfate (Plavix) 75 mg DAILYWBKFT PO Last administered on at 09:24; Start 04/18/18 at 17:30 Active Scripts Active Aspirin Ec (Aspirin) 325 Mg Tablet. 325 Mg PO DAILYWBKFT Atorvastatin Calcium 40 Mg Tablet 40 Mg PO QHS Vitals/I & O Vital Sign - Last 24 Hours 04/19/18 04/19/18 04/19/18 04/19/18 11:00 15:00 19:46 20:00 Temp 98.3 97.9 98.2 98.3 97.9 98.2 Pulse 82 88 87 Resp 20 20 20 B/P (MAP) 148/62 (90) 129/64 (85) 135/63 (87) Pulse Ox 95 95 96 O2 Delivery Room Air Room Air Room Air Room Air 04/19/18 04/20/18 23:41 03:51 Temp 98.3 98.3 Pulse 72 Resp 16 16 B/P (MAP) 144/56 (85) Pulse Ox 98 O2 Delivery Room Air Room Air Intake and Output 04/19/18 04/19/18 04/20/18 15:00 23:00 07:00 Intake Total 240 ml Output Total 200 ml Balance 40 ml GANESH ASENCIO MD Apr 20, 2018 08:49
[2018-04-20] MEDS: CLOPIDOGREL BISULFATE 75 MG TABLET PO SCH (09:33)
[2018-04-20] MEDS: ASPIRIN ENTERIC COATED 325 MG TABLET.DR. PO SCH (09:33)
[2018-04-20 11:00] VITALS: BP 131/80
--- NOTE | 2018-04-20 11:30 | PDOC3 ---
Discharge Summary Date of Admission: Apr 17, 2018 Date of Discharge: Apr 20, 2018 Follow-Up: 1-2 days Admitting Diagnosis comment: DISCHARGE DIAGNOSIS Assessment/Plan worsening recent acute ischemia/infarction extensively involving the right periventricular white matter in the frontal, temporal and parietal regions .Old right basal ganglia infarct on CT Met enceph sec to stroke and possibly cognitive delay/vs undiagnosed dementia Accelerated hypertension POA Never smoker, never drinker Dry skin Dysphagia, neurogenic on honey thicken liquid HIgh grade stenosis, Rt ICA bifurcation 70-99% Progression of right hemispheric strokes related to right carotid stenosis WANTS to go home and "do the [employer] work" plan: no ativan neuro following CEA if stable in 4-6 weeks po, resume asa, lipitor plavix PTOT dvt ppx vascular consult ? endarterectomy IN FUTURE BY DR STEWART NEEDS REHAB BED, AWAIT Vitals Vitals Vital Signs Date Time Temp Pulse Resp B/P (MAP) Pulse Ox O2 Delivery O2 Flow Rate FiO2 04/20/18 03:51 16 Room Air 04/19/18 23:41 98.3 72 144/56 (85) 98 98.3 Physical Exam Physical Exam Physical Exam GEN.: No apparent distress. HEENT: Head is normocephalic, atraumatic NECK: Supple. LUNGS: Clear to auscultation. HEART: RRR, S1, S2 present. Peripheral pulses intact ABDOMEN: Soft, nontender. Positive bowel sounds. EXTREMITIES: no cyanosis. left side paralysis. General: Alert, Cooperative, No acute distress, Other (confused to details) Heart: Regular rate, Normal S1 Lungs: Clear Abdomen: Normal bowel sounds, Soft, No tenderness Extremities: No clubbing, No cyanosis, No edema FINAL DIAGNOSIS Problems Medical Problems: (1) Stroke Status: Acute Brief Hospital Course Mr. Lopez is a 77 old [sex] who presented with [ CVA] CONDITION AT DISCHARGE: Improved Discharge Medications Current Medications Sodium Chloride 1,000 ml @ 125 mls/hr 1X ONCE IV Last administered on at 15:58; Start 04/17/18 at 14:30; Stop 04/17/18 at 22:29; Status DC Aspirin (Ecotrin) 325 mg DAILYWBKFT PO ; Start 04/18/18 at 08:00; Stop 04/18/18 at 08:00; Status DC Atorvastatin Calcium (Lipitor) 40 mg QHS PO Last administered on 04/19/18at 21: 04; Start 04/17/18 at 21:00 Acetaminophen (Tylenol) 650 mg PRN Q6HRS PRN PO FEVER; Start 04/17/18 at 16:45 Ondansetron HCl (Zofran) 4 mg PRN Q6HRS PRN IV NAUSEA/VOMITING; Start at 16:45 Morphine Sulfate (Morphine Sulfate) 2 mg PRN Q2HR PRN IV MODERATE TO SEVERE PAIN; Start 04/17/18 at 16:45 Tramadol HCl (Ultram) 50 mg PRN Q6HRS PRN PO MILD TO MODERATE PAIN; Start at 16:45 Docusate Sodium (Colace) 100 mg PRN DAILY PRN PO CONSTIPATION; Start 04/17/18 at 16:45 Labetalol HCl (Normodyne Iv Push) 20 mg PRN Q2HR PRN IVP HYPERTENSION, SEE COMMENTS; Start 04/17/18 at 16:45 Clopidogrel Bisulfate (Plavix) 300 mg 1X ONCE PO ; Start 04/17/18 at 16:45; Stop 04/17/18 at 16:49; Status DC Sodium Chloride 1,000 ml @ 75 mls/hr 1X ONCE IV Last administered on at 23:05; Start 04/17/18 at 17:00; Stop 04/18/18 at 06:19; Status DC Enoxaparin Sodium (Lovenox 40mg Syringe) 40 mg DAILY SQ ; Start 04/18/18 at 09: 00; Stop 04/18/18 at 09:00; Status DC Aspirin (Aspirin) 300 mg DAILY [place] Last administered on 04/17/18at 23:05; Start 04/17/18 at 21:00; Stop 04/18/18 at 13:33; Status DC Iohexol (Omnipaque 300 Mg/ml) 75 ml 1X ONCE IV Last administered on 04/18/18at 09:00; Start 04/18/18 at 09:00; Stop 04/18/18 at 09:01; Status DC Ondansetron HCl (Zofran) 4 mg PRN Q6HRS PRN IV NAUSEA/VOMITING; Start 04/19/18 at 07:00; Stop 04/19/18 at 17:04; Status DC Fentanyl Citrate (Fentanyl 2ml Vial) 25 mcg PRN Q5MIN PRN IV MILD PAIN; Start 04/19/18 at 07:00; Stop 04/19/18 at 17:01; Status DC Fentanyl Citrate (Fentanyl 2ml Vial) 50 mcg PRN Q5MIN PRN IV MODERATE TO SEVERE PAIN; Start 04/19/18 at 07:00; Stop 04/19/18 at 17:02; Status DC Morphine Sulfate (Morphine Sulfate) 1 mg PRN Q10MIN PRN IV SEVERE PAIN; Start 04/19/18 at 07:00; Stop 04/19/18 at 17:03; Status DC Ringer's Solution 1,000 ml @ 30 mls/hr Q24H IV ; Start 04/19/18 at 07:00; Stop 04/19/18 at 17:09; Status DC Lidocaine HCl (Xylocaine-Mpf 1% 2ml Vial) 2 ml PRN 1X PRN ID IV START; Start 04/19/18 at 07:00; Stop 04/19/18 at 17:09; Status DC Hydromorphone HCl (Dilaudid) 0.5 mg PRN Q10MIN PRN IV SEV PAIN, Second choice; Start 04/19/18 at 07:00; Stop 04/19/18 at 17:03; Status DC Prochlorperazine Edisylate (Compazine) 5 mg PACU PRN PRN IV NAUSEA, MRX1; Start 04/19/18 at 07:00; Stop 04/19/18 at 17:04; Status DC Aspirin (Ecotrin) 325 mg DAILYWBKFT PO Last administered on 04/20/18at 09:33; Start 04/18/18 at 13:30 Heparin Sodium (Porcine) 5000 unit/Ringer's Solution 505 ml @ 505 mls/hr 1X ONCE IRR ; Start 04/19/18 at 06:00; Stop 04/19/18 at 06:59; Status Cancel Lidocaine HCl 48 ml/Sodium Bicarbonate 12 meq/Miscellaneous 60 ml @ 60 mls/hr 1X ONCE ID ; Start 04/19/18 at 06:00; Stop 04/19/18 at 06:59; Status Cancel Clopidogrel Bisulfate (Plavix) 75 mg DAILYWBKFT PO Last administered on at 09:33; Start 04/18/18 at 17:30 Active Scripts Active Aspirin Ec (Aspirin) 325 Mg Tablet.dr 325 Mg PO DAILYWBKFT Atorvastatin Calcium 40 Mg Tablet 40 Mg PO QHS Vital Signs Vital Signs Date Time Temp Pulse Resp B/P (MAP) Pulse Ox O2 Delivery O2 Flow Rate FiO2 04/20/18 08:00 Room Air 04/20/18 07:00 96.7 88 16 150/78 (102) 94 96.7 Labs Laboratory Tests Test 04/19/18 08:45 04/20/18 04:15 White Blood Count 9.5 x10^3/uL (4.0-11.0) 7.8 x10^3/uL (4.0-11.0) Red Blood Count 4.44 x10^6/uL (4.30-5.70) 4.45 x10^6/uL (4.30-5.70) Hemoglobin 14.4 g/dL (13.0-17.5) 14.5 g/dL (13.0-17.5) Hematocrit 42.8 % (39.0-53.0) 43.4 % (39.0-53.0) Mean Corpuscular Volume 96 fL (79-100) 98 fL (79-100) Mean Corpuscular Hemoglobin 32 pg (25-35) 33 pg (25-35) Mean Corpuscular Hemoglobin Concent 34 g/dL (31-37) 33 g/dL (31-37) Red Cell Distribution Width 12.9 % (11.5-14.5) 12.9 % (11.5-14.5) Platelet Count 249 x10^3/uL (140-400) 228 x10^3/uL (140-400) Neutrophils (%) (Auto) 81 % (31-73) 67 % (31-73) Lymphocytes (%) (Auto) 12 % (24-48) 21 % (24-48) Monocytes (%) (Auto) 7 % (0-9) 8 % (0-9) Eosinophils (%) (Auto) 0 % (0-3) 3 % (0-3) Basophils (%) (Auto) 1 % (0-3) 1 % (0-3) Neutrophils # (Auto) 7.7 x10^3uL (1.8-7.7) 5.2 x10^3uL (1.8-7.7) Lymphocytes # (Auto) 1.1 x10^3/uL (1.0-4.8) 1.6 x10^3/uL (1.0-4.8) Monocytes # (Auto) 0.6 x10^3/uL (0.0-1.1) 0.6 x10^3/uL (0.0-1.1) Eosinophils # (Auto) 0.0 x10^3/uL (0.0-0.7) 0.3 x10^3/uL (0.0-0.7) Basophils # (Auto) 0.0 x10^3/uL (0.0-0.2) 0.1 x10^3/uL (0.0-0.2) Sodium Level 143 mmol/L (136-145) 145 mmol/L (136-145) Potassium Level 4.0 mmol/L (3.5-5.1) 4.4 mmol/L (3.5-5.1) Chloride Level 104 mmol/L (98-107) 108 mmol/L (98-107) Carbon Dioxide Level 28 mmol/L (21-32) 30 mmol/L (21-32) Anion Gap 11 (6-14) 7 (6-14) Blood Urea Nitrogen 30 mg/dL (8-26) 31 mg/dL (8-26) Creatinine 0.9 mg/dL (0.7-1.3) 0.8 mg/dL (0.7-1.3) Estimated GFR (Cockcroft-Gault) 99.0 113.4 BUN/Creatinine Ratio 33 (6-20) 39 (6-20) Glucose Level 120 mg/dL (70-99) 110 mg/dL (70-99) Calcium Level 9.7 mg/dL (8.5-10.1) 9.7 mg/dL (8.5-10.1) Total Bilirubin 1.1 mg/dL (0.2-1.0) 1.1 mg/dL (0.2-1.0) Aspartate Amino Transf (AST/SGOT) 26 U/L (15-37) 23 U/L (15-37) Alanine Aminotransferase (ALT/SGPT) 29 U/L (16-63) 32 U/L (16-63) Alkaline Phosphatase 82 U/L (46-116) 81 U/L (46-116) Total Protein 8.1 g/dL (6.4-8.2) 7.3 g/dL (6.4-8.2) Albumin 3.5 g/dL (3.4-5.0) 3.4 g/dL (3.4-5.0) Albumin/Globulin Ratio 0.8 (1.0-1.7) 0.9 (1.0-1.7) Laboratory Tests Test 04/20/18 04:15 White Blood Count 7.8 x10^3/uL (4.0-11.0) Red Blood Count 4.45 x10^6/uL (4.30-5.70) Hemoglobin 14.5 g/dL (13.0-17.5) Hematocrit 43.4 % (39.0-53.0) Mean Corpuscular Volume 98 fL (79-100) Mean Corpuscular Hemoglobin 33 pg (25-35) Mean Corpuscular Hemoglobin Concent 33 g/dL (31-37) Red Cell Distribution Width 12.9 % (11.5-14.5) Platelet Count 228 x10^3/uL (140-400) Neutrophils (%) (Auto) 67 % (31-73) Lymphocytes (%) (Auto) 21 % (24-48) Monocytes (%) (Auto) 8 % (0-9) Eosinophils (%) (Auto) 3 % (0-3) Basophils (%) (Auto) 1 % (0-3) Neutrophils # (Auto) 5.2 x10^3uL (1.8-7.7) Lymphocytes # (Auto) 1.6 x10^3/uL (1.0-4.8) Monocytes # (Auto) 0.6 x10^3/uL (0.0-1.1) Eosinophils # (Auto) 0.3 x10^3/uL (0.0-0.7) Basophils # (Auto) 0.1 x10^3/uL (0.0-0.2) Sodium Level 145 mmol/L (136-145) Potassium Level 4.4 mmol/L (3.5-5.1) Chloride Level 108 mmol/L (98-107) Carbon Dioxide Level 30 mmol/L (21-32) Anion Gap 7 (6-14) Blood Urea Nitrogen 31 mg/dL (8-26) Creatinine 0.8 mg/dL (0.7-1.3) Estimated GFR (Cockcroft-Gault) 113.4 BUN/Creatinine Ratio 39 (6-20) Glucose Level 110 mg/dL (70-99) Calcium Level 9.7 mg/dL (8.5-10.1) Total Bilirubin 1.1 mg/dL (0.2-1.0) Aspartate Amino Transf (AST/SGOT) 23 U/L (15-37) Alanine Aminotransferase (ALT/SGPT) 32 U/L (16-63) Alkaline Phosphatase 81 U/L (46-116) Total Protein 7.3 g/dL (6.4-8.2) Albumin 3.4 g/dL (3.4-5.0) Albumin/Globulin Ratio 0.9 (1.0-1.7) Allergies Allergies Coded Allergies Type Severity Reaction Last Updated Verified No Known Drug Allergies 04/10/18 No Disposition/Orders: Other (TO [facility] REHAB BED TODAY) Patient Instructions D/C PLANNING 32 MIN GANESH ASENCIO MD Apr 20, 2018 11:30
--- NOTE | 2018-04-20 11:31 | DISCH ---
DISCHARGE WITH HOME HEALTH DISCHARGE INFORMATION: Final Diagnosis: Problems Medical Problems: (1) Stroke Status: Acute Condition on Discharge: Guarded CODE STATUS: Code Status: Full HOME HEALTH: Face to Face: I certify this patient is under my care and that I, or a nurse practitioner or physician's stores assistant working with me, had a face to face encounter that meets the physician face to face encounter requirements with this patient on []. Medical Complications: CVA Physical Therapy For: Evalulation/Treatment Occupational Therapy For: Evaluation/Treatment Speech Language Pathology For: Evaluation/Treatment Home Health Aide For: Self-care Pt Meets Homebound Status: Poor coordination w/ amb., Poor cognition POST DISCHARGE ORDERS: Activity Instructions for Disc: Activity as tolerated Weight Bearing Status after Di: As tolerated DIET AFTER DISCHARGE: Cardiac CHECKS AFTER DISCHARGE: Checks after discharge: Check blood press - daily TREATMENT/EQUIPMENT ORDERS: Adaptive Equipment Issued: Bath Bench, Four wheeled walker CERTIFICATION STATEMENT: Certification Statement: Certification Statement: Based on the above finding, I certify that this patient is confined to the home and needs intermittent penitentiary care, physical therapy and/or speech therapy, or continues to need occupational therapy.~ This patient is under my care, and I have initiated the establishment of the plan of care.~ This patient will be followed by myself or a community physician who will periodically review the plan of care. Home Meds Active Scripts Aspirin (ASPIRIN EC) 325 Mg Tablet., 325 MG PO DAILYWBKFT, #30 TAB.SR Prov:KELY ZAMORA MD 04/14/18 Atorvastatin Calcium (ATORVASTATIN CALCIUM) 40 Mg Tablet, 40 MG PO QHS, #30 TAB Prov:KELY ZAMORA MD 04/14/18 GANESH ASENCIO MD Apr 20, 2018 11:31
[2018-04-20] MEDS ORDERED: CLOP75TA PO (11:34)
[2018-04-20] MEDS ORDERED: DOCU-109 PO (11:34)
--- NOTE | 2018-04-20 11:35 | DISCH ---
DISCHARGE DISCHARGE INFORMATION: FINAL DIAGNOSIS Problems Medical Problems: (1) Stroke Status: Acute CONDITION ON DISCHARGE: Guarded CODE STATUS: Code Status: Full HALFWAY: SNF STAY <30 DAYS: Yes HOSPICE: HOSPICE: No HOSPICE EVAL & TREAT: No POST DISCHARGE ORDERS: ACTIVITY ORDERS: Activity as tolerated WEIGHT BEARING STATUS: As tolerated DIET AFTER DISCHARGE: Cardiac CHECKS AFTER DISCHARGE: CHECKS AFTER DISCHARGE: Check blood press - daily TREATMENT/EQUIPMENT ORDERS: ADAPTIVE EQUIPMENT NEEDED: Bath Bench, Four wheeled walker Physical Therapy For: Evalulation/Treatment Occupational Therapy For: Evaluation/Treatment Speech Language Pathology For: Evaluation/Treatment DISCHARGE MEDICATIONS: Home Meds Active Scripts Aspirin (ASPIRIN EC) 325 Mg Tablet.dr, 325 MG PO DAILYWBKFT, #30 TAB.SR Prov:KELY ZAMORA MD 04/14/18 Atorvastatin Calcium (ATORVASTATIN CALCIUM) 40 Mg Tablet, 40 MG PO QHS, #30 TAB Prov:KELY ZAMORA MD 04/14/18 GANESH ASENCIO MD Apr 20, 2018 11:35
== END 2018-04-20 15:00 | DRG 67 ==
LOC: ER 12:18 → 6 SOUTH 15:00
PROVIDERS: ADMIT Internal Medicine; ATTEND Internal Medicine
DX: I65.21 Occlusion and stenosis of right carotid artery (principal); G93.41 Metabolic encephalopathy; I69.354 Hemiplegia and hemiparesis following cerebral infarction affecting left non-dominant side; I10 Essential (primary) hypertension; R13.19 Other dysphagia; E78.5 Hyperlipidemia, unspecified; F03.90 Unspecified dementia, unspecified severity, without behavioral disturbance, psychotic disturbance, mood disturbance, and anxiety; Z98.49 Cataract extraction status, unspecified eye; Z82.49 Family history of ischemic heart disease and other diseases of the circulatory system; Z82.3 Family history of stroke
CPT/HCPCS: 36415; 70450; 70496; 70498; 71045; 80048; 80053; 81001; 82140; 82962; 83735; 84484; 85025; 85610; 85730; 87040; 87641; 93005; 96360; J7030; Q9967; 92526; 92610; 97110; 97530; 97535; 99285-25